=== PATIENT | male | born 1945 | race African-American/Black ===

== ENCOUNTER 2016-08-17 13:04 | Inpatient (IN) | payer OTHER ==
--- NOTE | 2016-08-17 17:32 | HP ---
Admission ROS [facility] Chief Complaint: i am here for rehab from alcohol Allergies/Adverse Reactions: Allergies Allergy/AdvReac Type Severity Reaction Status Date / Time No Known Allergies Allergy Verified 08/18/14 20:03 History of Present Illness: this 71 years old male with alcohol dependence for rehab,[place] htn gerd neuropathy hypercholesterolemia nicotine dependence longest period of sobriety 19 months Exam Limitations: No Limitations - Ebola screening Have you traveled outside of the country in the last 21 days: No (N) Have you had contact with anyone from an Ebola affected area: No Do you have a fever: No - Review of Systems Constitutional: No Symptoms Reported EENT: reports: No Symptoms Reported Respiratory: reports: No Symptoms reported Cardiac: reports: No Symptoms Reported GI: reports: No Symptoms Reported : reports: No Symptoms Reported Musculoskeletal: reports: No Symptoms Reported Integumentary: reports: No Symptoms Reported Neuro: reports: No Symptoms reported Endocrine: reports: No Symptoms Reported Hematology: reports: No Symptoms Reported Psychiatric: reports: No Sypmtoms Reported, Judgement Intact, Mood/Affect Appropiate, Orientated x3 Patient History - Patient Medical History Hx Anemia: No Hx Asthma: No Hx Chronic Obstructive Pulmonary Disease (COPD): No Hx Cancer: No Hx Cardiac Disorders: No Hx Congestive Heart Failure: No Hx Hypertension: Yes (on med) Hx Hypercholesterolemia: Yes (on med) Hx Pacemaker: No HX Cerebrovascular Accident: No Hx Seizures: No Hx Dementia: No Hx Diabetes: No Hx Gastrointestinal Disorders: Yes (ACID REFLUX) Hx Liver Disease: Yes (HEP C) Hx Genitourinary Disorders: No Hx Sexually Transmitted Disorders: No Hx Renal Disease (ESRD): No Hx Thyroid Disease: No Hx Human Immunodeficiency Virus (HIV): No Hx Hepatitis C: Yes (under the care of liver specialist) Hx Depression: No Hx Suicide Attempt: No Hx Bipolar Disorder: No Hx Schizophrenia: No Other Medical History: no suicida,mno homicidal - Patient Surgical History Past Surgical History: Yes Hx Neurologic Surgery: No Hx Cataract Extraction: No Hx Cardiac Surgery: No Hx Lung Surgery: No Hx Breast Surgery: No Hx Breast Biopsy: No Hx Abdominal Surgery: No Hx Appendectomy: No Hx Cholecystectomy: No Hx Genitourinary Surgery: No Hx Section: No Hx Orthopedic Surgery: Yes (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,3RD,4TH,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 History Hx Alcohol Use: Yes Hx Substance Use: No Substance Use Type: Alcohol Hx Substance Use Treatment: Yes ([place] today 08/17/16) - Substances Abused Alcohol Route: Oral Frequency: Daily Amount used: 3 to 4 pints of vodka Age of first use: 18 Date of Last Use: 08/11/16 Family Disease History - Family Disease History Family Disease History: Heart Disease: Father ( OF [place]), Sister ([place] X 1) Admission Physical Exam [facility] - Physical General Appearance: Yes: Within Normal Limits HEENTM: Yes: Within Normal Limits, Hearing grossly Normal, Normal ENT Inspection , Pharynx Normal Respiratory: Yes: Lungs Clear, Normal Breath Sounds, No Respiratory Distress Neck: Yes: Supple, Trachea in good position Breast: Yes: Within Normal Limits Cardiology: Yes: Within Normal Limits, Regular Rhythm, Regular Rate, S1, S2 Abdominal: Yes: Within Normal Limits, Normal Bowel Sounds, Non Tender, Flat, Soft Genitourinary: Yes: Within Normal Limits Back: Yes: Within Normal Limits Musculoskeletal: Yes: Within Normal Limits Extremities: Yes: Within Normal Limits 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, Fully Oriented, Alert, Motor Strength 5/5 Integumentary: Yes: Within Normal Limits Lymphatic: Yes: Within Normal Limits - Diagnostic (1) Alcohol dependence Current Visit: No Status: Active (2) Essential hypertension Current Visit: No Status: Active (3) Gastroesophageal reflux disease Current Visit: No Status: Active (4) Weight decreased Current Visit: No Status: Active (5) hypercholesterolemia Current Visit: No Status: Active (6) s/p surgery for fx left elbow Current Visit: No Status: Active (7) syncope alcohol related Current Visit: No Status: Active Cleared for Admission [facility] - Detox or Rehab Claeared for Rehab Admission: Yes [facility] Breath Alcohol Content Breath Alcohol Content: 0
[2016-08-17] MEDS ORDERED: LOPERAMIDE HCL 2 MG CAPSULE PO PRN (17:45)
[2016-08-17] MEDS ORDERED: IBUPROFEN 400 MG TABLET (FP) PO PRN (17:45)
[2016-08-17] MEDS ORDERED: guaiFENesin/D-METHORPHAN HB 10 ML UNIT-DOSE CUPS PO PRN (17:45)
[2016-08-17] MEDS ORDERED: P-EPHED 60MG/TRIPROLIDI 2.5MG TABLET PO PRN (17:45)
[2016-08-17] MEDS ORDERED: hydrOXYzine PAMOATE 25 MG CAPSULE (FP) PO PRN (17:45)
[2016-08-17] MEDS ORDERED: MAGNESIUM CITRATE 300 ML BOTTLE PO PRN (17:45)
[2016-08-17] MEDS ORDERED: ACETAMINOPHEN 325 MG TABLET (FP) PO PRN (17:45)
[2016-08-17] MEDS ORDERED: MENTHOL/PHENOL 1 EACH UD MM PRN (17:45)
[2016-08-17] MEDS ORDERED: MAG HYDROX/AL HYDROX/SIMETH 30 ML UNIT-DOSE CUP PO PRN (17:45)
[2016-08-17 19:15] VITALS: BMI 22.3
[2016-08-17] MEDS: ASPIRIN 81 MG CHEWABLE TABLETS PO SCH (21:48)
[2016-08-17] MEDS: THIAMINE HCL 100 MG TABLET (FP) PO SCH (21:48)
[2016-08-17] MEDS: ATORVASTATIN CA 20 MG TABLET (FP) PO SCH (21:48)
[2016-08-17] MEDS: GABAPENTIN 300 MG CAPSULE (FP) PO SCH (21:48)
[2016-08-17] MEDS: PANTOPRAZOLE 40 MG TABLET (FP) PO SCH (21:49)
[2016-08-17] MEDS: amLODIPine BESYLATE 5 MG TABLET (FP) PO SCH (23:23)
[2016-08-18 00:41] LABS: URINE APPEARANCE CLEAR; URINE BILIRUBIN NEGATIVE (NEGATIVE); URINE BLOOD NEGATIVE (NEGATIVE); URINE COLOR YELLOW; URINE GLUCOSE (UA) NEGATIVE (NEGATIVE); URINE KETONE NEGATIVE (NEGATIVE); URINE LEUK ESTERASE NEGATIVE (NEGATIVE); URINE NITRITE NEGATIVE (NEGATIVE); URINE PROTEIN NEGATIVE (NEGATIVE); URINE UROBILINOGEN NEGATIVE E.U./dl (0.2-1.0)
[2016-08-18] MEDS: GABAPENTIN 300 MG CAPSULE (FP) PO SCH ×3 (06:48→21:44)
--- NOTE | 2016-08-18 07:10 | HP ---
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 He denies that he was homeless at the time contrary to what was reported in Dr Feng who saw him during his July 2014 admission in rehab to this unit. Denies previous psychiatric admission, treatment with psychotropic medication or suicidal ideations/ attempt. Report feeling and sleeping well at present Physical/Sexual Abuse/Trauma History: Denies history of emotional, physical or sexual as well as DV relationship Additional Comment: Reports history of multiple arrests including at least 2 felony convictions. Denies being on parole/probation currently Vital Signs: Vital Signs - 24 hr 08/17/16 08/17/16 08/18/16 19:11 20:30 00:30 Temperature 95.3 F L Pulse Rate 87 83 Respiratory 18 18 18 Rate Blood Pressure 121/67 92/35 08/18/16 08/18/16 03:30 06:55 Temperature 97.4 F L Pulse Rate 70 Respiratory 18 18 Rate Blood Pressure 130/86 Allergies/Adverse Reactions: Allergies Allergy/AdvReac Type Severity Reaction Status Date / Time No Known Allergies Allergy Verified 08/17/16 17:45 Date of last physical exam: 08/17/16 Concur with the findings of this exam: Yes - Substance Abuse/Tx History Hx Alcohol Use: Yes Hx Substance Use: No Substance Use Type: Alcohol (Started drinking alcohol at age 18, consumes 3-4 pints daily. Last drink on 08/11/16) Hx Substance Use Treatment: Yes (multiple inpt detox/rehab including one of each @ [facility]) - Admission Criteria Previous failed treatment: No Poor recovery environment: Yes Comorbidities: Yes Lacks judgement: Yes Mental Status Exam - Mental Status Exam Alert and Oriented to: Time, Place, Person Cognitive Function: Fair Patient Appearance: Well Groomed Mood: Hopeful, Euthymic Patient Behavior: Cooperative Speech Pattern: Clear Voice Loudness: Normal Thought Process: Intact Hallucinations: Denies Suicidal Ideation: Denies Homicidal Ideation: Denies Insight/Judgement: Fair Sleep: Well Appetite: Good Muscle strength/Tone: Normal Gait/Station: Normal Psychiatric Findings - Problem List ([place] 1, 2,3) (1) Alcohol dependence Current Visit: No Status: Active (2) Nicotine dependence Current Visit: No Status: Acute (3) Essential hypertension Current Visit: No Status: Active (4) Gastroesophageal reflux disease Current Visit: No Status: Active (5) hypercholesterolemia Current Visit: No Status: Active (6) s/p surgery for fx left elbow Current Visit: No Status: Active - Initial Treatment Plan Initial Treatment Plan: Monitor progress
[2016-08-18 10:05] LABS: MCH 31.2 pg (25.7-33.7); MCHC 32.3 g/dl (32.0-35.9); MEAN CELL VOLUME 96.3 fl (80-96); MEAN PLT VOLUME 9.5 fl (7.5-11.1); PLATELET COUNT 192 K/MM3 (134-434); RDW 17.3 % (11.9-15.9); WHITE BLOOD COUNT 3.3 K/mm3 (4.0-10.0)
--- NOTE | 2016-08-18 10:18 | EKG ---
Test Reason : Blood Pressure : / mmHG Vent. Rate : 086 BPM Atrial Rate : 086 BPM P-R Int : 148 ms QRS Dur : 080 ms QT Int : 354 ms P-R-T Axes : 072 014 060 degrees QTc Int : 423 ms NORMAL SINUS RHYTHM SEPTAL INFARCT (CITED ON OR BEFORE 28-JUN-2012) ABNORMAL ECG WHEN COMPARED WITH ECG OF 28-JUN-2012 20:00, QUESTIONABLE CHANGE IN INITIAL FORCES OF SEPTAL LEADS Confirmed by CARLOS EDUARDO SAUNDERS MD ([id number]) on 08/18/2016 10:17:49 AM Referred By: Zaid Cotter Confirmed By:CARLOS EDAURDO SAUNDERS MD
[2016-08-18] MEDS: PANTOPRAZOLE 40 MG TABLET (FP) PO SCH (10:46)
[2016-08-18] MEDS: PRENATAL VITAMINS W/ FOLIC ACID TABLET (FP) PO SCH (10:46)
[2016-08-18] MEDS: amLODIPine BESYLATE 5 MG TABLET (FP) PO SCH (10:46)
[2016-08-18] MEDS: ASPIRIN 81 MG CHEWABLE TABLETS PO SCH (10:46)
[2016-08-18 12:03] LABS: ALK PHOS 86 U/L (45-117); ANION GAP 10 (8-16); BILIRUBIN,TOTAL 0.5 mg/dL (0.2-1.0); CALCIUM 9.1 mg/dL (8.5-10.1); CO2 28 mmol/L (21-32); CREATININE 0.9 mg/dL (0.7-1.3); GLUCOSE,RANDOM 89 mg/dL (74-106); SGOT/AST 33 U/L (15-37); SGPT/ALT 31 U/L (12-78); TOT PROT 8.1 g/dl (6.4-8.2)
[2016-08-18 12:09] LABS: HIV 1 & 2 AB NEGATIVE; HIV 1 AGp24 NEGATIVE
[2016-08-18] MEDS: THIAMINE HCL 100 MG TABLET (FP) PO SCH (21:44)
[2016-08-18] MEDS: ATORVASTATIN CA 20 MG TABLET (FP) PO SCH (21:44)
[2016-08-19] MEDS: MAGNESIUM HYDROX 2400MG/30ML ORAL SUSPENSION 30 ML CUP PO PRN ×2 (00:02→15:18)
[2016-08-19] MEDS: GABAPENTIN 300 MG CAPSULE (FP) PO SCH ×3 (06:18→21:21)
[2016-08-19] MEDS: PRENATAL VITAMINS W/ FOLIC ACID TABLET (FP) PO SCH (09:42)
[2016-08-19] MEDS: PANTOPRAZOLE 40 MG TABLET (FP) PO SCH (09:43)
[2016-08-19] MEDS: ASPIRIN 81 MG CHEWABLE TABLETS PO SCH (09:43)
[2016-08-19] MEDS: amLODIPine BESYLATE 5 MG TABLET (FP) PO SCH (09:43)
[2016-08-19] MEDS: ATORVASTATIN CA 20 MG TABLET (FP) PO SCH (21:21)
[2016-08-19] MEDS: THIAMINE HCL 100 MG TABLET (FP) PO SCH (21:21)
[2016-08-20] MEDS: diphenhydrAMINE HCL 50 MG CAPSULE PO PRN (00:47)
[2016-08-20] MEDS: GABAPENTIN 300 MG CAPSULE (FP) PO SCH ×3 (06:15→21:12)
[2016-08-20] MEDS: PRENATAL VITAMINS W/ FOLIC ACID TABLET (FP) PO SCH (09:30)
[2016-08-20] MEDS: ASPIRIN 81 MG CHEWABLE TABLETS PO SCH (09:30)
[2016-08-20] MEDS: PANTOPRAZOLE 40 MG TABLET (FP) PO SCH (09:30)
[2016-08-20] MEDS: amLODIPine BESYLATE 5 MG TABLET (FP) PO SCH (09:30)
[2016-08-20] MEDS: THIAMINE HCL 100 MG TABLET (FP) PO SCH (21:12)
[2016-08-20] MEDS: ATORVASTATIN CA 20 MG TABLET (FP) PO SCH (21:12)
[2016-08-21] MEDS: diphenhydrAMINE HCL 50 MG CAPSULE PO PRN (01:14)
[2016-08-21] MEDS: GABAPENTIN 300 MG CAPSULE (FP) PO SCH ×3 (06:17→22:11)
[2016-08-21] MEDS: PANTOPRAZOLE 40 MG TABLET (FP) PO SCH (09:50)
[2016-08-21] MEDS: amLODIPine BESYLATE 5 MG TABLET (FP) PO SCH (09:50)
[2016-08-21] MEDS: PRENATAL VITAMINS W/ FOLIC ACID TABLET (FP) PO SCH (09:50)
[2016-08-21] MEDS: ASPIRIN 81 MG CHEWABLE TABLETS PO SCH (09:50)
[2016-08-21] MEDS: THIAMINE HCL 100 MG TABLET (FP) PO SCH (22:11)
[2016-08-21] MEDS: ATORVASTATIN CA 20 MG TABLET (FP) PO SCH (22:11)
[2016-08-22] MEDS: GABAPENTIN 300 MG CAPSULE (FP) PO SCH ×3 (06:07→21:12)
[2016-08-22] MEDS ORDERED: PT OWN MED DRAWER 7, Y5N ONE (08:41)
[2016-08-22] MEDS: VITAMIN E 400 INTERNATIONAL-UNITS CAPSULE (FP) PO SCH (09:49)
[2016-08-22] MEDS: ASPIRIN 81 MG CHEWABLE TABLETS PO SCH (09:49)
[2016-08-22] MEDS: PANTOPRAZOLE 40 MG TABLET (FP) PO SCH (09:49)
[2016-08-22] MEDS: amLODIPine BESYLATE 5 MG TABLET (FP) PO SCH (09:49)
[2016-08-22] MEDS: PRENATAL VITAMINS W/ FOLIC ACID TABLET (FP) PO SCH (09:49)
[2016-08-22] MEDS: ATORVASTATIN CA 20 MG TABLET (FP) PO SCH (21:12)
[2016-08-22] MEDS: THIAMINE HCL 100 MG TABLET (FP) PO SCH (21:12)
[2016-08-23] MEDS: GABAPENTIN 300 MG CAPSULE (FP) PO SCH ×3 (05:55→22:08)
[2016-08-23] MEDS ORDERED: PT OWN MED DRAWER 7, Y5N ONE (09:10)
[2016-08-23] MEDS: PANTOPRAZOLE 40 MG TABLET (FP) PO SCH (09:47)
[2016-08-23] MEDS: amLODIPine BESYLATE 5 MG TABLET (FP) PO SCH (09:47)
[2016-08-23] MEDS: ASPIRIN 81 MG CHEWABLE TABLETS PO SCH (09:47)
[2016-08-23] MEDS: VITAMIN E 400 INTERNATIONAL-UNITS CAPSULE (FP) PO SCH (09:48)
[2016-08-23] MEDS: PRENATAL VITAMINS W/ FOLIC ACID TABLET (FP) PO SCH (09:50)
[2016-08-23] MEDS: THIAMINE HCL 100 MG TABLET (FP) PO SCH (22:08)
[2016-08-23] MEDS: ATORVASTATIN CA 20 MG TABLET (FP) PO SCH (22:09)
[2016-08-24] MEDS: diphenhydrAMINE HCL 50 MG CAPSULE PO PRN ×2 (01:14→21:46)
[2016-08-24] MEDS: GABAPENTIN 300 MG CAPSULE (FP) PO SCH ×3 (06:11→21:47)
[2016-08-24] MEDS: PANTOPRAZOLE 40 MG TABLET (FP) PO SCH (09:45)
[2016-08-24] MEDS: ASPIRIN 81 MG CHEWABLE TABLETS PO SCH (09:45)
[2016-08-24] MEDS: amLODIPine BESYLATE 5 MG TABLET (FP) PO SCH (09:45)
[2016-08-24] MEDS: PRENATAL VITAMINS W/ FOLIC ACID TABLET (FP) PO SCH (09:45)
[2016-08-24] MEDS: VITAMIN E 400 INTERNATIONAL-UNITS CAPSULE (FP) PO SCH (10:52)
[2016-08-24] MEDS ORDERED: IBUPROFEN 600 MG TABLET (FP) PO PRN (13:26)
[2016-08-24] MEDS: THIAMINE HCL 100 MG TABLET (FP) PO SCH (21:46)
[2016-08-24] MEDS: ATORVASTATIN CA 20 MG TABLET (FP) PO SCH (21:46)
[2016-08-25] MEDS: GABAPENTIN 300 MG CAPSULE (FP) PO SCH ×3 (06:03→21:03)
[2016-08-25] MEDS: PANTOPRAZOLE 40 MG TABLET (FP) PO SCH (09:54)
[2016-08-25] MEDS: PRENATAL VITAMINS W/ FOLIC ACID TABLET (FP) PO SCH (09:54)
[2016-08-25] MEDS: ASPIRIN 81 MG CHEWABLE TABLETS PO SCH (09:54)
[2016-08-25] MEDS: amLODIPine BESYLATE 5 MG TABLET (FP) PO SCH (09:54)
[2016-08-25] MEDS: VITAMIN E 400 INTERNATIONAL-UNITS CAPSULE (FP) PO SCH (09:56)
[2016-08-25] MEDS ORDERED: PT OWN MED DRAWER 7, Y5N ONE (09:57)
[2016-08-25] MEDS: THIAMINE HCL 100 MG TABLET (FP) PO SCH (21:02)
[2016-08-25] MEDS: ATORVASTATIN CA 20 MG TABLET (FP) PO SCH (21:02)
[2016-08-25] MEDS: diphenhydrAMINE HCL 50 MG CAPSULE PO PRN (21:03)
[2016-08-26] MEDS: GABAPENTIN 300 MG CAPSULE (FP) PO SCH ×3 (05:53→21:13)
[2016-08-26] MEDS: amLODIPine BESYLATE 5 MG TABLET (FP) PO SCH (09:43)
[2016-08-26] MEDS: PRENATAL VITAMINS W/ FOLIC ACID TABLET (FP) PO SCH (09:43)
[2016-08-26] MEDS: ASPIRIN 81 MG CHEWABLE TABLETS PO SCH (09:43)
[2016-08-26] MEDS: PANTOPRAZOLE 40 MG TABLET (FP) PO SCH (09:43)
[2016-08-26] MEDS ORDERED: PT OWN MED DRAWER 7, Y5N ONE (09:44)
[2016-08-26] MEDS: VITAMIN E 400 INTERNATIONAL-UNITS CAPSULE (FP) PO SCH (09:44)
[2016-08-26] MEDS: ATORVASTATIN CA 20 MG TABLET (FP) PO SCH (21:13)
[2016-08-26] MEDS: THIAMINE HCL 100 MG TABLET (FP) PO SCH (21:13)
[2016-08-26] MEDS: diphenhydrAMINE HCL 50 MG CAPSULE PO PRN (21:14)
[2016-08-27] MEDS: GABAPENTIN 300 MG CAPSULE (FP) PO SCH ×3 (05:55→21:12)
[2016-08-27] MEDS ORDERED: PT OWN MED DRAWER 7, Y5N ONE (08:24)
[2016-08-27] MEDS: PRENATAL VITAMINS W/ FOLIC ACID TABLET (FP) PO SCH (09:45)
[2016-08-27] MEDS: amLODIPine BESYLATE 5 MG TABLET (FP) PO SCH (09:46)
[2016-08-27] MEDS: ASPIRIN 81 MG CHEWABLE TABLETS PO SCH (09:46)
[2016-08-27] MEDS: PANTOPRAZOLE 40 MG TABLET (FP) PO SCH (09:46)
[2016-08-27] MEDS: VITAMIN E 400 INTERNATIONAL-UNITS CAPSULE (FP) PO SCH (09:55)
[2016-08-27] MEDS: ATORVASTATIN CA 20 MG TABLET (FP) PO SCH (21:11)
[2016-08-27] MEDS: THIAMINE HCL 100 MG TABLET (FP) PO SCH (21:11)
[2016-08-28] MEDS: GABAPENTIN 300 MG CAPSULE (FP) PO SCH ×3 (05:51→21:30)
[2016-08-28] MEDS: PANTOPRAZOLE 40 MG TABLET (FP) PO SCH (09:44)
[2016-08-28] MEDS: PRENATAL VITAMINS W/ FOLIC ACID TABLET (FP) PO SCH (09:44)
[2016-08-28] MEDS: ASPIRIN 81 MG CHEWABLE TABLETS PO SCH (09:44)
[2016-08-28] MEDS: amLODIPine BESYLATE 5 MG TABLET (FP) PO SCH (09:44)
[2016-08-28] MEDS: VITAMIN E 400 INTERNATIONAL-UNITS CAPSULE (FP) PO SCH (10:59)
[2016-08-28] MEDS: THIAMINE HCL 100 MG TABLET (FP) PO SCH (21:29)
[2016-08-28] MEDS: ATORVASTATIN CA 20 MG TABLET (FP) PO SCH (21:30)
[2016-08-28] MEDS: diphenhydrAMINE HCL 50 MG CAPSULE PO PRN (21:30)
[2016-08-29] MEDS: GABAPENTIN 300 MG CAPSULE (FP) PO SCH ×3 (05:53→21:20)
[2016-08-29] MEDS: amLODIPine BESYLATE 5 MG TABLET (FP) PO SCH (09:42)
[2016-08-29] MEDS: ASPIRIN 81 MG CHEWABLE TABLETS PO SCH (09:42)
[2016-08-29] MEDS: PRENATAL VITAMINS W/ FOLIC ACID TABLET (FP) PO SCH (09:42)
[2016-08-29] MEDS: PANTOPRAZOLE 40 MG TABLET (FP) PO SCH (09:42)
[2016-08-29] MEDS: VITAMIN E 400 INTERNATIONAL-UNITS CAPSULE (FP) PO SCH (09:42)
[2016-08-29] MEDS: ATORVASTATIN CA 20 MG TABLET (FP) PO SCH (21:19)
[2016-08-29] MEDS: THIAMINE HCL 100 MG TABLET (FP) PO SCH (21:19)
[2016-08-29] MEDS: diphenhydrAMINE HCL 50 MG CAPSULE PO PRN (21:20)
[2016-08-30] MEDS: GABAPENTIN 300 MG CAPSULE (FP) PO SCH ×3 (05:55→21:29)
[2016-08-30] MEDS ORDERED: PT OWN MED DRAWER 7, Y5N ONE (08:43)
[2016-08-30] MEDS: VITAMIN E 400 INTERNATIONAL-UNITS CAPSULE (FP) PO SCH (09:48)
[2016-08-30] MEDS: ASPIRIN 81 MG CHEWABLE TABLETS PO SCH (09:48)
[2016-08-30] MEDS: PRENATAL VITAMINS W/ FOLIC ACID TABLET (FP) PO SCH (09:48)
[2016-08-30] MEDS: amLODIPine BESYLATE 5 MG TABLET (FP) PO SCH (09:48)
[2016-08-30] MEDS: PANTOPRAZOLE 40 MG TABLET (FP) PO SCH (09:48)
[2016-08-30] MEDS: THIAMINE HCL 100 MG TABLET (FP) PO SCH (21:28)
[2016-08-30] MEDS: diphenhydrAMINE HCL 50 MG CAPSULE PO PRN (21:29)
[2016-08-30] MEDS: ATORVASTATIN CA 20 MG TABLET (FP) PO SCH (21:29)
[2016-08-31] MEDS: GABAPENTIN 300 MG CAPSULE (FP) PO SCH ×3 (05:52→21:57)
[2016-08-31] MEDS: PRENATAL VITAMINS W/ FOLIC ACID TABLET (FP) PO SCH (09:40)
[2016-08-31] MEDS: PANTOPRAZOLE 40 MG TABLET (FP) PO SCH (09:40)
[2016-08-31] MEDS: ASPIRIN 81 MG CHEWABLE TABLETS PO SCH (09:40)
[2016-08-31] MEDS: amLODIPine BESYLATE 5 MG TABLET (FP) PO SCH (09:40)
[2016-08-31] MEDS: VITAMIN E 400 INTERNATIONAL-UNITS CAPSULE (FP) PO SCH (09:42)
[2016-08-31] MEDS ORDERED: PT OWN MED DRAWER 7, Y5N ONE (09:43)
[2016-08-31] MEDS: ATORVASTATIN CA 20 MG TABLET (FP) PO SCH (21:57)
[2016-08-31] MEDS: diphenhydrAMINE HCL 50 MG CAPSULE PO PRN (21:57)
[2016-08-31] MEDS: THIAMINE HCL 100 MG TABLET (FP) PO SCH (21:57)
[2016-09-01] MEDS: GABAPENTIN 300 MG CAPSULE (FP) PO SCH ×3 (05:56→22:05)
[2016-09-01] MEDS ORDERED: PT OWN MED DRAWER 7, Y5N ONE (08:51)
[2016-09-01] MEDS: amLODIPine BESYLATE 5 MG TABLET (FP) PO SCH (09:44)
[2016-09-01] MEDS: ASPIRIN 81 MG CHEWABLE TABLETS PO SCH (09:45)
[2016-09-01] MEDS: PRENATAL VITAMINS W/ FOLIC ACID TABLET (FP) PO SCH (09:45)
[2016-09-01] MEDS: PANTOPRAZOLE 40 MG TABLET (FP) PO SCH (09:45)
[2016-09-01] MEDS: VITAMIN E 400 INTERNATIONAL-UNITS CAPSULE (FP) PO SCH (09:45)
[2016-09-01] MEDS: ATORVASTATIN CA 20 MG TABLET (FP) PO SCH (22:05)
[2016-09-01] MEDS: THIAMINE HCL 100 MG TABLET (FP) PO SCH (22:05)
[2016-09-01] MEDS: diphenhydrAMINE HCL 50 MG CAPSULE PO PRN (22:06)
[2016-09-02] MEDS: GABAPENTIN 300 MG CAPSULE (FP) PO SCH ×3 (06:24→21:05)
[2016-09-02] MEDS ORDERED: PT OWN MED DRAWER 7, Y5N ONE (08:46)
[2016-09-02] MEDS: amLODIPine BESYLATE 5 MG TABLET (FP) PO SCH (09:36)
[2016-09-02] MEDS: ASPIRIN 81 MG CHEWABLE TABLETS PO SCH (09:36)
[2016-09-02] MEDS: PANTOPRAZOLE 40 MG TABLET (FP) PO SCH (09:36)
[2016-09-02] MEDS: VITAMIN E 400 INTERNATIONAL-UNITS CAPSULE (FP) PO SCH (09:36)
[2016-09-02] MEDS: PRENATAL VITAMINS W/ FOLIC ACID TABLET (FP) PO SCH (09:36)
[2016-09-02] MEDS: diphenhydrAMINE HCL 50 MG CAPSULE PO PRN (21:04)
[2016-09-02] MEDS: THIAMINE HCL 100 MG TABLET (FP) PO SCH (21:04)
[2016-09-02] MEDS: ATORVASTATIN CA 20 MG TABLET (FP) PO SCH (21:04)
[2016-09-03] MEDS: GABAPENTIN 300 MG CAPSULE (FP) PO SCH ×3 (06:18→21:20)
[2016-09-03] MEDS ORDERED: PT OWN MED DRAWER 7, Y5N ONE (08:25)
[2016-09-03] MEDS: ASPIRIN 81 MG CHEWABLE TABLETS PO SCH (09:41)
[2016-09-03] MEDS: VITAMIN E 400 INTERNATIONAL-UNITS CAPSULE (FP) PO SCH (09:42)
[2016-09-03] MEDS: PANTOPRAZOLE 40 MG TABLET (FP) PO SCH (09:42)
[2016-09-03] MEDS: amLODIPine BESYLATE 5 MG TABLET (FP) PO SCH (09:42)
[2016-09-03] MEDS: PRENATAL VITAMINS W/ FOLIC ACID TABLET (FP) PO SCH (09:42)
[2016-09-03] MEDS: ATORVASTATIN CA 20 MG TABLET (FP) PO SCH (21:20)
[2016-09-03] MEDS: THIAMINE HCL 100 MG TABLET (FP) PO SCH (21:20)
[2016-09-03] MEDS: diphenhydrAMINE HCL 50 MG CAPSULE PO PRN (21:21)
[2016-09-04] MEDS: GABAPENTIN 300 MG CAPSULE (FP) PO SCH ×3 (06:32→22:13)
[2016-09-04] MEDS ORDERED: PT OWN MED DRAWER 7, Y5N ONE (08:33)
[2016-09-04] MEDS: VITAMIN E 400 INTERNATIONAL-UNITS CAPSULE (FP) PO SCH (09:50)
[2016-09-04] MEDS: amLODIPine BESYLATE 5 MG TABLET (FP) PO SCH (09:50)
[2016-09-04] MEDS: PRENATAL VITAMINS W/ FOLIC ACID TABLET (FP) PO SCH (09:50)
[2016-09-04] MEDS: PANTOPRAZOLE 40 MG TABLET (FP) PO SCH (09:50)
[2016-09-04] MEDS: ASPIRIN 81 MG CHEWABLE TABLETS PO SCH (09:50)
[2016-09-04] MEDS ORDERED: AMMONIUM LACTATE 12% LOTION 225 GM BOTTLE TP PRN (14:34)
[2016-09-04] MEDS: diphenhydrAMINE HCL 50 MG CAPSULE PO PRN (22:13)
[2016-09-04] MEDS: THIAMINE HCL 100 MG TABLET (FP) PO SCH (22:13)
[2016-09-04] MEDS: ATORVASTATIN CA 20 MG TABLET (FP) PO SCH (22:13)
[2016-09-05] MEDS: GABAPENTIN 300 MG CAPSULE (FP) PO SCH ×3 (05:56→21:02)
[2016-09-05] MEDS ORDERED: PT OWN MED DRAWER 7, Y5N ONE (08:46)
[2016-09-05] MEDS: amLODIPine BESYLATE 5 MG TABLET (FP) PO SCH (09:44)
[2016-09-05] MEDS: VITAMIN E 400 INTERNATIONAL-UNITS CAPSULE (FP) PO SCH (09:44)
[2016-09-05] MEDS: PANTOPRAZOLE 40 MG TABLET (FP) PO SCH (09:44)
[2016-09-05] MEDS: ASPIRIN 81 MG CHEWABLE TABLETS PO SCH (09:44)
[2016-09-05] MEDS: PRENATAL VITAMINS W/ FOLIC ACID TABLET (FP) PO SCH (09:44)
[2016-09-05 09:58] VITALS: PULSE 81
--- NOTE | 2016-09-05 14:33 | PN ---
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 Discharge Note HPI: Patient addressing Alcohol Dependence comorbid with Nicotine Dependence ROS: HTN, Hyperlipidemia, GERD were medically managed Current Medications: Active Medications Generic Name Dose Route Start Last Admin Trade Name Freq PRN Reason Stop Dose Admin Acetaminophen 650 mg 08/17/16 17:45 Tylenol - PO Q4H PRN PAIN Al Hydroxide/Mg Hydroxide 30 ml 08/17/16 17:45 Mylanta Oral Suspension - PO Q6H PRN DYSPEPSIA Amlodipine Besylate 5 mg 08/17/16 18:30 09/05/16 09:44 Norvasc - PO 5 mg DAILY URIAH Administration Aspirin 81 mg 08/17/16 19:15 09/05/16 09:44 Asa - PO 81 mg DAILY URIAH Administration Atorvastatin Calcium 20 mg 08/17/16 22:00 09/04/16 22:13 Lipitor - PO 20 mg HS URIAH Administration Diphenhydramine HCl 50 mg 08/17/16 17:45 09/04/16 22:13 Benadryl - PO 50 mg HSMR1 PRN Administration INSOMNIA Eucalyptus/Menthol/Phenol/Sorbitol 1 each 08/17/16 17:45 08/29/16 21:20 Cepastat Lozenge - MM 1 each Q4H PRN Administration SORE THROAT Gabapentin 600 mg 08/17/16 22:00 09/05/16 05:56 Neurontin - PO 600 mg TID URIAH Administration Guaifenesin 10 ml 08/17/16 17:45 Robitussin Dm - PO Q6H PRN COUGH Hydroxyzine Pamoate 25 mg 08/17/16 17:45 Vistaril - PO Q4H PRN AGITATION Ibuprofen 600 mg 08/24/16 13:26 Motrin - PO Q6H PRN SEVERE PAIN Lactic Acid 1 applic 09/04/16 14:34 Lac-Hydrin 12 TP BID PRN DRY SKIN Loperamide HCl 4 mg 08/17/16 17:45 Imodium - PO Q6H PRN DIARRHEA Magnesium Citrate 300 ml 08/17/16 17:45 Citroma - PO Q48H PRN CONSTIPATION Magnesium Hydroxide 30 ml 08/17/16 17:45 08/19/16 15:18 Milk Of Magnesia - PO 30 ml DAILY PRN Administration CONSTIPATION Pantoprazole Sodium 40 mg 08/17/16 18:30 09/05/16 09:44 Protonix - PO 40 mg DAILY URIAH Administration Multivit/Folic Acid/Iron 1 tab 08/18/16 10:00 09/05/16 09:44 Vitamins (Sjr) - PO 1 tab DAILY URIAH Administration Pseudoephedrine/Triprolidine 1 combo 08/17/16 17:45 Actifed - PO TID PRN NASAL CONGESTION Thiamine HCl 100 mg 08/17/16 22:00 09/04/16 22:13 Vitamin B1 - PO 100 mg HS URIAH Administration Vitamin E 400 unit 08/22/16 10:00 09/05/16 09:44 Vitamin E - PO 400 unit DAILY URIAH Administration Current Side Effect: No Lab tests ordered: Yes Lab tests reviewed: Yes Provider note:: Patient will complete this program on 09/06/16. He has met his treatment goals and will continue to address his issues in outpatient treatment at [facility]. 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 He is stable for discharge on 09/06/16 Total face to face time:: 35 Mental Status Exam - Mental Status Exam Alert and Oriented to: Time, Place, Person Cognitive Function: Fair Patient Appearance: Well Groomed Mood: Hopeful, Euthymic Affect: Appropriate Patient Behavior: Cooperative Speech Pattern: Clear Voice Loudness: Normal Thought Process: Intact Hallucinations: Denies Suicidal Ideation: Denies Homicidal Ideation: Denies Insight/Judgement: Fair Sleep: Fair Appetite: Good Muscle strength/Tone: Normal Gait/Station: Normal Psychiatric Treatment Plan - Problem List (1) Alcohol dependence Current Visit: No (2) Nicotine dependence Current Visit: No (3) Essential hypertension Current Visit: No (4) Gastroesophageal reflux disease Current Visit: No (5) hypercholesterolemia Current Visit: No (6) s/p surgery for fx left elbow Current Visit: No Initial treatment plan: Patient will be discharged tomorrow and referred to the [facility] for outpatient treatment
[2016-09-05] MEDS: diphenhydrAMINE HCL 50 MG CAPSULE PO PRN (21:02)
[2016-09-05] MEDS: ATORVASTATIN CA 20 MG TABLET (FP) PO SCH (21:02)
[2016-09-05] MEDS: THIAMINE HCL 100 MG TABLET (FP) PO SCH (21:02)
[2016-09-06] MEDS: GABAPENTIN 300 MG CAPSULE (FP) PO SCH (06:00)
[2016-09-06 06:38] VITALS: BP 136/78; TEMP 98.3
[2016-09-06] MEDS ORDERED: PT OWN MED DRAWER 7, Y5N ONE (08:38)
[2016-09-06] MEDS: amLODIPine BESYLATE 5 MG TABLET (FP) PO SCH (09:41)
[2016-09-06] MEDS: VITAMIN E 400 INTERNATIONAL-UNITS CAPSULE (FP) PO SCH (09:41)
[2016-09-06] MEDS: PRENATAL VITAMINS W/ FOLIC ACID TABLET (FP) PO SCH (09:41)
[2016-09-06] MEDS: PANTOPRAZOLE 40 MG TABLET (FP) PO SCH (09:41)
[2016-09-06] MEDS: ASPIRIN 81 MG CHEWABLE TABLETS PO SCH (09:41)
== END 2016-09-06 11:15 | disposition home or self-care (01) | DRG 895 ==
LOC: YASAS 13:04 → Y3W 18:16
PROVIDERS: ADMIT Psychiatry & Neurology Psychiatry; ATTEND Psychiatry & Neurology Psychiatry
PROC: HZ42ZZZ Group Counseling for Substance Abuse Treatment, Cognitive-Behavioral (ICD-10-PCS; principal; 2016-09-05)
DX: F11.20 Opioid dependence, uncomplicated (principal); F17.210 Nicotine dependence, cigarettes, uncomplicated; I10 Essential (primary) hypertension; K21.9 Gastro-esophageal reflux disease without esophagitis; B18.2 Chronic viral hepatitis C; Z87.81 Personal history of (healed) traumatic fracture; Z59.0 Homelessness
CPT/HCPCS: 36415; 80053; 81003; 85027; 86593; 87389; 93005; 93010

== ENCOUNTER 2016-11-15 12:28 | Inpatient (IN) | payer OTHER ==
[2016-11-15 14:04] VITALS: BMI 23.7
--- NOTE | 2016-11-15 15:39 | HP ---
CIWA Score - CIWA Score Nausea/Vomitin-Int. Nausea w/Dry Heave (DIARRHEA) Muscle Tremors: 4-Moderate,w/Arms Extend Anxiety: 4-Mod. Anxious/Guarded Agitation: 4-Moderately Restless Paroxysmal Sweats: 1-Minimal Palms Moist Orientation: 0-Oriented Tacttile Disturbances: 3-Moderate Itch/Numb/Burn Auditory Disturbances: 0-None Visual Disturbances: 0-None Headache: 1-Very Mild CIWA-Ar Total Score: 21 Admission ROS S - HPI Chief Complaint: DETOX TX FOR ALCOHOL DEPENDENCE Allergies/Adverse Reactions: Allergies Allergy/AdvReac Type Severity Reaction Status Date / Time No Known Allergies Allergy Verified 11/15/16 14:24 History of Present Illness: 71 Y/O AA/MALE WITH A HX OF ALCOHOL DEPENDENCE SEEKING DETOX TX. Exam Limitations: No Limitations - Ebola screening Have you traveled outside of the country in the last 21 days: No Have you had contact with anyone from an Ebola affected area: No Have you been sick,other than usual withdrawal symptoms: No Do you have a fever: No - Review of Systems Constitutional: Loss of Appetite, Night Sweats, Changes in sleep EENT: reports: Blurred Vision, Tearing, Nose Congestion, Dental Problems ( MISSING TEETH), Other (HEALING BRUISES ON FOREHEAD STATING HE WOKE UP IN [facility] [place], [facility] BY [facility] ONE WEEK AGO AND WAS TOLD HE HAD SUN STROKE. PT STATES [place] WAS DRINKING [place] Respiratory: reports: SOB with Exertion Cardiac: reports: Lightheadedness, Chest Tightness GI: reports: Diarrhea, Nausea, Poor Appetite, Vomiting, Indigestion, Abdominal cramping : reports: Frequency Musculoskeletal: reports: Back Pain, Joint Pain, Muscle Pain, Other (PARTIAL AMPUTATIONS OF 2ND,3RD,4TH, AND 5TH TOES.) Integumentary: reports: Bruising (ON FOREHEAD) Neuro: reports: Headache, Tremors, Unsteady Gait, Dizziness Endocrine: reports: No Symptoms Reported Hematology: reports: No Symptoms Reported Psychiatric: reports: Orientated x3, Anxious Other Systems: Reviewed and Negative Patient History - Patient Medical History Hx Anemia: No Hx Asthma: No Hx Chronic Obstructive Pulmonary Disease (COPD): No Hx Cancer: No Hx Cardiac Disorders: No Hx Congestive Heart Failure: No Hx Hypertension: Yes (ON MED) Hx Hypercholesterolemia: Yes (ON MED) Hx Pacemaker: No HX Cerebrovascular Accident: No Hx Seizures: No Hx Dementia: No Hx Diabetes: No Hx Gastrointestinal Disorders: No Hx Liver Disease: Yes (HEP C) Hx Genitourinary Disorders: No Hx Sexually Transmitted Disorders: No Hx Renal Disease (ESRD): No Hx Thyroid Disease: No Hx Human Immunodeficiency Virus (HIV): No (NEGATIVE HX) Hx Hepatitis C: Yes (under the care of liver specialist) Hx Depression: No (DENIES--"I DON'T NEED TO SEE NO PSYCH") Hx Suicide Attempt: No (DENIES) Hx Bipolar Disorder: No Hx Schizophrenia: No - Patient Surgical History Past Surgical History: Yes Hx Neurologic Surgery: No Hx Cataract Extraction: No Hx Cardiac Surgery: No Hx Lung Surgery: No Hx Breast Surgery: No Hx Breast Biopsy: No Hx Abdominal Surgery: No Hx Appendectomy: No Hx Cholecystectomy: No Hx Genitourinary Surgery: No Hx Orthopedic Surgery: Yes (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,3RD,4TH,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.) Other Surgical History: incision and drainage of abscess left hand,PINS AND PLATE LEFT ELBOW Anesthesia Reaction: No - PPD History Previous Implant?: Yes Documented Results: Negative w/proof Implanted On Prior [facility] Admission?: Yes Date: 07/27/14 PPD to be Administered?: Yes - Reproductive History Patient is a Female of Child Bearing Age (11 -55 yrs old): No (MALE) - Smoking Cessation Smoking history: Current every day smoker Have you smoked in the past 12 months: Yes Aproximately how many cigarettes per day: 6 Cigars Per Day: 10 Hx Chewing Tobacco Use: No Initiated information on smoking cessation: Yes 'Breaking Loose' booklet given: 11/15/16 - Substance & Tx. History Hx Alcohol Use: Yes (VODKA) Hx Substance Use: No (DENIES) Substance Use Type: Alcohol Hx Substance Use Treatment: Yes (LAST AT [facility] 07/2016) - Substances Abused Alcohol Route: Oral Frequency: Daily Amount used: vodka(3-4 pints) Age of first use: 17 Date of Last Use: 11/14/16 Family Disease History - Family Disease History Family Disease History: Heart Disease: Father ( OF [place]), Sister ([place] X 1) Admission Physical Exam [facility] - Vital Signs Vital Signs: Vital Signs - 24 hr 11/15/16 13:59 Temperature 98.1 F Pulse Rate 110 H Respiratory 18 Rate Blood Pressure 147/76 - Physical General Appearance: Yes: Moderate Distress, Irritable, Anxious HEENTM: Yes: EOMI, Normocephalic, FRANC[place], Pharynx Normal, Nasal Congestion, Rhinorrhea, Other (HEALING BRUISES ON FOREHEAD) Respiratory: Yes: Chest Non-Tender, Lungs Clear, Normal Breath Sounds, No Respiratory Distress Neck: Yes: Supple, Trachea in good position Breast: Yes: Breast Exam Deferred Cardiology: Yes: Regular Rhythm, S1, S2, Tachycardia Abdominal: Yes: Normal Bowel Sounds, Non Tender, Soft Genitourinary: Yes: Other (N/C) Back: Yes: Within Normal Limits Musculoskeletal: Yes: full range of Motion, Gait Steady Extremities: Yes: Normal Range of Motion, Non-Tender, Other (S/P PARTIAL AMPUTATED LEFT FOOT 2ND,3RD,4TH AND 5TH TOES DUE TO DENT BITE AND GANGRENE.) 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, Fully Oriented, Alert Integumentary: Yes: Dry, Warm Lymphatic: Yes: Within Normal Limits - Diagnostic (1) Essential hypertension Current Visit: Yes Status: Chronic (2) Gastroesophageal reflux disease Current Visit: Yes Status: Chronic (3) Weight decreased Current Visit: Yes Status: Chronic (4) hypercholesterolemia Current Visit: Yes Status: Chronic (5) Nicotine dependence Current Visit: Yes Status: Acute Qualifiers: Substance use status: in withdrawal (6) Alcohol dependence with uncomplicated withdrawal Current Visit: Yes Status: Acute (7) Amputation, traumatic, toes Current Visit: Yes Status: Resolved Qualifiers: Laterality: right Cleared for Admission [facility] - Detox or Rehab [facility] Level of Care: Medically Managed Detox Regimen/Protocol: Librium [facility] Breath Alcohol Content Breath Alcohol Content: 0 Urine Drug Screen - Results Drug Screen Negative: No Urine Drug Screen Results: BZO-Benzodiazepines
[2016-11-15] MEDS ORDERED: MAG HYDROX/AL HYDROX/SIMETH 30 ML UNIT-DOSE CUP PO PRN (15:43)
[2016-11-15] MEDS ORDERED: P-EPHED 60MG/TRIPROLIDI 2.5MG TABLET PO PRN (15:43)
[2016-11-15] MEDS ORDERED: MAGNESIUM HYDROX 2400MG/30ML ORAL SUSPENSION 30 ML CUP PO PRN (15:43)
[2016-11-15] MEDS ORDERED: LOPERAMIDE HCL 2 MG CAPSULE PO PRN (15:43)
[2016-11-15] MEDS ORDERED: ACETAMINOPHEN 325 MG TABLET (FP) PO PRN (15:43)
[2016-11-15] MEDS ORDERED: IBUPROFEN 400 MG TABLET (FP) PO PRN (15:43)
[2016-11-15] MEDS ORDERED: MENTHOL/PHENOL 1 EACH UD MM PRN (15:43)
[2016-11-15] MEDS ORDERED: MAGNESIUM CITRATE 300 ML BOTTLE PO PRN (15:43)
[2016-11-15] MEDS ORDERED: guaiFENesin/D-METHORPHAN HB 10 ML UNIT-DOSE CUPS PO PRN (15:43)
[2016-11-15] MEDS ORDERED: diphenhydrAMINE HCL 50 MG CAPSULE PO PRN (15:43)
[2016-11-15] MEDS ORDERED: chlordiazePOXIDE HCL 25 MG CAPSULE PO PRN (15:43)
[2016-11-15] MEDS ORDERED: NICOTINE POLACRILEX 2 MG GUM BC PRN (15:43)
[2016-11-15] MEDS: ASPIRIN 81 MG CHEWABLE TABLETS PO SCH (17:26)
[2016-11-15] MEDS: NICOTINE 14 MG/24 HOURS TOPICAL PATCH TD SCH (17:26)
[2016-11-15] MEDS: amLODIPine BESYLATE 5 MG TABLET (FP) PO SCH (17:26)
[2016-11-15] MEDS: PANTOPRAZOLE 40 MG TABLET (FP) PO SCH (17:26)
[2016-11-15] MEDS: chlordiazePOXIDE HCL 25 MG CAPSULE PO SCH ×2 (17:26→22:31)
[2016-11-15] MEDS: TOLNAFTATE 1% CREAM 15 GM TUBE TP SCH (22:27)
[2016-11-15] MEDS: ATORVASTATIN CA 20 MG TABLET (FP) PO SCH (22:28)
[2016-11-15] MEDS: GABAPENTIN 100 MG CAPSULE (FP) PO SCH (22:28)
[2016-11-15] MEDS: THIAMINE HCL 100 MG TABLET (FP) PO SCH (22:28)
[2016-11-15] MEDS: BACITRACIN 0.9 GM PACKET TP SCH (22:28)
[2016-11-16 02:24] LABS: URINE APPEARANCE CLEAR; URINE BILIRUBIN NEGATIVE (NEGATIVE); URINE BLOOD NEGATIVE (NEGATIVE); URINE COLOR YELLOW; URINE GLUCOSE (UA) NEGATIVE (NEGATIVE); URINE KETONE NEGATIVE (NEGATIVE); URINE LEUK ESTERASE NEGATIVE (NEGATIVE); URINE NITRITE NEGATIVE (NEGATIVE); URINE PROTEIN NEGATIVE (NEGATIVE); URINE UROBILINOGEN NEGATIVE E.U./dl (0.2-1.0)
[2016-11-16] MEDS: GABAPENTIN 100 MG CAPSULE (FP) PO SCH (05:36)
[2016-11-16] MEDS: chlordiazePOXIDE HCL 25 MG CAPSULE PO SCH (06:05)
[2016-11-16 09:07] LABS: HIV 1 & 2 AB NEGATIVE; HIV 1 AGp24 NEGATIVE
[2016-11-16] MEDS ORDERED: diazePAM 5 MG TABLET PO PRN (09:08)
[2016-11-16] MEDS: PRENATAL VITAMINS W/ FOLIC ACID TABLET (FP) PO SCH (10:17)
[2016-11-16] MEDS: BACITRACIN 0.9 GM PACKET TP SCH ×2 (10:17→22:18)
[2016-11-16] MEDS: ASPIRIN 81 MG CHEWABLE TABLETS PO SCH (10:17)
[2016-11-16] MEDS: TOLNAFTATE 1% CREAM 15 GM TUBE TP SCH ×2 (10:17→22:17)
[2016-11-16] MEDS: PANTOPRAZOLE 40 MG TABLET (FP) PO SCH (10:17)
[2016-11-16] MEDS: amLODIPine BESYLATE 5 MG TABLET (FP) PO SCH (10:17)
[2016-11-16] MEDS: NICOTINE 14 MG/24 HOURS TOPICAL PATCH TD SCH (10:18)
[2016-11-16 10:25] LABS: MCH 32.1 pg (25.7-33.7); MCHC 33.4 g/dl (32.0-35.9); MEAN PLT VOLUME 9.4 fl (7.5-11.1); PLATELET COUNT 146 K/MM3 (134-434); RDW 16.3 % (11.9-15.9); WHITE BLOOD COUNT 3.2 K/mm3 (4.0-10.0)
[2016-11-16 11:03] LABS: ALBUMIN 3.9 g/dl (3.4-5.0); ALK PHOS 75 U/L (45-117); ANION GAP 9 (8-16); BILIRUBIN,TOTAL 0.8 mg/dL (0.2-1.0); CALCIUM 9.3 mg/dL (8.5-10.1); CO2 28 mmol/L (21-32); CREATININE 0.8 mg/dL (0.7-1.3); GLUCOSE,RANDOM 104 mg/dL (74-106); SGOT/AST 108 U/L (15-37); SGPT/ALT 158 U/L (12-78); TOT PROT 7.5 g/dl (6.4-8.2)
[2016-11-16] MEDS: diazePAM 5 MG TABLET PO SCH ×2 (13:01→22:18)
[2016-11-16] MEDS: GABAPENTIN 300 MG CAPSULE (FP) PO SCH ×2 (13:02→22:18)
--- NOTE | 2016-11-16 13:39 | PN ---
[facility] CIWA - CIWA Score Nausea/Vomitin-No Nausea/No Vomiting Muscle Tremors: 4-Moderate,w/Arms Extend Anxiety: 2 Agitation: 1-Slight > Activity Paroxysmal Sweats: 3 Orientation: 0-Oriented Tacttile Disturbances: 1-Very Mild Itch/Numbness Auditory Disturbances: 1-Very Mild Visual Disturbances: 2-Mild Sensitivity Headache: 3-Moderate CIWA-Ar Total Score: 17 [facility] Progress Note (SOAP) Subjective: Tremors, Diarrhea, H/A, Sweating. Objective: PT. A & O X 3. NO ACUTE DISTRESS. PT. DENIES CHEST PAIN. 11/16/16 13:37 Vital Signs Temperature 97.0 F L 11/16/16 13:34 Pulse Rate 90 11/16/16 13:34 Respiratory Rate 20 11/16/16 13:34 Blood Pressure 150/87 11/16/16 13:34 O2 Sat by Pulse Oximetry (%) Laboratory Tests 11/15/16 11/16/16 11/16/16 15:00 00:03 06:00 WBC 3.2 L RBC 4.15 Hgb 13.3 D Hct 39.8 MCV 96.0 MCHC 33.4 RDW 16.3 H Plt Count 146 D MPV 9.4 Sodium Potassium Chloride Carbon Dioxide Anion Gap BUN Creatinine Creat Clearance w eGFR Random Glucose Calcium Total Bilirubin AST ALT Alkaline Phosphatase Total Protein Albumin Urine Color Yellow Urine Appearance Clear Urine pH 7.0 D Ur Specific Jud 1.015 Urine Protein Negative Urine Glucose (UA) Negative Urine Ketones Negative Urine Blood Negative Urine Nitrite Negative Urine Bilirubin Negative Urine Urobilinogen Negative Ur Leukocyte Esterase Negative RPR Titer HIV 1&2 Antibody Screen Negative HIV P24 Antigen Negative 11/16/16 11/16/16 06:00 06:00 WBC RBC Hgb Hct MCV MCHC RDW Plt Count MPV Sodium 137 Potassium 3.6 Chloride 100 Carbon Dioxide 28 Anion Gap 9 BUN 19 H Creatinine 0.8 Creat Clearance w eGFR > 60 Random Glucose 104 Calcium 9.3 Total Bilirubin 0.8 D AST 108 H D ALT 158 H D Alkaline Phosphatase 75 Total Protein 7.5 Albumin 3.9 Urine Color Urine Appearance Urine pH Ur Specific Jud Urine Protein Urine Glucose (UA) Urine Ketones Urine Blood Urine Nitrite Urine Bilirubin Urine Urobilinogen Ur Leukocyte Esterase RPR Titer Nonreactive HIV 1&2 Antibody Screen HIV P24 Antigen LABS NOTED. Assessment: 11/16/16 13:37 WITHDRAWAL SYMPTOMS. Plan: CONTINUE DETOX. REPEAT AST AND ALT ON 11/18/2016 FOR ELEVATED ADMISSION LEVELS.
--- NOTE | 2016-11-16 15:53 | EKG ---
Test Reason : Blood Pressure : / mmHG Vent. Rate : 077 BPM Atrial Rate : 077 BPM P-R Int : 146 ms QRS Dur : 082 ms QT Int : 368 ms P-R-T Axes : 071 022 040 degrees QTc Int : 416 ms NORMAL SINUS RHYTHM WITH SINUS ARRHYTHMIA NORMAL ECG WHEN COMPARED WITH ECG OF 17-AUG-2016 21:55, CRITERIA FOR SEPTAL INFARCT ARE NO LONGER PRESENT Confirmed by CHIP OTERO MD ([id number]) on 11/16/2016 3:52:48 PM Referred By: Confirmed By:CHIP OTERO MD
[2016-11-16] MEDS ORDERED: chlordiazePOXIDE HCL 25 MG CAPSULE PO SCH (17:00)
[2016-11-16] MEDS: THIAMINE HCL 100 MG TABLET (FP) PO SCH (22:18)
[2016-11-16] MEDS: ATORVASTATIN CA 20 MG TABLET (FP) PO SCH (22:18)
[2016-11-17] MEDS: GABAPENTIN 300 MG CAPSULE (FP) PO SCH ×3 (05:32→22:20)
[2016-11-17] MEDS: diazePAM 5 MG TABLET PO SCH ×2 (10:19→22:20)
[2016-11-17] MEDS: PRENATAL VITAMINS W/ FOLIC ACID TABLET (FP) PO SCH (10:19)
[2016-11-17] MEDS: ASPIRIN 81 MG CHEWABLE TABLETS PO SCH (10:19)
[2016-11-17] MEDS: PANTOPRAZOLE 40 MG TABLET (FP) PO SCH (10:19)
[2016-11-17] MEDS: BACITRACIN 0.9 GM PACKET TP SCH ×2 (10:19→22:20)
[2016-11-17] MEDS: TOLNAFTATE 1% CREAM 15 GM TUBE TP SCH ×2 (10:19→22:24)
[2016-11-17] MEDS: amLODIPine BESYLATE 5 MG TABLET (FP) PO SCH (10:20)
[2016-11-17] MEDS: NICOTINE 14 MG/24 HOURS TOPICAL PATCH TD SCH (10:20)
--- NOTE | 2016-11-17 12:31 | PN ---
S CIWA - CIWA Score Nausea/Vomitin Muscle Tremors: 4-Moderate,w/Arms Extend Anxiety: 2 Agitation: 2 Paroxysmal Sweats: 2 Orientation: 0-Oriented Tacttile Disturbances: 2-Mild Itch/Numbness/Burn Auditory Disturbances: 2-Mild Harshness/Frighten Visual Disturbances: 0-None Headache: 0-None Present CIWA-Ar Total Score: 16 BHS Progress Note (SOAP) Subjective: Tremors, Lower Back Ache, Stomach Cramping, Body Aches. Pt. reports that he is tolerating Valium Detox regimen well. Objective: PT. A & O X 3, OBSERVED AMBULATING ON UNIT. NO ACUTE DISTRESS. 11/17/16 12:26 Vital Signs Temperature 95.5 F L 11/17/16 09:48 Pulse Rate 94 H 11/17/16 09:48 Respiratory Rate 18 11/17/16 09:48 Blood Pressure 131/79 11/17/16 09:48 O2 Sat by Pulse Oximetry (%) Laboratory Tests 11/15/16 11/16/16 11/16/16 15:00 00:03 06:00 WBC 3.2 L RBC 4.15 Hgb 13.3 D Hct 39.8 MCV 96.0 MCHC 33.4 RDW 16.3 H Plt Count 146 D MPV 9.4 Sodium Potassium Chloride Carbon Dioxide Anion Gap BUN Creatinine Creat Clearance w eGFR Random Glucose Calcium Total Bilirubin AST ALT Alkaline Phosphatase Total Protein Albumin Urine Color Yellow Urine Appearance Clear Urine pH 7.0 D Ur Specific [place] 1.015 Urine Protein Negative Urine Glucose (UA) Negative Urine Ketones Negative Urine Blood Negative Urine Nitrite Negative Urine Bilirubin Negative Urine Urobilinogen Negative Ur Leukocyte Esterase Negative RPR Titer HIV 1&2 Antibody Screen Negative HIV P24 Antigen Negative 11/16/16 11/16/16 06:00 06:00 WBC RBC Hgb Hct MCV MCHC RDW Plt Count MPV Sodium 137 Potassium 3.6 Chloride 100 Carbon Dioxide 28 Anion Gap 9 BUN 19 H Creatinine 0.8 Creat Clearance w eGFR > 60 Random Glucose 104 Calcium 9.3 Total Bilirubin 0.8 D AST 108 H D ALT 158 H D Alkaline Phosphatase 75 Total Protein 7.5 Albumin 3.9 Urine Color Urine Appearance Urine pH Ur Specific [place] Urine Protein Urine Glucose (UA) Urine Ketones Urine Blood Urine Nitrite Urine Bilirubin Urine Urobilinogen Ur Leukocyte Esterase RPR Titer Nonreactive HIV 1&2 Antibody Screen HIV P24 Antigen LABS NOTED. Assessment: 11/17/16 12:29 WITHDRAWAL SYMPTOMS. Plan: CONTINUE DETOX.
[2016-11-17] MEDS ORDERED: chlordiazePOXIDE 5 MG CAPSULE PO SCH (17:00)
[2016-11-17] MEDS: ATORVASTATIN CA 20 MG TABLET (FP) PO SCH (22:21)
[2016-11-17] MEDS: THIAMINE HCL 100 MG TABLET (FP) PO SCH (22:30)
[2016-11-18] MEDS: GABAPENTIN 300 MG CAPSULE (FP) PO SCH ×3 (05:19→22:12)
[2016-11-18] MEDS: TOLNAFTATE 1% CREAM 15 GM TUBE TP SCH ×2 (10:18→22:57)
[2016-11-18] MEDS: NICOTINE 14 MG/24 HOURS TOPICAL PATCH TD SCH (10:18)
[2016-11-18] MEDS: ASPIRIN 81 MG CHEWABLE TABLETS PO SCH (10:18)
[2016-11-18] MEDS: PANTOPRAZOLE 40 MG TABLET (FP) PO SCH (10:18)
[2016-11-18] MEDS: BACITRACIN 0.9 GM PACKET TP SCH ×2 (10:18→22:11)
[2016-11-18] MEDS: amLODIPine BESYLATE 5 MG TABLET (FP) PO SCH (10:18)
[2016-11-18] MEDS: PRENATAL VITAMINS W/ FOLIC ACID TABLET (FP) PO SCH (10:18)
[2016-11-18] MEDS: diazePAM 5 MG TABLET PO SCH ×2 (10:19→22:12)
--- NOTE | 2016-11-18 14:00 | PN ---
[facility] Progress Note (SOAP) Subjective: Tremors, H/A, Body Aches. Objective: PT. A & O X 3, OBSERVED AMBULATING ON UNIT. NO ACUTE DISTRESS. PATIENT DENIES CHEST PAIN. 11/18/16 13:57 Vital Signs Temperature 97.4 F L 11/18/16 13:47 Pulse Rate 81 11/18/16 13:47 Respiratory Rate 18 11/18/16 13:47 Blood Pressure 123/77 11/18/16 13:47 O2 Sat by Pulse Oximetry (%) Laboratory Tests 11/15/16 11/16/16 11/16/16 15:00 00:03 06:00 WBC 3.2 L RBC 4.15 Hgb 13.3 D Hct 39.8 MCV 96.0 MCHC 33.4 RDW 16.3 H Plt Count 146 D MPV 9.4 Sodium Potassium Chloride Carbon Dioxide Anion Gap BUN Creatinine Creat Clearance w eGFR Random Glucose Calcium Total Bilirubin AST ALT Alkaline Phosphatase Total Protein Albumin Urine Color Yellow Urine Appearance Clear Urine pH 7.0 D Ur Specific [place] 1.015 Urine Protein Negative Urine Glucose (UA) Negative Urine Ketones Negative Urine Blood Negative Urine Nitrite Negative Urine Bilirubin Negative Urine Urobilinogen Negative Ur Leukocyte Esterase Negative RPR Titer HIV 1&2 Antibody Screen Negative HIV P24 Antigen Negative 11/16/16 11/16/16 11/18/16 06:00 06:00 08:00 WBC RBC Hgb Hct MCV MCHC RDW Plt Count MPV Sodium 137 Potassium 3.6 Chloride 100 Carbon Dioxide 28 Anion Gap 9 BUN 19 H Creatinine 0.8 Creat Clearance w eGFR > 60 Random Glucose 104 Calcium 9.3 Total Bilirubin 0.8 D AST 108 H D 49 H D ALT 158 H D Alkaline Phosphatase 75 Total Protein 7.5 Albumin 3.9 Urine Color Urine Appearance Urine pH Ur Specific [place] Urine Protein Urine Glucose (UA) Urine Ketones Urine Blood Urine Nitrite Urine Bilirubin Urine Urobilinogen Ur Leukocyte Esterase RPR Titer Nonreactive HIV 1&2 Antibody Screen HIV P24 Antigen 11/18/16 08:00 WBC RBC Hgb Hct MCV MCHC RDW Plt Count MPV Sodium Potassium Chloride Carbon Dioxide Anion Gap BUN Creatinine Creat Clearance w eGFR Random Glucose Calcium Total Bilirubin AST ALT 89 H D Alkaline Phosphatase Total Protein Albumin Urine Color Urine Appearance Urine pH Ur Specific [place] Urine Protein Urine Glucose (UA) Urine Ketones Urine Blood Urine Nitrite Urine Bilirubin Urine Urobilinogen Ur Leukocyte Esterase RPR Titer HIV 1&2 Antibody Screen HIV P24 Antigen LABS NOTED. RESULTS OF REPEAT AST AND ALT FROM 11/18/2016 NOTED. 11/18/16 13:59 Assessment: 11/18/16 13:58 WITHDRAWAL SYMPTOMS. Plan: CONTINUE DETOX. ADVISED PATIENT TO FOLLOW-UP WITH CAR REPAIRER HELPER AFTER DISCHARGE FROM DETOX FOR GENERAL MEDICAL ASSESSMENT AND FOR ELEVATED ADMISSION AST AND ALT LEVELS. COPY OF ADMISSION LAB VALUES GIVEN TO PATIENT.
[2016-11-18] MEDS ORDERED: chlordiazePOXIDE HCL 10 MG CAPSULE PO SCH (17:00)
[2016-11-18] MEDS: THIAMINE HCL 100 MG TABLET (FP) PO SCH (22:12)
[2016-11-18] MEDS: ATORVASTATIN CA 20 MG TABLET (FP) PO SCH (22:12)
[2016-11-19] MEDS: GABAPENTIN 300 MG CAPSULE (FP) PO SCH ×3 (05:52→22:14)
[2016-11-19] MEDS ORDERED: diazePAM 5 MG TABLET PO SCH (10:00)
[2016-11-19] MEDS: NICOTINE 14 MG/24 HOURS TOPICAL PATCH TD SCH ×2 (10:30→11:04)
[2016-11-19] MEDS: ASPIRIN 81 MG CHEWABLE TABLETS PO SCH (10:31)
[2016-11-19] MEDS: amLODIPine BESYLATE 5 MG TABLET (FP) PO SCH (10:31)
[2016-11-19] MEDS: PRENATAL VITAMINS W/ FOLIC ACID TABLET (FP) PO SCH (10:31)
[2016-11-19] MEDS: BACITRACIN 0.9 GM PACKET TP SCH ×2 (10:31→22:14)
[2016-11-19] MEDS: PANTOPRAZOLE 40 MG TABLET (FP) PO SCH (10:31)
[2016-11-19] MEDS: TOLNAFTATE 1% CREAM 15 GM TUBE TP SCH ×2 (10:33→22:15)
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
[2016-11-19] MEDS: ATORVASTATIN CA 20 MG TABLET (FP) PO SCH (22:14)
[2016-11-19] MEDS: THIAMINE HCL 100 MG TABLET (FP) PO SCH (22:14)
[2016-11-20] MEDS: GABAPENTIN 300 MG CAPSULE (FP) PO SCH (05:33)
[2016-11-20 08:50] VITALS: BP 126/87; PULSE 90; TEMP 96
[2016-11-20] MEDS: PRENATAL VITAMINS W/ FOLIC ACID TABLET (FP) PO SCH (10:09)
[2016-11-20] MEDS: PANTOPRAZOLE 40 MG TABLET (FP) PO SCH (10:09)
[2016-11-20] MEDS: BACITRACIN 0.9 GM PACKET TP SCH (10:09)
[2016-11-20] MEDS: ASPIRIN 81 MG CHEWABLE TABLETS PO SCH (10:09)
[2016-11-20] MEDS: amLODIPine BESYLATE 5 MG TABLET (FP) PO SCH (10:09)
[2016-11-20] MEDS: TOLNAFTATE 1% CREAM 15 GM TUBE TP SCH (10:10)
[2016-11-20] MEDS: NICOTINE 14 MG/24 HOURS TOPICAL PATCH TD SCH (10:10)
--- NOTE | 2016-11-20 12:49 | DS ---
[facility] Detox Discharge Summary Admission Date: 11/15/16 Discharge Date: 11/20/16 - History Present History: Alcohol Dependence Additional Comments: ADVISED PATIENT TO FOLLOW-UP WITH METALLURGICAL ANALYST / MEDICAL PROVIDER AT [facility] PER ARRANGEMENT. Pertinent Past History: Hypercholesterolemia, HTN, GERD, History of Amputation of toes on Right foot. - Physical Exam Results Vital Signs: Vital Signs Temperature 96.0 F L 11/20/16 08:49 Pulse Rate 90 11/20/16 08:49 Respiratory Rate 16 11/20/16 08:49 Blood Pressure 126/87 11/20/16 08:49 O2 Sat by Pulse Oximetry (%) Pertinent Admission Physical Exam Findings: WITHDRAWAL SYMPTOMS. Laboratory Tests 11/15/16 11/16/16 11/16/16 15:00 00:03 06:00 WBC 3.2 L RBC 4.15 Hgb 13.3 D Hct 39.8 MCV 96.0 MCHC 33.4 RDW 16.3 H Plt Count 146 D MPV 9.4 Sodium Potassium Chloride Carbon Dioxide Anion Gap BUN Creatinine Creat Clearance w eGFR Random Glucose Calcium Total Bilirubin AST ALT Alkaline Phosphatase Total Protein Albumin Urine Color Yellow Urine Appearance Clear Urine pH 7.0 D Ur Specific [place] 1.015 Urine Protein Negative Urine Glucose (UA) Negative Urine Ketones Negative Urine Blood Negative Urine Nitrite Negative Urine Bilirubin Negative Urine Urobilinogen Negative Ur Leukocyte Esterase Negative RPR Titer HIV 1&2 Antibody Screen Negative HIV P24 Antigen Negative 11/16/16 11/16/16 11/18/16 06:00 06:00 08:00 WBC RBC Hgb Hct MCV MCHC RDW Plt Count MPV Sodium 137 Potassium 3.6 Chloride 100 Carbon Dioxide 28 Anion Gap 9 BUN 19 H Creatinine 0.8 Creat Clearance w eGFR > 60 Random Glucose 104 Calcium 9.3 Total Bilirubin 0.8 D AST 108 H D 49 H D ALT 158 H D Alkaline Phosphatase 75 Total Protein 7.5 Albumin 3.9 Urine Color Urine Appearance Urine pH Ur Specific [place] Urine Protein Urine Glucose (UA) Urine Ketones Urine Blood Urine Nitrite Urine Bilirubin Urine Urobilinogen Ur Leukocyte Esterase RPR Titer Nonreactive HIV 1&2 Antibody Screen HIV P24 Antigen 11/18/16 08:00 WBC RBC Hgb Hct MCV MCHC RDW Plt Count MPV Sodium Potassium Chloride Carbon Dioxide Anion Gap BUN Creatinine Creat Clearance w eGFR Random Glucose Calcium Total Bilirubin AST ALT 89 H D Alkaline Phosphatase Total Protein Albumin Urine Color Urine Appearance Urine pH Ur Specific [place] Urine Protein Urine Glucose (UA) Urine Ketones Urine Blood Urine Nitrite Urine Bilirubin Urine Urobilinogen Ur Leukocyte Esterase RPR Titer HIV 1&2 Antibody Screen HIV P24 Antigen LABS NOTED. - Treatment Hospital Course: Detox Protocol Followed, Detoxed Safely, Responded well, Discharged Condition Good, Rehab Referral Accepted Patient has Accepted a Rehab Referral to: [facility]. - Medication Discharge Medications: Ambulatory Orders Gabapentin [Neurontin -] 600 mg PO TID 08/17/16 Amlodipine Besylate [Norvasc -] 5 mg PO DAILY #30 tablet 09/06/16 Aspirin [ASA -] 81 mg PO DAILY #30 tab 09/06/16 Pantoprazole Sodium [Protonix -] 40 mg PO DAILY #30 tab 09/06/16 Simvastatin [Zocor -] 40 mg PO HS #30 tablet 09/06/16 - Diagnosis (1) Alcohol dependence with uncomplicated withdrawal Status: Acute (2) Nicotine dependence Status: Chronic Qualifiers: Nicotine product type: cigarettes Substance use status: in withdrawal Qualified Code(s): F17.213 - Nicotine dependence, cigarettes, with withdrawal (3) Essential hypertension Status: Chronic (4) Gastroesophageal reflux disease Status: Chronic (5) hypercholesterolemia Status: Chronic (6) Weight decreased Status: Chronic (7) Amputation, traumatic, toes Status: Resolved Qualifiers: Encounter type: sequela Laterality: right Qualified Code(s): S98.131S - Complete traumatic amputation of one right lesser toe, sequela - AMA Did Patient Leave Against Medical Advice: No
--- NOTE | 2016-11-20 16:18 | PN ---
[facility] Progress Note Note: After discharge from Detox but prior to being taken to [facility], patient reports that he was informed by [facility] Line Erector, via telephone, that he needed to bring prescription medications (that he was currently taking on a daily basis prior to admission for Detox) with him for the admission there at the [facility]. Prescriptions for 30-Day Supply of Amlodipine Besylate (5 mg PO Daily), Lipitor (20 mg PO HS), ASA (81 mg PO Daily), and Protonix (40 mg PO Daily) sent to [facility] to be filled. Patient escorted to [facility] to product picker prescriptions. Patient advised to follow-up with Primary Care Medical Provider for General Medical Assessment as soon as possible. Patient verbalized understanding of recommendation and notes that he does not currently have a Primary Care medical Provider, but will contact his Health Insurance Plan to find one to go to for follow-up. After filling prescriptions, patient contacted [facility] transportation service to pick him up to be taken to [facility]. Iris Pringle NP
== END 2016-11-20 10:20 | disposition home or self-care (01) | DRG 897 ==
LOC: YASAS 12:28 → Y3N 15:03
PROVIDERS: ADMIT Internal Medicine; ATTEND Internal Medicine
PROC: HZ2ZZZZ Detoxification Services for Substance Abuse Treatment (ICD-10-PCS; principal; 2016-11-15)
DX: F10.230 Alcohol dependence with withdrawal, uncomplicated (principal); F17.213 Nicotine dependence, cigarettes, with withdrawal; I10 Essential (primary) hypertension; K21.9 Gastro-esophageal reflux disease without esophagitis; E78.00 Pure hypercholesterolemia, unspecified; B18.2 Chronic viral hepatitis C; R00.0 Tachycardia, unspecified; Z89.422 Acquired absence of other left toe(s); Z87.898 Personal history of other specified conditions; Z59.0 Homelessness
CPT/HCPCS: 36415; 80053; 81003; 84450; 84460; 85027; 86593; 87389; 93005; 93010

== ENCOUNTER 2017-02-01 15:13 | Inpatient (IN) | payer OTHER ==
[2017-02-01 18:03] VITALS: BMI 23.3
--- NOTE | 2017-02-01 19:20 | HP ---
Admission ROS [facility] - [facility] Chief Complaint: I WANT TO GO TO REHAB Allergies/Adverse Reactions: Allergies Allergy/AdvReac Type Severity Reaction Status Date / Time No Known Allergies Allergy Verified 02/01/17 18:22 History of Present Illness: 71 YEARS OLD MALE WITH LONG HISTORY OF ALCOHOL NICOTINE DEPENDENCE HAS HYPERTENSION GERD HYPERLIPIDEMEA AND MARYBETH LOSS IS ADMITTED TO REHAB Exam Limitations: No Limitations - Ebola screening Have you traveled outside of the country in the last 21 days: No Have you had contact with anyone from an Ebola affected area: No Have you been sick,other than usual withdrawal symptoms: No Do you have a fever: No - Review of Systems Constitutional: Loss of Appetite, Unintentional Wgt. Loss, Unexplained wgt Loss EENT: reports: Dental Problems (TEETH MISSING) Respiratory: reports: No Symptoms reported Cardiac: reports: No Symptoms Reported GI: reports: Indigestion : reports: No Symptoms Reported Musculoskeletal: reports: Joint Pain (LEFT FOOT) Integumentary: reports: No Symptoms Reported Neuro: reports: No Symptoms reported Endocrine: reports: No Symptoms Reported Hematology: reports: No Symptoms Reported Psychiatric: reports: No Sypmtoms Reported, Judgement Intact, Mood/Affect Appropiate, Orientated x3 Other Systems: Reviewed and Negative Patient History - Patient Medical History Hx Anemia: No Hx Asthma: No Hx Chronic Obstructive Pulmonary Disease (COPD): No Hx Cancer: No Hx Cardiac Disorders: No Hx Congestive Heart Failure: No Hx Hypertension: Yes (ON MED) Hx Hypercholesterolemia: Yes (ON MED) Hx Pacemaker: No HX Cerebrovascular Accident: No Hx Seizures: No Hx Dementia: No Hx Diabetes: No Hx Gastrointestinal Disorders: No Hx Liver Disease: Yes (HEP C) Hx Genitourinary Disorders: No Hx Sexually Transmitted Disorders: No Hx Renal Disease (ESRD): No Hx Thyroid Disease: No Hx Human Immunodeficiency Virus (HIV): No (NEGATIVE HX) Hx Hepatitis C: Yes (under the care of liver specialist) Hx Depression: No (DENIES--"I DON'T NEED TO SEE NO PSYCH") Hx Suicide Attempt: No (DENIES) Hx Bipolar Disorder: No Hx Schizophrenia: No - Patient Surgical History Past Surgical History: Yes Hx Neurologic Surgery: No Hx Cataract Extraction: No Hx Cardiac Surgery: No Hx Lung Surgery: No Hx Breast Surgery: No Hx Breast Biopsy: No Hx Abdominal Surgery: No Hx Appendectomy: No Hx Cholecystectomy: No Hx Genitourinary Surgery: No Hx Orthopedic Surgery: Yes (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,3RD,4TH,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.) Hx Hysterectomy: Yes (fx left elbow in 1975) Other Surgical History: incision and drainage of abscess left hand,PINS AND PLATE LEFT ELBOW Anesthesia Reaction: No - PPD History Previous Implant?: Yes Documented Results: Negative w/o proof Implanted On Prior [facility] Admission?: Yes Date: 07/27/14 PPD to be Administered?: Yes - Smoking Cessation Smoking history: Current every day smoker Have you smoked in the past 12 months: Yes Aproximately how many cigarettes per day: 6 Cigars Per Day: 0 Hx Chewing Tobacco Use: No Initiated information on smoking cessation: Yes 'Breaking Loose' booklet given: 02/01/17 - Substance & Tx. History Hx Alcohol Use: Yes Hx Substance Use: No Substance Use Type: Alcohol Hx Substance Use Treatment: Yes (11/15-11/20/16 [facility] - Substances Abused Alcohol Route: Oral Frequency: 3-6 times per week Amount used: QUART VOLKA Age of first use: 17 Date of Last Use: 01/21/17 Family Disease History - Family Disease History Family Disease History: Heart Disease: Father ( OF [place]), Sister ([place] X 1), Other: Mother () Admission Physical Exam S - Vital Signs Vital Signs: Vital Signs - 24 hr 02/01/17 17:59 Temperature 98.5 F Pulse Rate 83 Respiratory 20 Rate Blood Pressure 140/80 - Physical General Appearance: Yes: No Apparent Distress, Appropriately Dressed, Thin HEENTM: Yes: Hearing grossly Normal, Normal ENT Inspection, Normocephalic, Normal Voice Respiratory: Yes: Chest Non-Tender, Lungs Clear, Normal Breath Sounds, No Respiratory Distress, No Accessory Muscle Use Neck: Yes: Supple, Trachea in good position Breast: Yes: Breasts Symetrical Cardiology: Yes: Regular Rhythm, Regular Rate, S1, S2 Abdominal: Yes: Normal Bowel Sounds, Non Tender, Soft Genitourinary: Yes: Within Normal Limits Back: Yes: Normal Inspection Musculoskeletal: Yes: full range of Motion, Gait Steady, Muscle Pain (LEFT FOOT) Extremities: Yes: Non-Tender, Amputation (LEFT 4 TOES) Neurological: Yes: Fully Oriented, Alert, Normal Mood/Affect, Normal Response Integumentary: Yes: Warm Lymphatic: Yes: Within Normal Limits - Diagnostic (1) Alcohol dependence with uncomplicated withdrawal Current Visit: Yes Status: Acute (2) Essential hypertension Current Visit: Yes Status: Chronic (3) Gastroesophageal reflux disease Current Visit: Yes Status: Chronic (4) Nicotine dependence Current Visit: Yes Status: Acute Qualifiers: Nicotine product type: cigarettes Substance use status: in withdrawal Qualified Code(s): F17.213 - Nicotine dependence, cigarettes, with withdrawal (5) Weight decreased Current Visit: Yes Status: Acute (6) hypercholesterolemia Current Visit: Yes Status: Chronic (7) Constipation Current Visit: Yes Status: Chronic Qualifiers: Constipation type: slow transit constipation Qualified Code(s): K59.01 - Slow transit constipation Cleared for Admission [facility] - Detox or Rehab [facility] Level of Care: Observation Bed Detox Regimen/Protocol: Not Applicable Claeared for Rehab Admission: Yes [facility] Breath Alcohol Content Breath Alcohol Content: 0 Urine Drug Screen - Results Drug Screen Negative: No Urine Drug Screen Results: BZO-Benzodiazepines
[2017-02-01] MEDS ORDERED: MAGNESIUM CITRATE 300 ML BOTTLE PO PRN (19:37)
[2017-02-01] MEDS ORDERED: MENTHOL/PHENOL 1 EACH UD MM PRN (19:37)
[2017-02-01] MEDS ORDERED: guaiFENesin/D-METHORPHAN HB 10 ML UNIT-DOSE CUPS PO PRN (19:37)
[2017-02-01] MEDS ORDERED: LOPERAMIDE HCL 2 MG CAPSULE PO PRN (19:37)
[2017-02-01] MEDS ORDERED: NICOTINE POLACRILEX 2 MG GUM BUC PRN (19:37)
[2017-02-01] MEDS ORDERED: P-EPHED 60MG/TRIPROLIDI 2.5MG TABLET PO PRN (19:37)
[2017-02-01] MEDS ORDERED: hydrOXYzine PAMOATE 50 MG CAPSULE (FP) PO PRN (19:37)
[2017-02-01] MEDS ORDERED: MAGNESIUM HYDROX 2400MG/30ML ORAL SUSPENSION 30 ML CUP PO PRN (19:37)
[2017-02-01] MEDS ORDERED: ACETAMINOPHEN 325 MG TABLET (FP) PO PRN (19:37)
[2017-02-01] MEDS ORDERED: MAG HYDROX/AL HYDROX/SIMETH 30 ML UNIT-DOSE CUP PO PRN (19:37)
[2017-02-01] MEDS ORDERED: DOCUSATE SODIUM 100 MG CAPSULE (FP) PO PRN (19:42)
[2017-02-01] MEDS ORDERED: SENNOSIDES 8.6MG TABLET (FP) PO PRN (19:42)
[2017-02-01] MEDS: ATORVASTATIN CA 20 MG TABLET (FP) PO SCH (22:18)
[2017-02-01] MEDS: THIAMINE HCL 100 MG TABLET (FP) PO SCH (22:18)
[2017-02-01] MEDS: GABAPENTIN 300 MG CAPSULE (FP) PO SCH (22:18)
[2017-02-01] MEDS: RANITIDINE HCL 150 MG TABLET (FP) PO SCH (22:18)
--- NOTE | 2017-02-02 06:50 | HP ---
Psychiatrist Admission - Data Date of interview: 02/02/17 Admission source: 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 Denies being on parole/probation currently Vital Signs: Vital Signs - 24 hr 02/01/17 02/01/17 02/02/17 17:59 21:19 00:42 Temperature 98.5 F 98.4 F Pulse Rate 83 89 Respiratory 20 18 18 Rate Blood Pressure 140/80 141/96 02/02/17 02/02/17 03:30 06:40 Temperature 97.0 F L Pulse Rate 77 Respiratory 18 18 Rate Blood Pressure 128/90 Allergies/Adverse Reactions: Allergies Allergy/AdvReac Type Severity Reaction Status Date / Time No Known Allergies Allergy Verified 02/01/17 18:22 Date of last physical exam: 02/01/17 Concur with the findings of this exam: Yes - Substance Abuse/Tx History Hx Alcohol Use: Yes Hx Substance Use: No Substance Use Type: Alcohol (Started drinking alcohol at age 17, consumes a quart of vodka 3-6 times weekly. Last drink on 01/21/17) Hx Substance Use Treatment: Yes (3 previous inpt detox & 2 inpt rehab @ [facility]) - Admission Criteria Previous failed treatment: No Poor recovery environment: Yes Comorbidities: Yes Lacks judgement: Yes Mental Status Exam - Mental Status Exam Alert and Oriented to: Time, Place, Person Cognitive Function: Fair Patient Appearance: Well Groomed Mood: Hopeful, Euthymic Affect: Appropriate Patient Behavior: Cooperative Speech Pattern: Clear Voice Loudness: Normal Thought Process: Intact Thought Disorder: Not Present Hallucinations: Denies Suicidal Ideation: Denies Homicidal Ideation: Denies Insight/Judgement: Fair Sleep: Well Appetite: Good Muscle strength/Tone: Normal Gait/Station: Normal Psychiatric Findings - Problem List ([place] 1, 2,3) (1) Alcohol dependence Current Visit: Yes Status: Acute (2) Nicotine dependence Current Visit: Yes Status: Acute Qualifiers: Nicotine product type: cigarettes Substance use status: in withdrawal Qualified Code(s): F17.213 - Nicotine dependence, cigarettes, with withdrawal (3) Essential hypertension Current Visit: Yes Status: Chronic (4) hypercholesterolemia Current Visit: Yes Status: Chronic (5) Gastroesophageal reflux disease Current Visit: Yes Status: Chronic (6) s/p surgery for fx left elbow Current Visit: No Status: Active (7) Hepatitis C Current Visit: Yes Status: Acute - Initial Treatment Plan Initial Treatment Plan: Monitor progress
[2017-02-02] MEDS: GABAPENTIN 300 MG CAPSULE (FP) PO SCH ×3 (06:52→21:07)
[2017-02-02] MEDS: ASPIRIN 81 MG CHEWABLE TABLETS PO SCH (09:46)
[2017-02-02] MEDS: PRENATAL VITAMINS W/ FOLIC ACID TABLET (FP) PO SCH (09:46)
[2017-02-02] MEDS: amLODIPine BESYLATE 5 MG TABLET (FP) PO SCH (09:46)
[2017-02-02] MEDS: RANITIDINE HCL 150 MG TABLET (FP) PO SCH ×2 (09:46→21:07)
[2017-02-02] MEDS: NICOTINE 14 MG/24 HOURS TOPICAL PATCH TD SCH (09:47)
[2017-02-02 09:51] LABS: MCH 31.7 pg (25.7-33.7); MCHC 32.7 g/dl (32.0-35.9); MEAN PLT VOLUME 9.1 fl (7.5-11.1); PLATELET COUNT 223 K/MM3 (134-434); RDW 16.5 % (11.9-15.9); WHITE BLOOD COUNT 3.4 K/mm3 (4.0-10.0)
[2017-02-02 11:01] LABS: ALBUMIN 3.6 g/dl (3.4-5.0); ALK PHOS 67 U/L (45-117); ANION GAP 9 (8-16); BILIRUBIN,TOTAL 0.3 mg/dL (0.2-1.0); CALCIUM 9.2 mg/dL (8.5-10.1); CO2 28 mmol/L (21-32); CREATININE 0.9 mg/dL (0.7-1.3); GLUCOSE,RANDOM 82 mg/dL (74-106); SGOT/AST 39 U/L (15-37); SGPT/ALT 54 U/L (12-78); TOT PROT 7.5 g/dl (6.4-8.2)
[2017-02-02 17:43] LABS: URINE APPEARANCE CLEAR; URINE BILIRUBIN NEGATIVE (NEGATIVE); URINE BLOOD NEGATIVE (NEGATIVE); URINE COLOR YELLOW; URINE GLUCOSE (UA) NEGATIVE (NEGATIVE); URINE KETONE NEGATIVE (NEGATIVE); URINE LEUK ESTERASE NEGATIVE (NEGATIVE); URINE NITRITE NEGATIVE (NEGATIVE); URINE PROTEIN NEGATIVE (NEGATIVE); URINE UROBILINOGEN NEGATIVE mg/dL (0.2-1.0)
[2017-02-02] MEDS: ATORVASTATIN CA 20 MG TABLET (FP) PO SCH (21:07)
[2017-02-02] MEDS: THIAMINE HCL 100 MG TABLET (FP) PO SCH (21:07)
[2017-02-02] MEDS: diphenhydrAMINE HCL 50 MG CAPSULE PO PRN (21:08)
[2017-02-03] MEDS: GABAPENTIN 300 MG CAPSULE (FP) PO SCH ×3 (05:50→21:12)
[2017-02-03] MEDS: RANITIDINE HCL 150 MG TABLET (FP) PO SCH ×2 (10:13→21:12)
[2017-02-03] MEDS: ASPIRIN 81 MG CHEWABLE TABLETS PO SCH (10:13)
[2017-02-03] MEDS: NICOTINE 14 MG/24 HOURS TOPICAL PATCH TD SCH (10:13)
[2017-02-03] MEDS: PRENATAL VITAMINS W/ FOLIC ACID TABLET (FP) PO SCH (10:13)
[2017-02-03] MEDS: amLODIPine BESYLATE 5 MG TABLET (FP) PO SCH (10:13)
[2017-02-03] MEDS: ATORVASTATIN CA 20 MG TABLET (FP) PO SCH (21:12)
[2017-02-03] MEDS: THIAMINE HCL 100 MG TABLET (FP) PO SCH (21:12)
[2017-02-03] MEDS: diphenhydrAMINE HCL 50 MG CAPSULE PO PRN (21:15)
[2017-02-04] MEDS: GABAPENTIN 300 MG CAPSULE (FP) PO SCH ×3 (05:56→21:13)
[2017-02-04] MEDS: amLODIPine BESYLATE 5 MG TABLET (FP) PO SCH (09:42)
[2017-02-04] MEDS: RANITIDINE HCL 150 MG TABLET (FP) PO SCH ×2 (09:42→21:14)
[2017-02-04] MEDS: ASPIRIN 81 MG CHEWABLE TABLETS PO SCH (09:42)
[2017-02-04] MEDS: PRENATAL VITAMINS W/ FOLIC ACID TABLET (FP) PO SCH (09:42)
[2017-02-04] MEDS: NICOTINE 14 MG/24 HOURS TOPICAL PATCH TD SCH (09:42)
--- NOTE | 2017-02-04 09:56 | EKG ---
Test Reason : Blood Pressure : / mmHG Vent. Rate : 095 BPM Atrial Rate : 095 BPM P-R Int : 148 ms QRS Dur : 068 ms QT Int : 344 ms P-R-T Axes : 072 -05 033 degrees QTc Int : 432 ms NORMAL SINUS RHYTHM NONSPECIFIC ST ABNORMALITY ABNORMAL ECG Confirmed by MD TONY, DANA (2012) on 02/04/2017 9:56:12 AM Referred By: Candy Serrano Confirmed By:DANA JIMENEZ MD
[2017-02-04] MEDS: THIAMINE HCL 100 MG TABLET (FP) PO SCH (21:13)
[2017-02-04] MEDS: ATORVASTATIN CA 20 MG TABLET (FP) PO SCH (21:14)
[2017-02-04] MEDS: diphenhydrAMINE HCL 50 MG CAPSULE PO PRN (21:14)
[2017-02-05] MEDS: GABAPENTIN 300 MG CAPSULE (FP) PO SCH ×3 (06:09→21:14)
[2017-02-05] MEDS: ASPIRIN 81 MG CHEWABLE TABLETS PO SCH (10:08)
[2017-02-05] MEDS: PRENATAL VITAMINS W/ FOLIC ACID TABLET (FP) PO SCH (10:08)
[2017-02-05] MEDS: amLODIPine BESYLATE 5 MG TABLET (FP) PO SCH (10:08)
[2017-02-05] MEDS: NICOTINE 14 MG/24 HOURS TOPICAL PATCH TD SCH (10:08)
[2017-02-05] MEDS: RANITIDINE HCL 150 MG TABLET (FP) PO SCH ×2 (10:08→21:14)
[2017-02-05] MEDS: ATORVASTATIN CA 20 MG TABLET (FP) PO SCH (21:14)
[2017-02-05] MEDS: THIAMINE HCL 100 MG TABLET (FP) PO SCH (21:15)
[2017-02-05] MEDS: diphenhydrAMINE HCL 50 MG CAPSULE PO PRN (21:15)
[2017-02-06] MEDS: GABAPENTIN 300 MG CAPSULE (FP) PO SCH ×2 (06:12→14:33)
[2017-02-06] MEDS: PRENATAL VITAMINS W/ FOLIC ACID TABLET (FP) PO SCH (09:52)
[2017-02-06] MEDS: RANITIDINE HCL 150 MG TABLET (FP) PO SCH (09:52)
[2017-02-06] MEDS: ASPIRIN 81 MG CHEWABLE TABLETS PO SCH (09:52)
[2017-02-06] MEDS: NICOTINE 14 MG/24 HOURS TOPICAL PATCH TD SCH (09:52)
[2017-02-06] MEDS: amLODIPine BESYLATE 5 MG TABLET (FP) PO SCH (09:52)
[2017-02-06] MEDS: PANTOPRAZOLE 40 MG TABLET (FP) PO SCH (15:59)
[2017-02-06] MEDS: ATORVASTATIN CA 20 MG TABLET (FP) PO SCH (21:12)
[2017-02-06] MEDS: NAPROXEN 500 MG TABLET (FP) PO SCH (21:13)
[2017-02-06] MEDS: THIAMINE HCL 100 MG TABLET (FP) PO SCH (21:13)
[2017-02-06] MEDS: GABAPENTIN 400 MG CAPSULE (FP) PO SCH (21:13)
[2017-02-07] MEDS: GABAPENTIN 400 MG CAPSULE (FP) PO SCH ×3 (06:27→21:11)
[2017-02-07] MEDS: PRENATAL VITAMINS W/ FOLIC ACID TABLET (FP) PO SCH (09:54)
[2017-02-07] MEDS: PANTOPRAZOLE 40 MG TABLET (FP) PO SCH (09:54)
[2017-02-07] MEDS: ASPIRIN 81 MG CHEWABLE TABLETS PO SCH (09:54)
[2017-02-07] MEDS: amLODIPine BESYLATE 5 MG TABLET (FP) PO SCH (09:54)
[2017-02-07] MEDS: NAPROXEN 500 MG TABLET (FP) PO SCH ×2 (09:54→21:12)
[2017-02-07] MEDS: NICOTINE 14 MG/24 HOURS TOPICAL PATCH TD SCH (09:54)
[2017-02-07] MEDS: THIAMINE HCL 100 MG TABLET (FP) PO SCH (21:11)
[2017-02-07] MEDS: ATORVASTATIN CA 20 MG TABLET (FP) PO SCH (21:11)
[2017-02-08] MEDS: diphenhydrAMINE HCL 50 MG CAPSULE PO PRN (00:15)
[2017-02-08] MEDS: GABAPENTIN 400 MG CAPSULE (FP) PO SCH (06:23)
[2017-02-08 06:54] VITALS: BP 129/84; PULSE 88; TEMP 98
[2017-02-08] MEDS: ASPIRIN 81 MG CHEWABLE TABLETS PO SCH (10:15)
[2017-02-08] MEDS: PANTOPRAZOLE 40 MG TABLET (FP) PO SCH (10:15)
[2017-02-08] MEDS: amLODIPine BESYLATE 5 MG TABLET (FP) PO SCH (10:15)
[2017-02-08] MEDS: PRENATAL VITAMINS W/ FOLIC ACID TABLET (FP) PO SCH (10:15)
[2017-02-08] MEDS: NICOTINE 14 MG/24 HOURS TOPICAL PATCH TD SCH (10:16)
[2017-02-08] MEDS: NAPROXEN 500 MG TABLET (FP) PO SCH (10:17)
--- NOTE | 2017-02-08 10:35 | PN ---
Psychiatric Progress Note Vital Signs: Vital Signs Period Temp Pulse Resp BP Sys/[place]cal[place] Pulse Ox Last 24 Hr 98.0 F 88 18-18 129/84 Date of Session: 02/08/17 Chief Complaint:: discharge visit HPI: Patient has addressed alcohol, nicotine dependence. 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 Current Medications: Active Medications Generic Name Dose Route Start Last Admin Trade Name Freq PRN Reason Stop Dose Admin Acetaminophen 650 mg 02/01/17 19:37 Tylenol - PO Q4H PRN PAIN Al Hydroxide/Mg Hydroxide 30 ml 02/01/17 19:37 Mylanta Oral Suspension - PO Q6H PRN DYSPEPSIA Amlodipine Besylate 5 mg 02/02/17 10:00 02/08/17 10:15 Norvasc - PO 5 mg DAILY URIAH Administration Aspirin 81 mg 02/02/17 10:00 02/08/17 10:15 Asa - PO 81 mg DAILY URIAH Administration Atorvastatin Calcium 20 mg 02/01/17 22:00 02/07/17 21:11 Lipitor - PO 20 mg HS URIAH Administration Diphenhydramine HCl 50 mg 02/01/17 19:37 02/08/17 00:15 Benadryl - PO 50 mg HSMR1 PRN Administration INSOMNIA Docusate Sodium 100 mg 02/01/17 19:42 Colace - PO TID PRN CONSTIPATION Eucalyptus/Menthol/Phenol/Sorbitol 1 each 02/01/17 19:37 Cepastat Lozenge - MM Q4H PRN SORE THROAT Gabapentin 800 mg 02/06/17 22:00 02/08/17 06:23 Neurontin - PO 800 mg TID URIAH Administration Guaifenesin 10 ml 02/01/17 19:37 Robitussin Dm - PO Q6H PRN COUGH Hydroxyzine Pamoate 50 mg 02/01/17 19:37 Vistaril - PO Q4H PRN AGITATION Loperamide HCl 4 mg 02/01/17 19:37 Imodium - PO Q6H PRN DIARRHEA Magnesium Citrate 300 ml 02/01/17 19:37 Citroma - PO Q48H PRN CONSTIPATION Magnesium Hydroxide 30 ml 02/01/17 19:37 Milk Of Magnesia - PO DAILY PRN CONSTIPATION Naproxen 500 mg 02/06/17 22:00 02/08/17 10:17 Naprosyn - PO 500 mg BID URIAH Administration Nicotine 14 mg 02/02/17 10:00 02/08/17 10:16 Nicoderm Patch - TD Not Given DAILY URIAH Nicotine Polacrilex 2 mg 02/01/17 19:37 Nicorette Gum - BUC Q2H PRN NICOTINE REPLACEMENT RX Pantoprazole Sodium 40 mg 02/06/17 15:15 02/08/17 10:15 Protonix - PO 40 mg DAILY URIAH Administration Multivit/Folic Acid/Iron 1 tab 02/02/17 10:00 02/08/17 10:15 Vitamins (Sjr) - PO 1 tab DAILY URIAH Administration Pseudoephedrine/Triprolidine 1 combo 02/01/17 19:37 Actifed - PO TID PRN NASAL CONGESTION Senna 2 tab 02/01/17 19:42 02/02/17 21:07 Senna - PO 2 tab HS PRN Administration CONSTIPATION Thiamine HCl 100 mg 02/01/17 22:00 02/07/17 21:11 Vitamin B1 - PO 100 mg HS URIAH Administration Current Side Effect: No Lab tests ordered: No Lab tests reviewed: Yes Provider note:: Patient requested to be discharged earlier, he has completed 7 days treatment and met short term goals, he rejected the referrals recommended by his primary counselor. He reports will continue maintain abstinence on his own. Patient was encouraged to utilize all supports available to prevent relapses. He is stable for discharge today. Total face to face time:: 15 Mental Status Exam - Mental Status Exam Alert and Oriented to: Time, Place, Person Cognitive Function: Good Patient Appearance: Well Groomed Mood: Hopeful Affect: Appropriate, Mood Congruent Patient Behavior: Appropriate, Cooperative Speech Pattern: Clear, Appropriate Voice Loudness: Normal Thought Process: Goal Oriented Thought Disorder: Not Present Hallucinations: Denies Suicidal Ideation: Denies Homicidal Ideation: Denies Insight/Judgement: Fair Sleep: Fair Appetite: Fair Muscle strength/Tone: Normal Gait/Station: Normal Psychiatric Treatment Plan - Problem List (1) Alcohol dependence Current Visit: Yes (2) Hepatitis C Current Visit: Yes (3) Nicotine dependence Current Visit: Yes Qualifiers: Nicotine product type: cigarettes Substance use status: in withdrawal Qualified Code(s): F17.213 - Nicotine dependence, cigarettes, with withdrawal (4) Essential hypertension Current Visit: Yes (5) Gastroesophageal reflux disease Current Visit: Yes
== END 2017-02-08 12:40 | disposition home or self-care (01) | DRG 895 ==
LOC: YASAS 15:13 → Y5N 18:24
PROVIDERS: ADMIT Psychiatry & Neurology Psychiatry; ATTEND Psychiatry & Neurology Psychiatry
PROC: HZ42ZZZ Group Counseling for Substance Abuse Treatment, Cognitive-Behavioral (ICD-10-PCS; principal; 2017-02-01)
DX: F10.20 Alcohol dependence, uncomplicated (principal); F17.213 Nicotine dependence, cigarettes, with withdrawal; I10 Essential (primary) hypertension; B18.2 Chronic viral hepatitis C; K21.9 Gastro-esophageal reflux disease without esophagitis; E78.00 Pure hypercholesterolemia, unspecified; K59.01 Slow transit constipation; Z59.0 Homelessness
CPT/HCPCS: 36415; 80053; 81003; 85027; 86593; 93005; 93010

== ENCOUNTER 2017-04-26 03:06 | Emergency (ER) | payer OTHER ==
--- NOTE | 2017-04-26 03:15 | PDOC ---
History of Present Illness - General Chief Complaint: Alcohol intoxication Stated Complaint: INTOX,FALL,BACK PAIN Time Seen by Provider: 04/26/17 03:10 History Source: Patient Exam Limitations: Intoxication - History of Present Illness Initial Comments: 04/26/17 04:45 72m with history of alcoholism presents to the ED after last few days of multiple falls on bacl, knees and head, and binge-drinking sessions, the last of which consisting of 3 bottles of "Parmesan Afua" States that he wish to reintegrate rehab at [facility]. Last rehabilitation esd 2 months ago per patient 04/26/17 06:33 Past History - Past Medical History Allergies/Adverse Reactions: Allergies Allergy/AdvReac Type Severity Reaction Status Date / Time No Known Allergies Allergy Verified 04/26/17 03:15 Home Medications: Ambulatory Orders Gabapentin [Neurontin -] 600 mg PO TID 08/17/16 Atorvastatin Ca [Lipitor] 20 mg PO HS #30 tablet 11/20/16 Amlodipine Besylate [Norvasc -] 5 mg PO DAILY #30 tablet 02/08/17 Aspirin [ASA -] 81 mg PO DAILY #30 tab 02/08/17 Gabapentin [Neurontin -] 800 mg PO TID #90 cap 02/08/17 Pantoprazole Sodium [Protonix -] 40 mg PO DAILY #30 tab 02/08/17 Simvastatin [Zocor -] 40 mg PO HS #30 tablet 02/08/17 Anemia: No Asthma: No Cancer: No Cardiac Disorders: Yes CVA: No COPD: No CHF: No Dementia: No Diabetes: No GI Disorders: Yes Disorders: No HTN: Yes Hypercholesterolemia: Yes (ON MED) Kidney Stones: No Liver Disease: Yes (HEP C) Seizures: No Thyroid Disease: No - Surgical History Abdominal Surgery: No Appendectomy: No Cardiac Surgery: No Cholecystectomy: No Lung Surgery: No Neurologic Surgery: No Orthopedic Surgery: Yes (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 Last drink on 01/21/17) Hx Substance Use Treatment: Yes (3 previous inpt detox & 2 inpt rehab @ [facility]) Review of Systems - Review of Systems Able to Perform ROS?: No (intoxication) *Physical Exam - Physical Exam General Appearance: Yes: Appropriately Dressed, Alcohol on Breath, Intoxicated. No: Apparent Distress HEENT: positive: EOMI, Normal ENT Inspection. negative: Normal Voice (slurred) Neck: negative: Tender Respiratory/Chest: negative: Chest Tender Cardiovascular: positive: Regular Rhythm, Regular Rate, S1, S2 Vascular Pulses: Dorsalis-Pedis (R): 2+, Doralis-Pedis (L): 2+ Gastrointestinal/Abdominal: positive: Normal Bowel Sounds. negative: Tender Musculoskeletal: positive: Normal Inspection. negative: CVA Tenderness Extremity: positive: Normal Capillary Refill, Normal Inspection. negative: Pedal Edema Integumentary: positive: Normal Color, Dry, Warm (hot). negative: Erythema, Jaundice, Mottled, Pale, Clammy, Diaphoresis, Petechiae, Rash, Swelling, Ecchymosis, Bruising, Other Neurologic: positive: Confused, Disoriented. negative: Finger to Nose ED Treatment Course - LABORATORY CBC & Chemistry Diagram: 04/26/17 04:20 04/26/17 04:20 Medical Decision Making - Medical Decision Making 04/26/17 04:49 I will assess level of intoxication with alcohol level, anemia on cbc, cmp, cxr to r/o aspiration, will assess head trauma with ct head Etoh level 271 banana bag for fluids being prepared by pharmacy 04/26/17 04:50 04/26/17 07:[address] negative for acute pathology CXR negative Repeat alcohol level. 04/26/17 07:31 Patient asleep very difficult to arouse. Will watch for signs of withdrawal. Stated he wished to go back to rehab at [facility] upon discharge. Patient signed out to Dr. Shu Ellison 04/26/17 07:33 *DC/Admit/Observation/Transfer Diagnosis at time of Disposition: Alcohol intoxication - Referrals - Patient Instructions - Post Discharge Activity
--- NOTE | 2017-04-26 03:47 | PDOC ---
Attending Attestation - HPI HPI: 04/26/17 04:04 Patient is a 72 year old male, from [facility], with a significant past medical history of Long history of alcohol dependence, nicotine dependence, HTN, Gerd,Hyperlipidemia, who was brought by EMS to the ED s/p Alcohol Intoxication. As per EMS patient ingested 3 full bottles of Afua alcohol. EMS reports patient fell onto knees and back , but states it is unknown if patient hit his head or lost consciousness after initial fall. Patient currently does not have any other complaints. Denies chest pain, SOB. Denies fever, chills. Denies nausea, vomiting. Denies any other symptoms. Allergies: None Social history: Former smoker. Former drinker. No illicit drugs. Surgical history: None PMD: None - Medical Decision Making 04/26/17 04:04 Documentation prepared by Placido Madrid, acting as medical director for Liam Lew MD/DO. <Placido Madrid - Last Filed: 04/26/17 04:32> - Resident Resident Name: Jimbo Madden - ED Attending Attestation I have performed the following: I have examined & evaluated the patient, The case was reviewed & discussed with the resident, I agree w/resident's findings & plan, Exceptions are as noted - Physicial Exam PE: 04/26/17 19:52 *Physical Exam General Appearance: Yes: Appropriately Dressed. intoxicated. No: Apparent Distress, HEENT: positive: EOMI, FRANCISCO, Normal ENT Inspection, Normal Voice, TMs Normal, Pharynx Normal. negative: Pale Conjunctivae, Photophobia, Scleral Icterus (R), Scleral Icterus (L) Neck: positive: Trachea midline, Normal Thyroid, Supple. negative: Tender, Rigid, Carotid bruit, Stridor, Lymphadenopathy (R), Lymphadenopathy (L), Thyromegaly Respiratory/Chest: positive: Lungs Clear, Normal Breath Sounds. negative: Chest Tender, Respiratory Distress, Accessory Muscle Use, Labored Respiration, RES, Crackles, Rales, Rhonchi, Stridor, Wheezing, Dullness Cardiovascular: positive: Regular Rhythm, Regular Rate, S1, S2. negative: Edema , JVD, Murmur, Bradycardia, Tachycardia Vascular Pulses: Dorsalis-Pedis (R): 2+, Doralis-Pedis (L): 2+ Gastrointestinal/Abdominal: positive: Normal Bowel Sounds, Flat, Soft. negative : Tender, Organomegaly, Pulsatile Mass, Increased Bowel Sounds, Decreased BS, Distended, Guarding, Rebound, Hernia, Hepatomegaly, Spleenomegaly Lymphatic: negative: Adenopathy, Tenderness Musculoskeletal: positive: Normal Inspection. negative: CVA Tenderness, Decreased Range of Motion Extremity: positive: Normal Capillary Refill, Normal Inspection, Normal Range of Motion, Pelvis Stable. negative: Tender, Pedal Edema, Swelling, Erythema Integumentary: positive: Normal Color, Dry, Warm. negative: Cyanotic, Erythema , Jaundice, Rash Neurologic: positive: topographical surveyor II-XII NML intact, Fully Oriented, Alert, Normal Mood/ Affect, Motor Strength 5/5. negative: EOM Palsy, Facial Droop, Sensory Deficit - Medical Decision Making 04/26/17 19:54 Pt was treated and released to [facility] <Liam Lew - Last Filed: 04/26/17 19:55>
[2017-04-26 03:54] VITALS: BMI 23.3
[2017-04-26 04:32] LABS: BASOPHIL 1.5 % (0-2.0); EOSINOPHIL 4.9 % (0-4.5); MCH 32.7 pg (25.7-33.7); MCHC 33.1 g/dl (32.0-35.9); MEAN CELL VOLUME 98.9 fl (80-96); MEAN PLT VOLUME 8.5 fl (7.5-11.1); NEUTROPHILS 35.5 % (42.8-82.8); PLATELET COUNT 187 K/MM3 (134-434); RDW 16.7 % (11.9-15.9); WHITE BLOOD COUNT 3.8 K/mm3 (4.0-10.0)
[2017-04-26 04:33] LABS: URINE APPEARANCE CLEAR; URINE BILIRUBIN NEGATIVE (NEGATIVE); URINE BLOOD 1+ (NEGATIVE); URINE COLOR YELLOW; URINE GLUCOSE (UA) NEGATIVE (NEGATIVE); URINE KETONE NEGATIVE (NEGATIVE); URINE NITRITE NEGATIVE (NEGATIVE); URINE PROTEIN NEGATIVE (NEGATIVE)
[2017-04-26 04:42] LABS: URINE HYALINE CAST 4 /lpf; URINE MUCUS MODERATE; URINE RBC 4 /hpf (0-3); URINE WBC 2 /hpf (3-5)
[2017-04-26] MEDS ORDERED: FOLIC ACID INJECTION - 1 MG, THIAMINE HCL 100 MG, MULTIVIT INJECTION ADULT 10 ML in SOD... IVPB ONE (04:49)
[2017-04-26 04:54] LABS: ALBUMIN 3.7 g/dl (3.4-5.0); ALK PHOS 75 U/L (45-117); ANION GAP 9 (8-16); BILIRUBIN,TOTAL 0.2 mg/dL (0.2-1.0); CALCIUM 8.5 mg/dL (8.5-10.1); CO2 27 mmol/L (21-32); CREATININE 0.9 mg/dL (0.7-1.3); GLUCOSE,RANDOM 91 mg/dL (74-106); SGOT/AST 39 U/L (15-37); SGPT/ALT 36 U/L (12-78); TOT PROT 7.3 g/dl (6.4-8.2)
--- NOTE | 2017-04-26 07:49 | PDOC ---
*Physical Exam - Vital Signs Patient's care signed out to me by Dr. Madden at the beginning of my shift. Patient with chronic issues with EtOH misuse (dc from rehab two months ago) who p/w intoxication and GLF onto head, back, and knees. Head CT and CXR negative. C /o knee pain. Awaiting banana bag and sober then plan is to dispo to [facility]. Last Vital Signs Temp Pulse Resp BP Pulse Ox 72 14 105/89 98 04/26/17 03:15 04/26/17 03:15 04/26/17 03:15 04/26/17 03:15 - Physical Exam General Appearance: Yes: Disheveled (smells a bit of urine). No: Apparent Distress HEENT: positive: EOMI, FRANCISCO, Normal Voice, Hearing Grossly Normal. negative: Scleral Icterus (R), Scleral Icterus (L), Nasal Congestion Neck: positive: Trachea midline, Supple. negative: Tender, Rigid Respiratory/Chest: positive: Lungs Clear, Normal Breath Sounds. negative: Respiratory Distress, Crackles, Rhonchi, Stridor, Wheezing Cardiovascular: positive: Regular Rhythm, Regular Rate. negative: Murmur Gastrointestinal/Abdominal: positive: Normal Bowel Sounds, Flat, Soft. negative : Tender, Organomegaly, Pulsatile Mass, Guarding Musculoskeletal: positive: Normal Inspection. negative: Decreased Range of Motion, Vertebral Tenderness Extremity: positive: Normal Capillary Refill, Normal Inspection, Normal Range of Motion. negative: Tender, Cyanosis Integumentary: positive: Normal Color, Dry, Warm. negative: Erythema, Rash, Bruising Neurologic: positive: supervisor drying and winding II-XII NML intact (grossly), Fully Oriented, Alert, Normal Mood/Affect, Normal Response, Motor Strength 5/5, Other (gait is shuffling but no difficulty balancing or walking). negative: Confused ED Treatment Course - LABORATORY CBC & Chemistry Diagram: 04/26/17 04:20 04/26/17 04:20 - ADDITIONAL ORDERS Additional order review: Laboratory Results 04/26/17 04/26/17 04/26/17 04:20 04:20 04:20 Sodium 142 Potassium 3.7 Chloride 106 Carbon Dioxide 27 Anion Gap 9 BUN 12 D Creatinine 0.9 Creat Clearance w eGFR > 60 Random Glucose 91 Calcium 8.5 Total Bilirubin 0.2 D AST 39 H ALT 36 D Alkaline Phosphatase 75 Total Protein 7.3 Albumin 3.7 Urine Color Yellow Urine Appearance Clear Urine pH 5.0 D Ur Specific [place] 1.014 Urine Protein Negative Urine Glucose (UA) Negative Urine Ketones Negative Urine Blood 1+ H Urine Nitrite Negative Urine Bilirubin Negative Urine Urobilinogen 2.0 Urine WBC (Auto) 2 Urine RBC (Auto) 4 Hyaline Casts 4 Urine Mucus Moderate Alcohol, Quantitative 271.6 H* 04/26/17 04:20 RBC 4.31 MCV 98.9 H MCHC 33.1 RDW 16.7 H MPV 8.5 Neutrophils % 35.5 L Lymphocytes % 39.5 D Monocytes % 18.6 H Eosinophils % 4.9 H Basophils % 1.5 Medical Decision Making - Medical Decision Making 04/26/17 11:15 Patient encountered standing unassisted near hospital bed in holding, not leaning on anything, fairly steady. 04/26/17 13:36 Spoke with [facility] Dr. Gilmore and let her know about the patient and the fact that he is medically cleared. She will have the patient evaluated for intake. The patient will be discharged, go to the lobby, talk to security, and get a ride to [facility]. *DC/Admit/Observation/Transfer Diagnosis at time of Disposition: Alcohol intoxication Qualifiers: Complication of substance-induced condition: uncomplicated Qualified Code(s): F10.920 - Alcohol use, unspecified with intoxication, uncomplicated - Discharge Dispostion Disposition: HOME Condition at time of disposition: Stable Admit: No - Referrals - Patient Instructions Printed Discharge Instructions: DI for Alcohol Abuse Additional Instructions: Please go to the lobby of [facility], talk to security, and they will drive you to [facility] for evaluation for detox admission. Return to the ER for any new or worsening symptoms like seizures, hallucinations, shaking that you cannot control, passing out, or other symptoms. - Post Discharge Activity
[2017-04-26 10:55] LABS: URINE LEUK ESTERASE Negative (NEGATIVE)
--- NOTE | 2017-04-26 12:53 | EKG ---
Test Reason : Blood Pressure : / mmHG Vent. Rate : 075 BPM Atrial Rate : 075 BPM P-R Int : 154 ms QRS Dur : 078 ms QT Int : 404 ms P-R-T Axes : 077 -10 022 degrees QTc Int : 451 ms POOR DATA QUALITY, INTERPRETATION MAY BE ADVERSELY AFFECTED NORMAL SINUS RHYTHM CANNOT RULE OUT ANTERIOR INFARCT , AGE UNDETERMINED ABNORMAL ECG WHEN COMPARED WITH ECG OF 01-FEB-2017 22:42, NO SIGNIFICANT CHANGE WAS FOUND Confirmed by CHIP OTERO MD ([id number]) on 04/26/2017 12:52:56 PM Referred By: Confirmed By:CHIP OTERO MD
[2017-04-26 14:19] VITALS: BP 122/77; PULSE 80; TEMP 98.6
== END 2017-04-26 14:26 | disposition home or self-care (01) ==
LOC: JER 03:06
PROC: 3E033GC Introduction of Other Therapeutic Substance into Peripheral Vein, Percutaneous Approach (ICD-10-PCS; principal; 2017-04-26)
DX: F10.120 Alcohol abuse with intoxication, uncomplicated (principal); Z91.81 History of falling; I10 Essential (primary) hypertension; E78.00 Pure hypercholesterolemia, unspecified; B19.20 Unspecified viral hepatitis C without hepatic coma; F17.210 Nicotine dependence, cigarettes, uncomplicated
CPT/HCPCS: 36415; 70450-TC; 71010-TC; 80053; 80307; 81003; 81015; 85025; 93005; 93010; 99285-25

== ENCOUNTER 2017-04-26 17:52 | Emergency (ER) | payer OTHER ==
--- NOTE | 2017-04-26 18:16 | PDOC ---
History of Present Illness - General Stated Complaint: Alcohol intoxication Time Seen by Provider: 04/26/17 18:15 - History of Present Illness Initial Comments: 04/26/17 18:18 PMH: Long history of alcohol dependence, nicotine dependence, HTN, Gerd, Hyperlipidemia Past History - Past Medical History Allergies/Adverse Reactions: Allergies Allergy/AdvReac Type Severity Reaction Status Date / Time No Known Allergies Allergy Verified 04/26/17 03:15 Home Medications: Ambulatory Orders Gabapentin [Neurontin -] 600 mg PO TID 08/17/16 Atorvastatin Ca [Lipitor] 20 mg PO HS #30 tablet 11/20/16 Amlodipine Besylate [Norvasc -] 5 mg PO DAILY #30 tablet 02/08/17 Aspirin [ASA -] 81 mg PO DAILY #30 tab 02/08/17 Gabapentin [Neurontin -] 800 mg PO TID #90 cap 02/08/17 Pantoprazole Sodium [Protonix -] 40 mg PO DAILY #30 tab 02/08/17 Simvastatin [Zocor -] 40 mg PO HS #30 tablet 02/08/17 Anemia: No Asthma: No Cancer: No Cardiac Disorders: Yes CVA: No COPD: No CHF: No Dementia: No Diabetes: No GI Disorders: Yes Disorders: No HTN: Yes Hypercholesterolemia: Yes (ON MED) Kidney Stones: No Liver Disease: Yes (HEP C) Seizures: No Thyroid Disease: No - Surgical History Abdominal Surgery: No Appendectomy: No Cardiac Surgery: No Cholecystectomy: No Lung Surgery: No Neurologic Surgery: No Orthopedic Surgery: Yes (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 Last drink on 01/21/17) Hx Substance Use Treatment: Yes (3 previous inpt detox & 2 inpt rehab @ [facility])
[2017-04-26 19:13] VITALS: BP 103/68; PULSE 70; TEMP 98.5; BMI 22.2
--- NOTE | 2017-04-26 21:23 | PDOC ---
History of Present Illness - General Chief Complaint: Alcohol intoxication Stated Complaint: Alcohol intoxication Time Seen by Provider: 04/26/17 18:15 - History of Present Illness Initial Comments: 04/26/17 21:21 72 M BIBEMS for intoxication. Pt admits to drinking several alcoholic beverages prior to arrival. Denies coingestions. Denies falls or other trauma. Has no complaints at this time. Past History - Past Medical History Allergies/Adverse Reactions: Allergies Allergy/AdvReac Type Severity Reaction Status Date / Time No Known Allergies Allergy Verified 04/26/17 19:13 Home Medications: Ambulatory Orders Gabapentin [Neurontin -] 600 mg PO TID 08/17/16 Atorvastatin Ca [Lipitor] 20 mg PO HS #30 tablet 11/20/16 Amlodipine Besylate [Norvasc -] 5 mg PO DAILY #30 tablet 02/08/17 Aspirin [ASA -] 81 mg PO DAILY #30 tab 02/08/17 Gabapentin [Neurontin -] 800 mg PO TID #90 cap 02/08/17 Pantoprazole Sodium [Protonix -] 40 mg PO DAILY #30 tab 02/08/17 Simvastatin [Zocor -] 40 mg PO HS #30 tablet 02/08/17 Anemia: No Asthma: No Cancer: No Cardiac Disorders: Yes CVA: No COPD: No CHF: No Dementia: No Diabetes: No GI Disorders: Yes Disorders: No HTN: Yes Hypercholesterolemia: Yes (ON MED) Kidney Stones: No Liver Disease: Yes (HEP C) Seizures: No Thyroid Disease: No - Surgical History Abdominal Surgery: No Appendectomy: No Cardiac Surgery: No Cholecystectomy: No Lung Surgery: No Neurologic Surgery: No Orthopedic Surgery: Yes (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 Last drink on 01/21/17) Hx Substance Use Treatment: Yes (3 previous inpt detox & 2 inpt rehab @ [facility]) Review of Systems - Review of Systems Comments:: 04/26/17 21:21 "GENERAL/CONSTITUTIONAL: No fever or chills. No weakness. HEAD, EYES, EARS, NOSE AND THROAT: No change in vision. No ear pain or discharge. No sore throat. CARDIOVASCULAR: No chest pain or shortness of breath. RESPIRATORY: No cough, wheezing, or hemoptysis. GASTROINTESTINAL: No nausea, vomiting, diarrhea or constipation. GENITOURINARY: No dysuria, frequency, or change in urination. MUSCULOSKELETAL: No joint or muscle swelling or pain. No neck or back pain. SKIN: No rash NEUROLOGIC: No headache, vertigo, loss of consciousness, or change in strength/ sensation. ENDOCRINE: No increased thirst. No abnormal weight change. HEMATOLOGIC/LYMPHATIC: No anemia, easy bleeding, or history of blood clots. ALLERGIC/IMMUNOLOGIC: No hives or skin allergy. " *Physical Exam - Vital Signs Last Vital Signs Temp Pulse Resp BP Pulse Ox 98.5 F 70 23 103/68 96 04/26/17 18:00 04/26/17 18:00 04/26/17 18:00 04/26/17 18:00 04/26/17 18:00 - Physical Exam Comments: 04/26/17 21:22 "GENERAL: Awake, alert, and fully oriented, in no acute distress HEAD: No signs of trauma EYES: PERRLA, EOMI, sclera anicteric, conjunctiva clear ENT: Auricles normal inspection, hearing grossly normal, nares patent, oropharynx clear without exudates. Moist mucosa NECK: Nontender, no stepoffs, Normal ROM, supple, no lymphadenopathy, JVD, or masses LUNGS: Breath sounds equal, clear to auscultation bilaterally. No wheezes, and no crackles HEART: Regular rate and rhythm, normal S1 and S2, no murmurs, rubs or gallops ABDOMEN: Soft, nontender, normoactive bowel sounds. No guarding, no rebound. No masses EXTREMITIES: Normal range of motion, no edema. No clubbing or cyanosis. No cords, erythema, or tenderness NEUROLOGICAL: Cranial nerves II through XII intact. 5/5 strength and sensation in all extremities, Normal speech, normal gait SKIN: Warm, Dry, normal turgor, no rashes or lesions noted. " Medical Decision Making - Medical Decision Making 04/26/17 21:22 72 M with presents to ER with ETOH intoxication. no evidence of trauma on exam. Pt with stable vitals, normal exam, but still clinically intoxicated at this time. - Allow to metabolize in ER - Reassess 04/26/17 22:16 Pt re-evaluated, now awake, alert, tolerating PO. Ambulatory with normal gait. Vitals wnl. Clinically stable for DC. 04/26/17 22:43 Pt requesting detox. Called [facility] and confirmed availability of bed. Will arrange for pt to be sent to [facility] rehab with security. *DC/Admit/Observation/Transfer Diagnosis at time of Disposition: Alcohol intoxication - Discharge Dispostion Disposition: HOME - Referrals - Patient Instructions Printed Discharge Instructions: DI for Alcohol Abuse Additional Instructions: Follow up with your primary doctor within 1 week. Return to the ER if you experience chest pain, shortness of breath, headache, or any other concerning symptoms. - Post Discharge Activity - Attestations Physician Attestion: 04/26/17 22:17 I, Dr. Stiven Deluca MD, attest that this document has been prepared under my direction and personally reviewed by me in its entirety. I further attest, that it accurately reflects all work, treatment, procedures and medical decision -making performed by me.
== END 2017-04-26 23:30 | disposition home or self-care (01) ==
LOC: JER 17:52
DX: F10.10 Alcohol abuse, uncomplicated (principal); I10 Essential (primary) hypertension; E78.00 Pure hypercholesterolemia, unspecified; B18.2 Chronic viral hepatitis C; F17.210 Nicotine dependence, cigarettes, uncomplicated; Z59.0 Homelessness
CPT/HCPCS: 99282-25

== ENCOUNTER 2017-04-27 01:10 | Inpatient (IN) | payer OTHER ==
--- NOTE | 2017-04-27 01:45 | HP ---
CIWA Score - CIWA Score Nausea/Vomitin-No Nausea/No Vomiting Muscle Tremors: 4-Moderate,w/Arms Extend Anxiety: 4-Mod. Anxious/Guarded Agitation: 3 Paroxysmal Sweats: 1-Minimal Palms Moist Orientation: 1-Uncertain about Date Tacttile Disturbances: 0-None Auditory Disturbances: 0-None Visual Disturbances: 0-None Headache: 4-Moderately Severe CIWA-Ar Total Score: 17 Admission [facility] - HPI Chief Complaint: Alcohol withdrawal symptoms Allergies/Adverse Reactions: Allergies Allergy/AdvReac Type Severity Reaction Status Date / Time No Known Allergies Allergy Verified 04/26/17 19:13 History of Present Illness: 72 years old with a long history of alcohol dependence is admitted to detox. Patient has been in previous detox and reports 5 years of sobriety when he was incarcerated. He has medical history GERD, Hyperlipidemia, HTN, Hep. C, spinal stenosis and arthritis. He denies suicidal ideation at this time. He was referred from [facility]. Exam Limitations: Intoxication - Ebola screening Have you traveled outside of the country in the last 21 days: No Have you had contact with anyone from an Ebola affected area: No Have you been sick,other than usual withdrawal symptoms: No Do you have a fever: No - Review of Systems Constitutional: Loss of Appetite, Malaise, Night Sweats, Changes in sleep EENT: reports: No Symptoms Reported Respiratory: reports: No Symptoms reported Cardiac: reports: No Symptoms Reported GI: reports: Poor Appetite, Poor Fluid Intake, Abdominal cramping : reports: No Symptoms Reported Musculoskeletal: reports: Back Pain, Muscle Pain, Muscle Weakness Integumentary: reports: Flushing Neuro: reports: Headache, Tingling, Tremors Endocrine: reports: No Symptoms Reported Hematology: reports: No Symptoms Reported Psychiatric: reports: Anxious, Depressed Other Systems: Reviewed and Negative Patient History - Patient Medical History Hx Anemia: No Hx Asthma: No Hx Chronic Obstructive Pulmonary Disease (COPD): No Hx Cancer: No Hx Cardiac Disorders: Yes Hx Congestive Heart Failure: No Hx Hypertension: Yes Hx Hypercholesterolemia: Yes (ON MED) Hx Pacemaker: No HX Cerebrovascular Accident: No Hx Seizures: No Hx Dementia: No Hx Diabetes: No Hx Gastrointestinal Disorders: Yes (GERD) Hx Liver Disease: Yes (Not on meds) Hx Genitourinary Disorders: No Hx Sexually Transmitted Disorders: No Hx Renal Disease (ESRD): No Hx Thyroid Disease: No Hx Human Immunodeficiency Virus (HIV): No (NEGATIVE 2017) Hx Hepatitis C: Yes (Not on Meds) Hx Depression: No Hx Suicide Attempt: No (Denies suicidal ideation) Hx Bipolar Disorder: No Hx Schizophrenia: No - Patient Surgical History Past Surgical History: Yes Hx Neurologic Surgery: No Hx Cataract Extraction: No Hx Cardiac Surgery: No Hx Lung Surgery: No Hx Abdominal Surgery: No Hx Appendectomy: No Hx Cholecystectomy: No Hx Genitourinary Surgery: No Hx Orthopedic Surgery: Yes (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 History Hx Alcohol Use: Yes Hx Substance Use: No Substance Use Type: Alcohol Hx Substance Use Treatment: Yes ([facility]) - Substances Abused Alcohol Route: Oral Frequency: Daily Amount used: GURWINDER -3 pints, Age of first use: 17 Date of Last Use: 04/26/17 Family Disease History - Family Disease History Family Disease History: Heart Disease: Father ( OF [place]), Sister ([place] X 1), Other: Mother (THUY GEHRIG DISEASE, ) Admission Physical Exam [facility] - Physical General Appearance: Yes: Moderate Distress, Alcohol on Breath, Intoxicated, Tremorous, Irritable, Sweating, Anxious HEENTM: Yes: Within Normal Limits, Nasal Congestion Respiratory: Yes: Lungs Clear, Normal Breath Sounds, No Respiratory Distress Neck: Yes: Supple Breast: Yes: Breast Exam Deferred Cardiology: Yes: Tachycardia, Other (chest wall tatoo) Abdominal: Yes: Within Normal Limits Genitourinary: Yes: Within Normal Limits Musculoskeletal: Yes: Within Normal Limits, Muscle Pain, Muscle weakness Extremities: Yes: Tremors Neurological: Yes: Within Normal Limits, Alert Integumentary: Yes: Dry Lymphatic: Yes: Within Normal Limits - Diagnostic (1) Alcohol dependence with uncomplicated withdrawal Current Visit: No Status: Chronic (2) Hepatitis C Current Visit: No Status: Chronic (3) Nicotine dependence Current Visit: No Status: Chronic Qualifiers: Nicotine product type: cigarettes Substance use status: in withdrawal Qualified Code(s): F17.213 - Nicotine dependence, cigarettes, with withdrawal (4) Essential hypertension Current Visit: No Status: Chronic (5) Gastroesophageal reflux disease Current Visit: No Status: Chronic Cleared for Admission S - Detox or Rehab [facility] Level of Care: Medically Managed Detox Regimen/Protocol: Librium S Breath Alcohol Content Breath Alcohol Content: 0.150 Vital Signs - Vital Signs Vital Signs Refused: Yes Temperature: 96.9 F Temperature Source: Oral Pulse Rate: 98 Respiratory Rate: 18 Blood Pressure: 140/77 BP Location: Left Arm Blood Pressure Position: Sitting - Height Height: 5 ft 6 in - Weight Weight: 155 lb Weight Measurement Method: Standing Scale Body Mass Index (BMI): 25.0 - Bowel Function Bowel Movement: No Urine Drug Screen - Test Device Lot Number: [id number] Expiration Date: 12/25/18 - Control Is Test Valid: Yes - Results Drug Screen Negative: No Urine Drug Screen Results: BZO-Benzodiazepines
[2017-04-27] MEDS ORDERED: ACETAMINOPHEN 325 MG TABLET (FP) PO PRN (02:10)
[2017-04-27] MEDS ORDERED: guaiFENesin/D-METHORPHAN HB 10 ML UNIT-DOSE CUPS PO PRN (02:10)
[2017-04-27] MEDS ORDERED: MENTHOL/PHENOL 1 EACH UD MM PRN (02:10)
[2017-04-27] MEDS ORDERED: MAGNESIUM HYDROX 2400MG/30ML ORAL SUSPENSION 30 ML CUP PO PRN (02:10)
[2017-04-27] MEDS ORDERED: MAG HYDROX/AL HYDROX/SIMETH 30 ML UNIT-DOSE CUP PO PRN (02:10)
[2017-04-27] MEDS ORDERED: LOPERAMIDE HCL 2 MG CAPSULE PO PRN (02:10)
[2017-04-27] MEDS ORDERED: NICOTINE POLACRILEX 2 MG GUM BC PRN (02:10)
[2017-04-27] MEDS ORDERED: chlordiazePOXIDE HCL 25 MG CAPSULE PO PRN (02:10)
[2017-04-27] MEDS ORDERED: IBUPROFEN 400 MG TABLET (FP) PO PRN (02:10)
[2017-04-27] MEDS ORDERED: MAGNESIUM CITRATE 300 ML BOTTLE PO PRN (02:10)
[2017-04-27 02:19] VITALS: BMI 25.0
[2017-04-27] MEDS: chlordiazePOXIDE HCL 25 MG CAPSULE PO SCH ×4 (08:01→22:31)
[2017-04-27 09:48] LABS: MCH 32.2 pg (25.7-33.7); MCHC 32.4 g/dl (32.0-35.9); MEAN CELL VOLUME 99.1 fl (80-96); MEAN PLT VOLUME 8.6 fl (7.5-11.1); PLATELET COUNT 177 K/MM3 (134-434); RDW 16.7 % (11.9-15.9); WHITE BLOOD COUNT 2.4 K/mm3 (4.0-10.0)
--- NOTE | 2017-04-27 10:09 | EKG ---
Test Reason : Blood Pressure : / mmHG Vent. Rate : 086 BPM Atrial Rate : 086 BPM P-R Int : 142 ms QRS Dur : 082 ms QT Int : 364 ms P-R-T Axes : 069 023 055 degrees QTc Int : 435 ms NORMAL SINUS RHYTHM SEPTAL INFARCT (CITED ON OR BEFORE 26-APR-2017) ABNORMAL ECG WHEN COMPARED WITH ECG OF 26-APR-2017 03:54, NO SIGNIFICANT CHANGE WAS FOUND Confirmed by CARLOS EDUARDO SAUNDERS MD ([id number]) on 04/27/2017 10:08:24 AM Referred By: Confirmed By:CARLOS EDUARDO SAUNDERS MD
--- NOTE | 2017-04-27 10:18 | PN ---
[facility] CIWA - CIWA Score Nausea/Vomitin-No Nausea/No Vomiting Muscle Tremors: 4-Moderate,w/Arms Extend Anxiety: 4-Mod. Anxious/Guarded Agitation: 4-Moderately Restless Paroxysmal Sweats: 1-Minimal Palms Moist Orientation: 0-Oriented Tacttile Disturbances: 3-Moderate Itch/Numb/Burn Auditory Disturbances: 0-None Visual Disturbances: 0-None Headache: 0-None Present CIWA-Ar Total Score: 16 S Progress Note (SOAP) Subjective: ANXIETY,SWEATS,TREMULOUS,INTERMITTENT SLEEP.C/P ABRASIONS TO RIGHT KNEE Objective: 04/27/17 10:15 Vital Signs Temperature 98.0 F 04/27/17 10:00 Pulse Rate 72 04/27/17 10:00 Respiratory Rate 18 04/27/17 10:00 Blood Pressure 94/67 04/27/17 10:00 O2 Sat by Pulse Oximetry (%) Laboratory Last Values WBC 2.4 K/mm3 (4.0-10.0) L D 04/27/17 07:00 RBC 3.92 M/mm3 (4.00-5.60) L 04/27/17 07:00 Hgb 12.6 GM/dL (11.7-16.9) D 04/27/17 07:00 Hct 38.8 % (35.4-49) 04/27/17 07:00 MCV 99.1 fl (80-96) H 04/27/17 07:00 MCH 32.2 pg (25.7-33.7) 04/27/17 07:00 MCHC 32.4 g/dl (32.0-35.9) 04/27/17 07:00 RDW 16.7 % (11.9-15.9) H 04/27/17 07:00 Plt Count 177 K/MM3 (134-434) 04/27/17 07:00 MPV 8.6 fl (7.5-11.1) 04/27/17 07:00 Sodium 141 mmol/L (136-145) 04/27/17 07:00 Potassium 3.6 mmol/L (3.5-5.1) 04/27/17 07:00 Chloride 107 mmol/L (98-107) 04/27/17 07:00 Assessment: 04/27/17 10:17 WITHDRAWAL SX Plan: CONTINUE DETOX BACITRACIN OINTMENT DIRECTED.
[2017-04-27 10:19] LABS: ALBUMIN 3.1 g/dl (3.4-5.0); ALK PHOS 69 U/L (45-117); ANION GAP 8 (8-16); BILIRUBIN,TOTAL 0.5 mg/dL (0.2-1.0); CALCIUM 7.6 mg/dL (8.5-10.1); CO2 26 mmol/L (21-32); CREATININE 0.8 mg/dL (0.7-1.3); GLUCOSE,RANDOM 56 mg/dL (74-106); SGOT/AST 32 U/L (15-37); SGPT/ALT 32 U/L (12-78); TOT PROT 6.7 g/dl (6.4-8.2)
[2017-04-27] MEDS: ASPIRIN 81 MG CHEWABLE TABLETS PO SCH (10:21)
[2017-04-27] MEDS: amLODIPine BESYLATE 5 MG TABLET (FP) PO SCH (10:21)
[2017-04-27] MEDS: PRENATAL VITAMINS W/ FOLIC ACID TABLET (FP) PO SCH (10:21)
[2017-04-27] MEDS: PANTOPRAZOLE 40 MG TABLET (FP) PO SCH (10:21)
[2017-04-27] MEDS: NICOTINE 14 MG/24 HOURS TOPICAL PATCH TD SCH (10:21)
--- NOTE | 2017-04-27 10:36 | PN ---
[facility] CIWA - CIWA Score Nausea/Vomitin-No Nausea/No Vomiting Muscle Tremors: 4-Moderate,w/Arms Extend Anxiety: 4-Mod. Anxious/Guarded Agitation: 4-Moderately Restless Paroxysmal Sweats: 1-Minimal Palms Moist Orientation: 0-Oriented Tacttile Disturbances: 3-Moderate Itch/Numb/Burn Auditory Disturbances: 0-None Visual Disturbances: 0-None Headache: 0-None Present CIWA-Ar Total Score: 16 [facility] Progress Note (SOAP) Subjective: ANXIETY,SWEATS Objective: 04/27/17 10:36 Vital Signs Temperature 98.0 F 04/27/17 10:00 Pulse Rate 72 04/27/17 10:00 Respiratory Rate 18 04/27/17 10:00 Blood Pressure 129/72 04/27/17 10:00 O2 Sat by Pulse Oximetry (%) Laboratory Last Values WBC 2.4 K/mm3 (4.0-10.0) L D 04/27/17 07:00 RBC 3.92 M/mm3 (4.00-5.60) L 04/27/17 07:00 Hgb 12.6 GM/dL (11.7-16.9) D 04/27/17 07:00 Hct 38.8 % (35.4-49) 04/27/17 07:00 MCV 99.1 fl (80-96) H 04/27/17 07:00 MCH 32.2 pg (25.7-33.7) 04/27/17 07:00 MCHC 32.4 g/dl (32.0-35.9) 04/27/17 07:00 RDW 16.7 % (11.9-15.9) H 04/27/17 07:00 Plt Count 177 K/MM3 (134-434) 04/27/17 07:00 MPV 8.6 fl (7.5-11.1) 04/27/17 07:00 Sodium 141 mmol/L (136-145) 04/27/17 07:00 Potassium 3.6 mmol/L (3.5-5.1) 04/27/17 07:00 Chloride 107 mmol/L (98-107) 04/27/17 07:00 Carbon Dioxide 26 mmol/L (21-32) 04/27/17 07:00 Anion Gap 8 (8-16) 04/27/17 07:00 BUN 12 mg/dL (7-18) 04/27/17 07:00 Creatinine 0.8 mg/dL (0.7-1.3) 04/27/17 07:00 Creat Clearance w eGFR > 60 (>60) 04/27/17 07:00 Random Glucose 56 mg/dL (74-106) L D 04/27/17 07:00 Calcium 7.6 mg/dL (8.5-10.1) L 04/27/17 07:00 Total Bilirubin 0.5 mg/dL (0.2-1.0) D 04/27/17 07:00 AST 32 U/L (15-37) 04/27/17 07:00 ALT 32 U/L (12-78) 04/27/17 07:00 Alkaline Phosphatase 69 U/L (45-117) 04/27/17 07:00 Total Protein 6.7 g/dl (6.4-8.2) 04/27/17 07:00 Albumin 3.1 g/dl (3.4-5.0) L 04/27/17 07:00 Assessment: 04/27/17 10:37 WITHDRAWAL SX Plan: CONTINUE DETOX
[2017-04-27] MEDS: BACITRACIN 0.9 GM PACKET TP SCH ×2 (12:41→22:30)
[2017-04-27] MEDS: GABAPENTIN 300 MG CAPSULE (FP) PO SCH ×2 (14:29→22:31)
[2017-04-27 20:40] LABS: URINE APPEARANCE CLOUDY; URINE BILIRUBIN NEGATIVE (NEGATIVE); URINE BLOOD NEGATIVE (NEGATIVE); URINE COLOR YELLOW; URINE GLUCOSE (UA) NEGATIVE (NEGATIVE); URINE KETONE NEGATIVE (NEGATIVE); URINE NITRITE NEGATIVE (NEGATIVE); URINE PROTEIN NEGATIVE (NEGATIVE); URINE UROBILINOGEN 4.0 E.U/dl mg/dL (0.2-1.0)
[2017-04-27 21:28] LABS: URINE LEUK ESTERASE Negative (NEGATIVE)
[2017-04-27] MEDS ORDERED: PATIENT'S OWN MEDICATION (NON-FORMULARY) (Simvastatin 40 MG) PO SCH (22:00)
[2017-04-27] MEDS: ATORVASTATIN CA 20 MG TABLET (FP) PO SCH (22:31)
[2017-04-27] MEDS: THIAMINE HCL 100 MG TABLET (FP) PO SCH (22:31)
[2017-04-28] MEDS: P-EPHED 60MG/TRIPROLIDI 2.5MG TABLET PO PRN ×2 (04:00→17:39)
[2017-04-28] MEDS: chlordiazePOXIDE HCL 25 MG CAPSULE PO SCH ×4 (06:03→22:15)
[2017-04-28] MEDS: GABAPENTIN 300 MG CAPSULE (FP) PO SCH ×3 (06:03→22:14)
[2017-04-28] MEDS: PANTOPRAZOLE 40 MG TABLET (FP) PO SCH (10:04)
[2017-04-28] MEDS: PRENATAL VITAMINS W/ FOLIC ACID TABLET (FP) PO SCH (10:04)
[2017-04-28] MEDS: amLODIPine BESYLATE 5 MG TABLET (FP) PO SCH (10:04)
[2017-04-28] MEDS: ASPIRIN 81 MG CHEWABLE TABLETS PO SCH (10:04)
[2017-04-28] MEDS: NICOTINE 14 MG/24 HOURS TOPICAL PATCH TD SCH (10:04)
[2017-04-28] MEDS: BACITRACIN 0.9 GM PACKET TP SCH ×2 (10:05→22:14)
--- NOTE | 2017-04-28 15:24 | PN ---
[facility] CIWA - CIWA Score Nausea/Vomitin-No Nausea/No Vomiting Muscle Tremors: 3 Anxiety: 4-Mod. Anxious/Guarded Agitation: 3 Paroxysmal Sweats: 3 Orientation: 0-Oriented Tacttile Disturbances: 2-Mild Itch/Numbness/Burn Auditory Disturbances: 1-Very Mild Visual Disturbances: 2-Mild Sensitivity Headache: 0-None Present CIWA-Ar Total Score: 18 S Progress Note (SOAP) Subjective: Interrupted Sleep, Tremors, Anxious, Nasal Congestion, Body Aches. Objective: PT. A & O X 3, OBSERVED AMBULATING ON UNIT. NO ACUTE DISTRESS. 04/28/17 15:24 Vital Signs Temperature 96.4 F L 04/28/17 13:06 Pulse Rate 93 H 04/28/17 13:06 Respiratory Rate 18 04/28/17 13:06 Blood Pressure 134/77 04/28/17 13:06 O2 Sat by Pulse Oximetry (%) Laboratory Tests 04/27/17 04/27/17 04/27/17 07:00 07:00 07:00 WBC 2.4 L D RBC 3.92 L Hgb 12.6 D Hct 38.8 MCV 99.1 H MCH 32.2 MCHC 32.4 RDW 16.7 H Plt Count 177 MPV 8.6 Sodium 141 Potassium 3.6 Chloride 107 Carbon Dioxide 26 Anion Gap 8 BUN 12 Creatinine 0.8 Creat Clearance w eGFR > 60 Random Glucose 56 L D Calcium 7.6 L Total Bilirubin 0.5 D AST 32 ALT 32 Alkaline Phosphatase 69 Total Protein 6.7 Albumin 3.1 L Urine Color Urine Appearance Urine pH Ur Specific [place] Urine Protein Urine Glucose (UA) Urine Ketones Urine Blood Urine Nitrite Urine Bilirubin Urine Urobilinogen Ur Leukocyte Esterase RPR Titer Hepatitis C Antibody >11.0 H 04/27/17 04/27/17 07:00 20:15 WBC RBC Hgb Hct MCV MCH MCHC RDW Plt Count MPV Sodium Potassium Chloride Carbon Dioxide Anion Gap BUN Creatinine Creat Clearance w eGFR Random Glucose Calcium Total Bilirubin AST ALT Alkaline Phosphatase Total Protein Albumin Urine Color Yellow Urine Appearance Cloudy Urine pH 7.0 D Ur Specific [place] 1.020 Urine Protein Negative Urine Glucose (UA) Negative Urine Ketones Negative Urine Blood Negative Urine Nitrite Negative Urine Bilirubin Negative Urine Urobilinogen 4.0 e.u/dl Ur Leukocyte Esterase Negative RPR Titer Nonreactive Hepatitis C Antibody LABS NOTED. PATIENT HAS HISTORY OF HEPATITIS C (NO TREATMENT YET). PATIENT HAS HISTORY OF LOW WBC COUNT ON PREVIOUS ADMISSIONS. 04/28/17 15:26 Assessment: 04/28/17 15:24 WITHDRAWAL SYMPTOMS. Plan: CONTINUE DETOX. BGM ACBK TOMORROW FOR LOW ADMISSION RANDOM GLUCOSE LEVEL. INCREASE DAILY PO FLUID INTAKE.
[2017-04-28] MEDS: THIAMINE HCL 100 MG TABLET (FP) PO SCH (22:13)
[2017-04-28] MEDS: ATORVASTATIN CA 20 MG TABLET (FP) PO SCH (22:14)
[2017-04-29] MEDS: GABAPENTIN 300 MG CAPSULE (FP) PO SCH ×3 (05:30→22:13)
[2017-04-29] MEDS: chlordiazePOXIDE 5 MG CAPSULE PO SCH ×4 (05:31→22:57)
[2017-04-29] MEDS: PRENATAL VITAMINS W/ FOLIC ACID TABLET (FP) PO SCH (10:18)
[2017-04-29] MEDS: amLODIPine BESYLATE 5 MG TABLET (FP) PO SCH (10:18)
[2017-04-29] MEDS: PANTOPRAZOLE 40 MG TABLET (FP) PO SCH (10:18)
[2017-04-29] MEDS: BACITRACIN 0.9 GM PACKET TP SCH ×2 (10:18→22:13)
[2017-04-29] MEDS: ASPIRIN 81 MG CHEWABLE TABLETS PO SCH (10:18)
[2017-04-29] MEDS: NICOTINE 14 MG/24 HOURS TOPICAL PATCH TD SCH (10:19)
--- NOTE | 2017-04-29 12:07 | PN ---
[facility] CIWA - CIWA Score Nausea/Vomitin-Mild Nausea/No Vomiting Muscle Tremors: 3 Anxiety: 3 Agitation: 3 Paroxysmal Sweats: 3 Orientation: 0-Oriented Tacttile Disturbances: 0-None Auditory Disturbances: 0-None Visual Disturbances: 0-None Headache: 2-Mild CIWA-Ar Total Score: 15 [facility] Progress Note (SOAP) Subjective: Headache, sweating, nausea Objective: 04/29/17 12:06 Last Vital Signs Temp Pulse Resp BP Pulse Ox 96.1 F L 85 18 140/88 04/29/17 06:21 04/29/17 06:21 04/29/17 06:21 04/29/17 06:21 Laboratory Tests 04/27/17 04/27/17 04/27/17 07:00 07:00 07:00 WBC 2.4 L D RBC 3.92 L Hgb 12.6 D Hct 38.8 MCV 99.1 H MCH 32.2 MCHC 32.4 RDW 16.7 H Plt Count 177 MPV 8.6 Sodium 141 Potassium 3.6 Chloride 107 Carbon Dioxide 26 Anion Gap 8 BUN 12 Creatinine 0.8 Creat Clearance w eGFR > 60 POC Glucometer Random Glucose 56 L D Calcium 7.6 L Total Bilirubin 0.5 D AST 32 ALT 32 Alkaline Phosphatase 69 Total Protein 6.7 Albumin 3.1 L Urine Color Urine Appearance Urine pH Ur Specific [place] Urine Protein Urine Glucose (UA) Urine Ketones Urine Blood Urine Nitrite Urine Bilirubin Urine Urobilinogen Ur Leukocyte Esterase RPR Titer Hepatitis C Antibody >11.0 H 04/27/17 04/27/17 04/29/17 07:00 20:15 05:29 WBC RBC Hgb Hct MCV MCH MCHC RDW Plt Count MPV Sodium Potassium Chloride Carbon Dioxide Anion Gap BUN Creatinine Creat Clearance w eGFR POC Glucometer 103 Random Glucose Calcium Total Bilirubin AST ALT Alkaline Phosphatase Total Protein Albumin Urine Color Yellow Urine Appearance Cloudy Urine pH 7.0 D Ur Specific [place] 1.020 Urine Protein Negative Urine Glucose (UA) Negative Urine Ketones Negative Urine Blood Negative Urine Nitrite Negative Urine Bilirubin Negative Urine Urobilinogen 4.0 e.u/dl Ur Leukocyte Esterase Negative RPR Titer Nonreactive Hepatitis C Antibody Labs noted Assessment: 04/29/17 12:07 Withdrawal symptoms Plan: Continue detox Encouraged to drink lots of water
[2017-04-29] MEDS: THIAMINE HCL 100 MG TABLET (FP) PO SCH (22:12)
[2017-04-29] MEDS: ATORVASTATIN CA 20 MG TABLET (FP) PO SCH (22:13)
[2017-04-30] MEDS: GABAPENTIN 300 MG CAPSULE (FP) PO SCH ×3 (05:02→22:12)
[2017-04-30] MEDS: chlordiazePOXIDE HCL 10 MG CAPSULE PO SCH ×4 (06:28→22:12)
[2017-04-30] MEDS: ASPIRIN 81 MG CHEWABLE TABLETS PO SCH (10:08)
[2017-04-30] MEDS: PRENATAL VITAMINS W/ FOLIC ACID TABLET (FP) PO SCH (10:08)
[2017-04-30] MEDS: NICOTINE 14 MG/24 HOURS TOPICAL PATCH TD SCH (10:08)
[2017-04-30] MEDS: PANTOPRAZOLE 40 MG TABLET (FP) PO SCH (10:08)
[2017-04-30] MEDS: amLODIPine BESYLATE 5 MG TABLET (FP) PO SCH (10:08)
[2017-04-30] MEDS: BACITRACIN 0.9 GM PACKET TP SCH ×2 (10:08→22:12)
--- NOTE | 2017-04-30 13:25 | PN ---
[facility] Progress Note (SOAP) Subjective: Fatigue, Tremors, H/A, Body Aches. Pt. reporting discomfort at lateral aspect of Left Knee for last approx. 5 days after having a fall. Objective: PT. A & O X 3, OBSERVED AMBULATING ON UNIT. NO ACUTE DISTRESS. 04/30/17 13:21 Vital Signs Temperature 96.1 F L 04/30/17 09:43 Pulse Rate 96 H 04/30/17 09:43 Respiratory Rate 18 04/30/17 09:43 Blood Pressure 113/79 04/30/17 09:43 O2 Sat by Pulse Oximetry (%) Laboratory Tests 04/27/17 04/27/17 04/27/17 07:00 07:00 07:00 WBC 2.4 L D RBC 3.92 L Hgb 12.6 D Hct 38.8 MCV 99.1 H MCH 32.2 MCHC 32.4 RDW 16.7 H Plt Count 177 MPV 8.6 Sodium 141 Potassium 3.6 Chloride 107 Carbon Dioxide 26 Anion Gap 8 BUN 12 Creatinine 0.8 Creat Clearance w eGFR > 60 POC Glucometer Random Glucose 56 L D Calcium 7.6 L Total Bilirubin 0.5 D AST 32 ALT 32 Alkaline Phosphatase 69 Total Protein 6.7 Albumin 3.1 L Urine Color Urine Appearance Urine pH Ur Specific [place] Urine Protein Urine Glucose (UA) Urine Ketones Urine Blood Urine Nitrite Urine Bilirubin Urine Urobilinogen Ur Leukocyte Esterase RPR Titer Hepatitis C Antibody >11.0 H 04/27/17 04/27/17 04/29/17 07:00 20:15 05:29 WBC RBC Hgb Hct MCV MCH MCHC RDW Plt Count MPV Sodium Potassium Chloride Carbon Dioxide Anion Gap BUN Creatinine Creat Clearance w eGFR POC Glucometer 103 Random Glucose Calcium Total Bilirubin AST ALT Alkaline Phosphatase Total Protein Albumin Urine Color Yellow Urine Appearance Cloudy Urine pH 7.0 D Ur Specific [place] 1.020 Urine Protein Negative Urine Glucose (UA) Negative Urine Ketones Negative Urine Blood Negative Urine Nitrite Negative Urine Bilirubin Negative Urine Urobilinogen 4.0 e.u/dl Ur Leukocyte Esterase Negative RPR Titer Nonreactive Hepatitis C Antibody 04/30/17 05:01 WBC RBC Hgb Hct MCV MCH MCHC RDW Plt Count MPV Sodium Potassium Chloride Carbon Dioxide Anion Gap BUN Creatinine Creat Clearance w eGFR POC Glucometer 118 Random Glucose Calcium Total Bilirubin AST ALT Alkaline Phosphatase Total Protein Albumin Urine Color Urine Appearance Urine pH Ur Specific [place] Urine Protein Urine Glucose (UA) Urine Ketones Urine Blood Urine Nitrite Urine Bilirubin Urine Urobilinogen Ur Leukocyte Esterase RPR Titer Hepatitis C Antibody LABS NOTED. X-RAY OF LEFT KNEE ORDERED. RESULT NOTED. 04/30/17 13:23 Assessment: 04/30/17 13:21 WITHDRAWAL SYMPTOMS. Plan: CONTINUE DETOX. INCREASE DAILY PO FLUID INTAKE. ICE PACK, IBUPROFEN PRN FOR LEFT KNEE PAIN.
[2017-04-30] MEDS: THIAMINE HCL 100 MG TABLET (FP) PO SCH (22:12)
[2017-04-30] MEDS: ATORVASTATIN CA 20 MG TABLET (FP) PO SCH (22:12)
--- NOTE | 2017-04-30 23:56 | PN ---
[facility] Progress Note Note: received nurse call that the patient refuses librium 10 mg one dose today
[2017-05-01] MEDS: GABAPENTIN 300 MG CAPSULE (FP) PO SCH (05:50)
[2017-05-01] MEDS: ASPIRIN 81 MG CHEWABLE TABLETS PO SCH (09:37)
[2017-05-01] MEDS: PANTOPRAZOLE 40 MG TABLET (FP) PO SCH (09:37)
[2017-05-01] MEDS: BACITRACIN 0.9 GM PACKET TP SCH (09:37)
[2017-05-01] MEDS: PRENATAL VITAMINS W/ FOLIC ACID TABLET (FP) PO SCH (09:37)
[2017-05-01] MEDS: amLODIPine BESYLATE 5 MG TABLET (FP) PO SCH (09:37)
[2017-05-01] MEDS: NICOTINE 14 MG/24 HOURS TOPICAL PATCH TD SCH (09:38)
[2017-05-01 09:44] VITALS: BP 148/88; PULSE 87; TEMP 96.2
--- NOTE | 2017-05-01 17:20 | DS ---
[facility] Detox Discharge Summary Admission Date: 04/27/17 Discharge Date: 05/01/17 - History Present History: Alcohol Dependence Additional Comments: PATIENT OFFERED ASSISTANCE WITH FOLLOW-UP CARE; HOWEVER, PATIENT DECLINED SUGGESTIONS PROVIDED BY COUNSELOR. PATIENT ADVISED TO CONSIDER LOCAL 12-STEP / AA OUTPATIENT SUPPORT GROUP MEETINGS FOR AFTERCARE. COPIES OF ALL LABWORK DRAWN AND COPY OF X-RAY REPORT OF LEFT KNEE DONE WHILE ADMITTED FOR DETOX GIVEN TO PATIENT AT TIME OF DISCHARGE. PATIENT WAS DISCHARGED FROM DETOX UNIT IN STABLE MEDICAL CONDITION. Pertinent Past History: HTN, Hep C, Nicotine Dependence, GERD. - Physical Exam Results Vital Signs: Vital Signs Temperature 96.2 F L 05/01/17 09:43 Pulse Rate 87 05/01/17 09:43 Respiratory Rate 18 05/01/17 09:43 Blood Pressure 148/88 05/01/17 09:43 O2 Sat by Pulse Oximetry (%) Pertinent Admission Physical Exam Findings: WITHDRAWAL SYMPTOMS. Laboratory Tests 04/27/17 04/27/17 04/27/17 07:00 07:00 07:00 WBC 2.4 L D RBC 3.92 L Hgb 12.6 D Hct 38.8 MCV 99.1 H MCH 32.2 MCHC 32.4 RDW 16.7 H Plt Count 177 MPV 8.6 Sodium 141 Potassium 3.6 Chloride 107 Carbon Dioxide 26 Anion Gap 8 BUN 12 Creatinine 0.8 Creat Clearance w eGFR > 60 POC Glucometer Random Glucose 56 L D Calcium 7.6 L Total Bilirubin 0.5 D AST 32 ALT 32 Alkaline Phosphatase 69 Total Protein 6.7 Albumin 3.1 L Urine Color Urine Appearance Urine pH Ur Specific [place] Urine Protein Urine Glucose (UA) Urine Ketones Urine Blood Urine Nitrite Urine Bilirubin Urine Urobilinogen Ur Leukocyte Esterase RPR Titer Hepatitis C Antibody >11.0 H 04/27/17 04/27/17 04/29/17 07:00 20:15 05:29 WBC RBC Hgb Hct MCV MCH MCHC RDW Plt Count MPV Sodium Potassium Chloride Carbon Dioxide Anion Gap BUN Creatinine Creat Clearance w eGFR POC Glucometer 103 Random Glucose Calcium Total Bilirubin AST ALT Alkaline Phosphatase Total Protein Albumin Urine Color Yellow Urine Appearance Cloudy Urine pH 7.0 D Ur Specific [place] 1.020 Urine Protein Negative Urine Glucose (UA) Negative Urine Ketones Negative Urine Blood Negative Urine Nitrite Negative Urine Bilirubin Negative Urine Urobilinogen 4.0 e.u/dl Ur Leukocyte Esterase Negative RPR Titer Nonreactive Hepatitis C Antibody 04/30/17 05/01/17 05:01 05:49 WBC RBC Hgb Hct MCV MCH MCHC RDW Plt Count MPV Sodium Potassium Chloride Carbon Dioxide Anion Gap BUN Creatinine Creat Clearance w eGFR POC Glucometer 118 98 Random Glucose Calcium Total Bilirubin AST ALT Alkaline Phosphatase Total Protein Albumin Urine Color Urine Appearance Urine pH Ur Specific [place] Urine Protein Urine Glucose (UA) Urine Ketones Urine Blood Urine Nitrite Urine Bilirubin Urine Urobilinogen Ur Leukocyte Esterase RPR Titer Hepatitis C Antibody LABS NOTED. - Treatment Hospital Course: Detox Protocol Followed, Detoxed Safely, Responded well, Discharged Condition Good Patient has Accepted a Rehab Referral to: PT DECLINED. PT ADVISED TO CONSIDER 12 -STEP/AA SUPPORT GROUP MEETINGS. - Medication Discharge Medications: Ambulatory Orders Gabapentin [Neurontin -] 600 mg PO TID 08/17/16 Atorvastatin Ca [Lipitor] 20 mg PO HS #30 tablet 11/20/16 Amlodipine Besylate [Norvasc -] 5 mg PO DAILY #30 tablet 02/08/17 Aspirin [ASA -] 81 mg PO DAILY #30 tab 02/08/17 Gabapentin [Neurontin -] 800 mg PO TID #90 cap 02/08/17 Pantoprazole Sodium [Protonix -] 40 mg PO DAILY #30 tab 02/08/17 Simvastatin [Zocor -] 40 mg PO HS #30 tablet 02/08/17 - Diagnosis (1) Alcohol dependence with uncomplicated withdrawal Status: Acute (2) Essential hypertension Status: Chronic (3) Gastroesophageal reflux disease Status: Chronic (4) Hepatitis C Status: Chronic Qualifiers: Viral hepatitis chronicity: chronic Hepatic coma status: without hepatic coma Qualified Code(s): B18.2 - Chronic viral hepatitis C (5) Nicotine dependence Status: Chronic Qualifiers: Nicotine product type: cigarettes Substance use status: in withdrawal Qualified Code(s): F17.213 - Nicotine dependence, cigarettes, with withdrawal - AMA Did Patient Leave Against Medical Advice: No
== END 2017-05-01 13:48 | disposition home or self-care (01) | DRG 897 ==
LOC: YASAS 01:10 → Y3N 02:11
PROVIDERS: ADMIT Internal Medicine; ATTEND Internal Medicine
PROC: HZ2ZZZZ Detoxification Services for Substance Abuse Treatment (ICD-10-PCS; principal; 2017-04-27)
DX: F11.20 Opioid dependence, uncomplicated (principal); F14.20 Cocaine dependence, uncomplicated; F17.213 Nicotine dependence, cigarettes, with withdrawal; F10.20 Alcohol dependence, uncomplicated; F12.20 Cannabis dependence, uncomplicated; F22 Delusional disorders; I10 Essential (primary) hypertension; K21.9 Gastro-esophageal reflux disease without esophagitis; B18.2 Chronic viral hepatitis C; Z89.422 Acquired absence of other left toe(s); R63.4 Abnormal weight loss; Z68.25 Body mass index [BMI] 25.0-25.9, adult
CPT/HCPCS: 36415; 73562-TC-LT; 80053; 81003; 85027; 86593; 86803; 87522; 93005; 93010

== ENCOUNTER 2017-06-16 00:11 | Emergency (ER) | payer OTHER ==
[2017-06-16 00:57] VITALS: BMI 19.3
--- NOTE | 2017-06-16 01:11 | PDOC ---
History of Present Illness - General Chief Complaint: Alcohol intoxication Stated Complaint: INTOX Time Seen by Provider: 06/16/17 01:09 History Source: Patient Exam Limitations: No Limitations - History of Present Illness Initial Comments: 06/16/17 05:04 72-year-old male tieraa with a history of alcohol abuse presents to the emergency department without any complaints. Patient denies headache, dizziness, lightheadedness, facial pain, cough, neck pain/stiffness, back pains, chest pain , shortness of breath, abdominal pains, flank pains, urinary symptoms. Patient states he drank "a whole lot of alcohol" this evening. Patient is requesting for alcohol detox. Past History - Past Medical History Allergies/Adverse Reactions: Allergies Allergy/AdvReac Type Severity Reaction Status Date / Time No Known Allergies Allergy Verified 06/16/17 06:57 Home Medications: Ambulatory Orders Gabapentin [Neurontin -] 600 mg PO TID 08/17/16 Atorvastatin Ca [Lipitor] 20 mg PO HS #30 tablet 11/20/16 Amlodipine Besylate [Norvasc -] 5 mg PO DAILY #30 tablet 02/08/17 Aspirin [ASA -] 81 mg PO DAILY #30 tab 02/08/17 Gabapentin [Neurontin -] 800 mg PO TID #90 cap 02/08/17 Pantoprazole Sodium [Protonix -] 40 mg PO DAILY #30 tab 02/08/17 Simvastatin [Zocor -] 40 mg PO HS #30 tablet 02/08/17 Anemia: No Asthma: No Cancer: No Cardiac Disorders: Yes CVA: No COPD: No CHF: No Dementia: No Diabetes: No GI Disorders: Yes (GERD) Disorders: No HTN: Yes Hypercholesterolemia: Yes (ON MED) Kidney Stones: No Liver Disease: Yes (Not on meds) Seizures: No Thyroid Disease: No - Surgical History Abdominal Surgery: No Appendectomy: No Cardiac Surgery: No Cholecystectomy: No Lung Surgery: No Neurologic Surgery: No Orthopedic Surgery: Yes (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,3RD,4TH,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.) - Reproductive History Testicular Surgery: No - Immunization History Immunization Up to Date: Yes - Suicide/Smoking/Psychosocial Hx Smoking Status: Yes Smoking History: Unknown if ever smoked Have you smoked in the past 12 months: No Number of Cigarettes Smoked Daily: 6 Cigars Per Day: 0 Information on smoking cessation initiated: No 'Breaking Loose' booklet given: 04/27/17 Hx Alcohol Use: No Drug/Substance Use Hx: No Substance Use Type: Alcohol Hx Substance Use Treatment: Yes ([facility]) Review of Systems - Review of Systems Able to Perform ROS?: Yes Comments:: 06/16/17 05:04 CONSTITUTIONAL: Absent: fever, chills, diaphoresis, generalized weakness, malaise, loss of appetite HEENT: Absent: rhinorrhea, nasal congestion, throat pain, throat swelling, difficulty swallowing, mouth swelling, ear pain, eye pain, visual Changes CARDIOVASCULAR: Absent: chest pain, loss of consciousness, palpitations, irregular heart rate, peripheral edema RESPIRATORY: Absent: cough, shortness of breath, dyspnea with exertion, orthopnea, wheezing, stridor, hemoptysis GASTROINTESTINAL: Absent: abdominal pain, abdominal distension, nausea, vomiting, diarrhea, constipation, melena, hematochezia GENITOURINARY: Absent: dysuria, frequency, urgency, hesitancy, hematuria, flank pain, genital pain MUSCULOSKELETAL: Absent: myalgia, arthralgia, joint swelling SKIN: Absent: rash, itching, pallor HEMATOLOGIC/IMMUNOLOGIC: Absent: easy bleeding, easy bruising, lymphadenopathy, frequent infections ENDOCRINE: Absent: unexplained weight gain, unexplained weight loss, heat intolerance, cold intolerance NEUROLOGIC: Absent: headache, focal weakness or paresthesias, dizziness, unsteady gait, seizure, mental status changes, bladder or bowel incontinence PSYCHIATRIC: Absent: anxiety, depression, suicidal or homicidal ideation, hallucinations. Is the patient limited [place] proficient: No *Physical Exam - Vital Signs Last Vital Signs Temp Pulse Resp BP Pulse Ox 97.5 F L 96 H 16 111/79 96 06/16/17 00:44 06/16/17 00:44 06/16/17 00:44 06/16/17 00:44 06/16/17 00:44 - Physical Exam Comments: 06/16/17 05:04 GENERAL: Well developed, well nourished. Awake and alert. No acute distress. HEENT: Normocephalic, atraumatic. PERRLA, EOMI. No conjunctival pallor. Sclera are non- icteric. Moist mucous membranes. Oropharynx is clear. NECK: Supple. Full ROM. No JVD. Carotid pulses 2+ and symmetric, without bruits. No thyromegaly. No lymphadenopathy. CARDIOVASCULAR: Regular rate and rhythm. No murmurs, rubs, or gallops. Distal pulses are 2+ and symmetric. PULMONARY: No evidence of respiratory distress. Lungs clear to auscultation bilaterally. No wheezing, rales or rhonchi. ABDOMINAL: Soft. Non-tender. Non-distended. No rebound or guarding. No organomegaly. Normoactive bowel sounds. MUSCULOSKELETAL Normal range of motion at all joints. No bony deformities or tenderness. No CVA tenderness. EXTREMITIES: No cyanosis. No clubbing. No edema. No calf tenderness. SKIN: Warm and dry. Normal capillary refill. No rashes. No jaundice. NEUROLOGICAL: Alert, awake, appropriate. Cranial nerves 2-12 intact. No deficits to light touch and temperature in face, upper extremities and lower extremities. No motor deficits in the in face, upper extremities and lower extremities. Normoreflexic in the upper and lower extremities. Normal speech. Toes are down- going bilaterally. Gait is normal without ataxia. PSYCHIATRIC: Cooperative. Good eye contact. Appropriate mood and affect. ED Treatment Course - LABORATORY CBC & Chemistry Diagram: 06/16/17 02:17 06/16/17 02:17 Medical Decision Making - Medical Decision Making 06/16/17 03:03 72 M with presents to ER with ETOH intoxication. No signs of trauma on exam. + Clinically intoxicated at this time. - Reassess 04/26/17 04:16 Pt re-evaluated, now awake, alert, tolerating PO. Will continue IV banana bag *DC/Admit/Observation/Transfer Diagnosis at time of Disposition: Alcohol intoxication - Discharge Dispostion Disposition: TRANSFER ACUTE CARE/OTHER HOSP Condition at time of disposition: Stable - Referrals - Patient Instructions Printed Discharge Instructions: DI for Alcohol Abuse Additional Instructions: To be transported to to [facility] for detox - Post Discharge Activity Progress Note - Progress Note Progress Note: 0700hrs: Sign out to TILE LAYER [place]/reassess
[2017-06-16] MEDS ORDERED: SODIUM CHLORIDE 1,000 ML IV STA (01:12)
[2017-06-16 02:28] LABS: EOS % 3.4 % (0-4.5); HEMATOCRIT 45.3 % (35.4-49); HEMOGLOBIN 14.9 GM/dL (11.7-16.9); LYMPH % 39.8 % (8-40); MCH 31.6 pg (25.7-33.7); MCHC 32.9 g/dl (32.0-35.9); MEAN CELL VOLUME 96.1 fl (80-96); MEAN PLT VOLUME 8.2 fl (7.5-11.1); MONO % 10.5 % (3.8-10.2); NEUT % 45.3 % (42.8-82.8); PLATELET COUNT 190 K/MM3 (134-434); RBC 4.71 M/mm3 (4.00-5.60); RDW 15.4 % (11.9-15.9); WHITE BLOOD COUNT 2.7 K/mm3 (4.0-10.0)
[2017-06-16 02:51] LABS: ALBUMIN 3.6 g/dl (3.4-5.0); ALK PHOS 84 U/L (45-117); ANION GAP 12 (8-16); BILIRUBIN,TOTAL 0.2 mg/dL (0.2-1.0); BLOOD UREA NITROGEN 9 mg/dL (7-18); CALCIUM 8.7 mg/dL (8.5-10.1); CHLORIDE 106 mmol/L (98-107); CO2 26 mmol/L (21-32); CREATININE 0.7 mg/dL (0.7-1.3); GLUCOSE,RANDOM 104 mg/dL (74-106); SGPT/ALT 101 U/L (12-78); SODIUM 144 mmol/L (136-145); TOT PROT 7.8 g/dl (6.4-8.2)
[2017-06-16 03:12] LABS: POTASSIUM 3.5 mmol/L (3.5-5.1); SGOT/AST 143 U/L (15-37)
[2017-06-16] MEDS ORDERED: FOLIC ACID INJECTION - 1 MG, THIAMINE HCL 100 MG, MULTIVIT INJECTION ADULT 10 ML in SOD... IVPB ONE (03:48)
[2017-06-16] MEDS ORDERED: chlordiazePOXIDE HCL 25 MG CAPSULE PO ONE (03:53)
[2017-06-16] MEDS ORDERED: chlordiazePOXIDE HCL 25 MG CAPSULE ONE (05:04)
--- NOTE | 2017-06-16 07:25 | PDOC ---
*Physical Exam - Vital Signs Last Vital Signs Temp Pulse Resp BP Pulse Ox 98.3 F 95 H 16 110/67 100 06/16/17 06:36 06/16/17 06:36 06/16/17 06:36 06/16/17 06:36 06/16/17 06:36 - Physical Exam Comments: 06/16/17 07:24 Received turnover fromSonia HAHN, Pt resting quietly. General Appearance: Yes: Nourished, Appropriately Dressed, Apparent Distress HEENT: positive: [place], Normal ENT Inspection, TMs Normal, Pharynx Normal Neck: positive: Supple. negative: Tender Respiratory/Chest: positive: Lungs Clear, Normal Breath Sounds Extremity: positive: Normal Capillary Refill, Normal Inspection Integumentary: positive: Dry, Warm, Pale Neurologic: positive: Fully Oriented, Alert, Normal Mood/Affect, Normal Response , Motor Strength 09/29 ED Treatment Course - LABORATORY CBC & Chemistry Diagram: 06/16/17 02:17 06/16/17 02:17 - ADDITIONAL ORDERS Additional order review: Laboratory Results 06/16/17 06/16/17 02:17 02:17 Sodium 144 Potassium 3.5 Chloride 106 Carbon Dioxide 26 Anion Gap 12 BUN 9 D Creatinine 0.7 Creat Clearance w eGFR > 60 Random Glucose 104 D Calcium 8.7 Total Bilirubin 0.2 D AST 143 H D ALT 101 H D Alkaline Phosphatase 84 D Total Protein 7.8 Albumin 3.6 Alcohol, Quantitative 322.4 H* 06/16/17 02:17 RBC 4.71 D MCV 96.1 H MCHC 32.9 RDW 15.4 MPV 8.2 Neutrophils % 45.3 D Lymphocytes % 39.8 Monocytes % 10.5 H Eosinophils % 3.4 Basophils % 1.0 - Medications Given in the ED: ED Medications Discontinued Medications Generic Name Dose Route Start Last Admin Trade Name Freq PRN Reason Stop Dose Admin Chlordiazepoxide HCl 25 mg 06/16/17 03:53 06/16/17 05:13 Librium - PO 06/16/17 03:54 25 mg ONCE ONE Administration Sodium Chloride 1,000 mls @ 1,000 mls/hr 06/16/17 01:12 06/16/17 02:21 Normal Saline - IV 06/16/17 02:11 1,000 mls/hr ASDIR STA Administration Progress Note - Progress Note Progress Note: Discussed case with Dr.Pierre Morales at [address] [facility] detox unit. [facility] has a male bed available and is willing to accept. Will make arrangements for transfer and patient updated to plan. *DC/Admit/Observation/Transfer Diagnosis at time of Disposition: Alcohol intoxication Qualifiers: Complication of substance-induced condition: with unspecified complication Qualified Code(s): F10.929 - Alcohol use, unspecified with intoxication, unspecified - Discharge Dispostion Disposition: TRANSFER ACUTE CARE/OTHER HOSP Condition at time of disposition: Stable Admit: No - Referrals - Patient Instructions Printed Discharge Instructions: DI for Alcohol Abuse Additional Instructions: To be transported to to [facility] for detox - Post Discharge Activity
[2017-06-16 09:19] VITALS: BP 113/78; PULSE 92; TEMP 98.6
== END 2017-06-16 09:19 | disposition short-term general hospital (02) ==
LOC: JER 00:11
PROC: 3E033GC Introduction of Other Therapeutic Substance into Peripheral Vein, Percutaneous Approach (ICD-10-PCS; principal; 2017-06-16)
PROC: 3E0337Z Introduction of Electrolytic and Water Balance Substance into Peripheral Vein, Percutaneous Approach (ICD-10-PCS; 2017-06-16)
DX: F10.120 Alcohol abuse with intoxication, uncomplicated (principal); Y90.8 Blood alcohol level of 240 mg/100 ml or more; I10 Essential (primary) hypertension; E78.00 Pure hypercholesterolemia, unspecified; K21.9 Gastro-esophageal reflux disease without esophagitis; K76.9 Liver disease, unspecified; Z79.82 Long term (current) use of aspirin; Z89.422 Acquired absence of other left toe(s); Z59.0 Homelessness
CPT/HCPCS: 36415; 80053; 80307; 85025; 96361; 96365; 96366; 99283-25

== ENCOUNTER 2017-06-16 12:09 | Inpatient (IN) | payer OTHER ==
[2017-06-16 13:24] VITALS: BMI 24.8
--- NOTE | 2017-06-16 16:54 | HP ---
CIWA Score - CIWA Score Nausea/Vomitin Muscle Tremors: 5 Anxiety: 4-Mod. Anxious/Guarded Agitation: 4-Moderately Restless Paroxysmal Sweats: 3 Orientation: 2-Disoriented Date<2 days Tacttile Disturbances: 1-Very Mild Itch/Numbness Auditory Disturbances: 0-None Visual Disturbances: 0-None Headache: 0-None Present CIWA-Ar Total Score: 22 Admission ROS BHS - HPI Chief Complaint: Withdrawal sx Allergies/Adverse Reactions: Allergies Allergy/AdvReac Type Severity Reaction Status Date / Time No Known Allergies Allergy Verified 06/16/17 06:57 History of Present Illness: 72 y/o man with a long hx. of alcoholism is admitted for detox. pt. has been in previous detox, denies significant sobriety. He was at [facility] ED last night, given IVF & MVI Exam Limitations: No Limitations - Ebola screening Have you traveled outside of the country in the last 21 days: No (N) Have you had contact with anyone from an Ebola affected area: No Have you been sick,other than usual withdrawal symptoms: No Do you have a fever: No - Review of Systems Constitutional: Diaphoresis EENT: reports: No Symptoms Reported Respiratory: reports: No Symptoms reported Cardiac: reports: No Symptoms Reported GI: reports: Nausea, Abdominal cramping : reports: No Symptoms Reported Musculoskeletal: reports: Back Pain (spinal stenosis), Joint Pain, Muscle Pain Integumentary: reports: Sweating Neuro: reports: Tingling, Tremors Endocrine: reports: No Symptoms Reported Hematology: reports: No Symptoms Reported Psychiatric: reports: No Sypmtoms Reported Other Systems: Reviewed and Negative Patient History - Patient Medical History Hx Anemia: No Hx Asthma: No Hx Chronic Obstructive Pulmonary Disease (COPD): No Hx Cancer: No Hx Cardiac Disorders: Yes Hx Congestive Heart Failure: No Hx Hypertension: Yes Hx Hypercholesterolemia: Yes (ON MED) Hx Pacemaker: No HX Cerebrovascular Accident: No Hx Seizures: No Hx Dementia: No Hx Diabetes: No Hx Gastrointestinal Disorders: Yes (GERD) Hx Liver Disease: Yes (Not on meds) Hx Genitourinary Disorders: No Hx Sexually Transmitted Disorders: No Hx Renal Disease (ESRD): No Hx Thyroid Disease: No Hx Human Immunodeficiency Virus (HIV): No Hx Hepatitis C: Yes (Not on Meds, needs treatment) Hx Depression: No Hx Suicide Attempt: No (Denies suicidal ideation) Hx Bipolar Disorder: No Hx Schizophrenia: No - Patient Surgical History Past Surgical History: Yes Hx Neurologic Surgery: No Hx Cataract Extraction: No Hx Cardiac Surgery: No Hx Lung Surgery: No Hx Breast Surgery: No Hx Breast Biopsy: No Hx Abdominal Surgery: No Hx Appendectomy: No Hx Cholecystectomy: No Hx Genitourinary Surgery: No Hx Section: No Hx Orthopedic Surgery: Yes (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,3RD,4TH,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.) Hx Hysterectomy: Yes (fx left elbow in 1975) Other Surgical History: incision and drainage of abscess left hand,PINS AND PLATE LEFT ELBOW Anesthesia Reaction: No - PPD History Previous Implant?: Yes Documented Results: Negative w/proof Implanted On Prior [facility] Admission?: Yes Date: 02/03/17 Results: 0 mm PPD to be Administered?: No - Smoking Cessation Smoking history: Current every day smoker Aproximately how many cigarettes per day: 6 Cigars Per Day: 0 Hx Chewing Tobacco Use: No Initiated information on smoking cessation: Yes 'Breaking Loose' booklet given: 06/16/17 - Substance & Tx. History Hx Alcohol Use: Yes Hx Substance Use: No Substance Use Type: Alcohol Hx Substance Use Treatment: Yes (Detox [facility] 04/2017) - Substances Abused Alcohol Route: Oral Frequency: Daily Amount used: yariel 2-3 pints Age of first use: 17 Date of Last Use: 06/15/17 Family Disease History - Family Disease History Family Disease History: Heart Disease: Father ( OF [place]), Sister ([place] X 1), Other: Mother (THUY GEHRIG DISEASE, ) Admission Physical Exam [facility] - Vital Signs Vital Signs: Vital Signs - 24 hr 06/16/17 13:22 Temperature 97.5 F L Pulse Rate 128 H Respiratory 18 Rate Blood Pressure 160/107 - Physical General Appearance: Yes: Alcohol on Breath, Tremorous, Irritable, Sweating, Anxious HEENTM: Yes: Within Normal Limits Respiratory: Yes: Chest Non-Tender, Lungs Clear, Normal Breath Sounds Neck: Yes: Supple Breast: Yes: Breast Exam Deferred Cardiology: Yes: Regular Rhythm, Regular Rate, S1, S2 Abdominal: Yes: Normal Bowel Sounds, Non Tender Genitourinary: Yes: Within Normal Limits Back: Yes: Within Normal Limits Musculoskeletal: Yes: Within Normal Limits Extremities: Yes: Tremors Neurological: Yes: Fully Oriented, Alert Integumentary: Yes: Diaphoresis Lymphatic: Yes: Within Normal Limits - Diagnostic (1) Alcohol dependence with uncomplicated withdrawal Current Visit: Yes Status: Acute (2) Essential hypertension Current Visit: Yes Status: Chronic (3) Gastroesophageal reflux disease Current Visit: No Status: Chronic (4) Hepatitis C Current Visit: No Status: Chronic Qualifiers: Viral hepatitis chronicity: chronic Hepatic coma status: without hepatic coma Qualified Code(s): B18.2 - Chronic viral hepatitis C (5) hypercholesterolemia Current Visit: No Status: Chronic Cleared for Admission [facility] - Detox or Rehab [facility] Level of Care: Medically Managed Detox Regimen/Protocol: Librium [facility] Breath Alcohol Content Breath Alcohol Content: 0.061 Urine Drug Screen - Results Drug Screen Negative: No Urine Drug Screen Results: BZO-Benzodiazepines
[2017-06-16] MEDS ORDERED: chlordiazePOXIDE HCL 25 MG CAPSULE PO PRN (17:06)
[2017-06-16] MEDS ORDERED: chlordiazePOXIDE HCL 25 MG CAPSULE PO ONE (17:06)
[2017-06-16] MEDS ORDERED: ACETAMINOPHEN 325 MG TABLET (FP) PO PRN (17:06)
[2017-06-16] MEDS ORDERED: MAGNESIUM HYDROX 2400MG/30ML ORAL SUSPENSION 30 ML CUP PO PRN (17:06)
[2017-06-16] MEDS ORDERED: MENTHOL/PHENOL 1 EACH UD MM PRN (17:06)
[2017-06-16] MEDS ORDERED: P-EPHED 60MG/TRIPROLIDI 2.5MG TABLET PO PRN (17:06)
[2017-06-16] MEDS ORDERED: LOPERAMIDE HCL 2 MG CAPSULE PO PRN (17:06)
[2017-06-16] MEDS ORDERED: MAGNESIUM CITRATE 300 ML BOTTLE PO PRN (17:06)
[2017-06-16] MEDS ORDERED: NICOTINE POLACRILEX 2 MG GUM BC PRN (17:06)
[2017-06-16] MEDS ORDERED: MAG HYDROX/AL HYDROX/SIMETH 30 ML UNIT-DOSE CUP PO PRN (17:06)
[2017-06-16] MEDS ORDERED: IBUPROFEN 400 MG TABLET (FP) PO PRN (17:06)
[2017-06-16] MEDS ORDERED: guaiFENesin/D-METHORPHAN HB 10 ML UNIT-DOSE CUPS PO PRN (17:06)
[2017-06-16] MEDS ORDERED: hydrOXYzine PAMOATE 50 MG CAPSULE (FP) PO PRN (17:06)
[2017-06-16] MEDS: amLODIPine BESYLATE 10 MG TABLET (FP) PO SCH (20:51)
[2017-06-16] MEDS: NICOTINE 14 MG/24 HOURS TOPICAL PATCH TD SCH (20:52)
[2017-06-16] MEDS: THIAMINE HCL 100 MG TABLET (FP) PO SCH (22:51)
[2017-06-16] MEDS: ATORVASTATIN CA 20 MG TABLET (FP) PO SCH (22:51)
[2017-06-16] MEDS: GABAPENTIN 300 MG CAPSULE (FP) PO SCH (22:51)
[2017-06-16] MEDS: chlordiazePOXIDE HCL 25 MG CAPSULE PO SCH (22:51)
[2017-06-17] MEDS: chlordiazePOXIDE HCL 25 MG CAPSULE PO SCH ×4 (05:35→22:20)
[2017-06-17] MEDS ORDERED: FUROSEMIDE 20 MG TABLET (FP) PO SCH (10:00)
[2017-06-17] MEDS: ASPIRIN COATED 81 MG TABLET.EC PO SCH (10:08)
[2017-06-17] MEDS: amLODIPine BESYLATE 10 MG TABLET (FP) PO SCH (10:08)
[2017-06-17] MEDS: PRENATAL VITAMINS W/ FOLIC ACID TABLET (FP) PO SCH (10:08)
[2017-06-17] MEDS: GABAPENTIN 300 MG CAPSULE (FP) PO SCH ×2 (10:08→22:20)
[2017-06-17] MEDS: NICOTINE 14 MG/24 HOURS TOPICAL PATCH TD SCH (10:09)
[2017-06-17 10:26] LABS: HEMATOCRIT 42.7 % (35.4-49); HEMOGLOBIN 13.9 GM/dL (11.7-16.9); MCH 31.6 pg (25.7-33.7); MCHC 32.7 g/dl (32.0-35.9); MEAN CELL VOLUME 96.8 fl (80-96); MEAN PLT VOLUME 8.7 fl (7.5-11.1); PLATELET COUNT 163 K/MM3 (134-434); RBC 4.41 M/mm3 (4.00-5.60); RDW 15.7 % (11.9-15.9); WHITE BLOOD COUNT 3.1 K/mm3 (4.0-10.0)
[2017-06-17 10:39] LABS: CHLORIDE 103 mmol/L (98-107); POTASSIUM 3.3 mmol/L (3.5-5.1); SODIUM 141 mmol/L (136-145)
[2017-06-17 10:49] LABS: ALBUMIN 3.6 g/dl (3.4-5.0); ALK PHOS 72 U/L (45-117); ANION GAP 9 (8-16); BILIRUBIN,TOTAL 1.1 mg/dL (0.2-1.0); BLOOD UREA NITROGEN 13 mg/dL (7-18); CALCIUM 8.5 mg/dL (8.5-10.1); CO2 29 mmol/L (21-32); CREATININE 0.8 mg/dL (0.7-1.3); GLUCOSE,RANDOM 92 mg/dL (74-106); SGOT/AST 100 U/L (15-37); SGPT/ALT 79 U/L (12-78); TOT PROT 7.5 g/dl (6.4-8.2); URINE APPEARANCE CLEAR; URINE BILIRUBIN NEGATIVE (NEGATIVE); URINE BLOOD NEGATIVE (NEGATIVE); URINE COLOR LTYELLOW; URINE GLUCOSE (UA) NEGATIVE (NEGATIVE); URINE KETONE NEGATIVE (NEGATIVE); URINE LEUK ESTERASE NEGATIVE (NEGATIVE); URINE NITRITE NEGATIVE (NEGATIVE); URINE PROTEIN NEGATIVE (NEGATIVE); URINE UROBILINOGEN NEGATIVE mg/dL (0.2-1.0)
--- NOTE | 2017-06-17 11:49 | PN ---
[facility] CIWA - CIWA Score Nausea/Vomitin-Mild Nausea/No Vomiting Muscle Tremors: 4-Moderate,w/Arms Extend Anxiety: 4-Mod. Anxious/Guarded Agitation: 4-Moderately Restless Paroxysmal Sweats: 1-Minimal Palms Moist Orientation: 0-Oriented Tacttile Disturbances: 2-Mild Itch/Numbness/Burn Auditory Disturbances: 0-None Visual Disturbances: 0-None Headache: 1-Very Mild CIWA-Ar Total Score: 17 BHS Progress Note (SOAP) Subjective: sweat tremor agitation anxiety Objective: 06/17/17 11:48 Vital Signs Temperature 96.3 F L 06/17/17 10:24 Pulse Rate 107 H 06/17/17 10:24 Respiratory Rate 16 06/17/17 10:24 Blood Pressure 138/90 06/17/17 10:24 O2 Sat by Pulse Oximetry (%) Laboratory Last Values WBC 3.1 K/mm3 (4.0-10.0) L 06/17/17 07:40 RBC 4.41 M/mm3 (4.00-5.60) 06/17/17 07:40 Hgb 13.9 GM/dL (11.7-16.9) 06/17/17 07:40 Hct 42.7 % (35.4-49) 06/17/17 07:40 MCV 96.8 fl (80-96) H 06/17/17 07:40 MCH 31.6 pg (25.7-33.7) 06/17/17 07:40 MCHC 32.7 g/dl (32.0-35.9) 06/17/17 07:40 RDW 15.7 % (11.9-15.9) 06/17/17 07:40 Plt Count 163 K/MM3 (134-434) 06/17/17 07:40 MPV 8.7 fl (7.5-11.1) 06/17/17 07:40 Sodium 141 mmol/L (136-145) 06/17/17 07:40 Potassium 3.3 mmol/L (3.5-5.1) L 06/17/17 07:40 Chloride 103 mmol/L (98-107) 06/17/17 07:40 Carbon Dioxide 29 mmol/L (21-32) 06/17/17 07:40 Anion Gap 9 (8-16) 06/17/17 07:40 BUN 13 mg/dL (7-18) D 06/17/17 07:40 Creatinine 0.8 mg/dL (0.7-1.3) 06/17/17 07:40 Creat Clearance w eGFR > 60 (>60) 06/17/17 07:40 Random Glucose 92 mg/dL (74-106) 06/17/17 07:40 Calcium 8.5 mg/dL (8.5-10.1) 06/17/17 07:40 Total Bilirubin 1.1 mg/dL (0.2-1.0) H D 06/17/17 07:40 AST 100 U/L (15-37) H D 06/17/17 07:40 ALT 79 U/L (12-78) H D 06/17/17 07:40 Alkaline Phosphatase 72 U/L (45-117) 06/17/17 07:40 Total Protein 7.5 g/dl (6.4-8.2) 06/17/17 07:40 Albumin 3.6 g/dl (3.4-5.0) 06/17/17 07:40 Urine Color Ltyellow 06/17/17 07:40 Urine Appearance Clear 06/17/17 07:40 Urine pH 7.0 (5.0-8.0) 06/17/17 07:40 Ur Specific [place] 1.011 (1.001-1.035) 06/17/17 07:40 Urine Protein Negative (NEGATIVE) 06/17/17 07:40 Urine Glucose (UA) Negative (NEGATIVE) 06/17/17 07:40 Urine Ketones Negative (NEGATIVE) 06/17/17 07:40 Urine Blood Negative (NEGATIVE) 06/17/17 07:40 Urine Nitrite Negative (NEGATIVE) 06/17/17 07:40 Urine Bilirubin Negative (NEGATIVE) 06/17/17 07:40 Urine Urobilinogen Negative mg/dL (0.2-1.0) 06/17/17 07:40 Ur Leukocyte Esterase Negative (NEGATIVE) 06/17/17 07:40 lab noted Assessment: 06/17/17 11:49 withdrawal sx Plan: continue detox
[2017-06-17] MEDS ORDERED: PNEUMOC 13-VAL CONJ-DIP CRM/PF 0.5 ML DISP.SYRIN IM ONE (12:00)
--- NOTE | 2017-06-17 12:52 | EKG ---
Test Reason : Blood Pressure : / mmHG Vent. Rate : 107 BPM Atrial Rate : 107 BPM P-R Int : 224 ms QRS Dur : 072 ms QT Int : 314 ms P-R-T Axes : 088 005 062 degrees QTc Int : 419 ms SINUS TACHYCARDIA OTHERWISE NORMAL ECG WHEN COMPARED WITH ECG OF 27-APR-2017 04:23, PREMATURE VENTRICULAR COMPLEXES ARE NOW PRESENT [place] INTERVAL HAS INCREASED CRITERIA FOR SEPTAL INFARCT ARE NO LONGER PRESENT Confirmed by Kirill Hoskins ([id number]) on 06/17/2017 12:52:18 PM Referred By: Confirmed By:Kirill Hoskins
[2017-06-17] MEDS: ATORVASTATIN CA 20 MG TABLET (FP) PO SCH (22:20)
[2017-06-17] MEDS: THIAMINE HCL 100 MG TABLET (FP) PO SCH (22:20)
[2017-06-17] MEDS: MINERAL OIL/PETROLAT/WATER TOPICAL CREAM 113 GM JAR TP SCH (22:20)
[2017-06-18] MEDS: CLOTRIMAZOLE 1% CREAM 15 GM TUBE TP SCH ×3 (00:30→22:26)
[2017-06-18] MEDS: chlordiazePOXIDE HCL 25 MG CAPSULE PO SCH ×3 (05:57→18:45)
--- NOTE | 2017-06-18 08:52 | EKG ---
Test Reason : Blood Pressure : / mmHG Vent. Rate : 087 BPM Atrial Rate : 087 BPM P-R Int : 144 ms QRS Dur : 084 ms QT Int : 368 ms P-R-T Axes : 063 008 063 degrees QTc Int : 442 ms POOR DATA QUALITY, INTERPRETATION MAY BE ADVERSELY AFFECTED NORMAL SINUS RHYTHM JUNCTIONAL ST DEPRESSION, PROBABLY NORMAL BORDERLINE ECG WHEN COMPARED WITH ECG OF 16-JUN-2017 19:13, NO SIGNIFICANT CHANGE WAS FOUND Confirmed by Kirill Hoskins ([id number]) on 06/18/2017 8:52:51 AM Referred By: Confirmed By:Kirill Hoskins
[2017-06-18] MEDS: GABAPENTIN 300 MG CAPSULE (FP) PO SCH ×2 (11:13→22:25)
[2017-06-18] MEDS: ASPIRIN COATED 81 MG TABLET.EC PO SCH (11:13)
[2017-06-18] MEDS: POTASSIUM CHLORIDE TABS 20 MEQ TABLET.ER (FP) PO SCH ×2 (11:13→22:26)
[2017-06-18] MEDS: PRENATAL VITAMINS W/ FOLIC ACID TABLET (FP) PO SCH (11:14)
[2017-06-18] MEDS: amLODIPine BESYLATE 10 MG TABLET (FP) PO SCH (11:14)
[2017-06-18] MEDS: NICOTINE 14 MG/24 HOURS TOPICAL PATCH TD SCH (11:14)
--- NOTE | 2017-06-18 12:06 | PN ---
S CIWA - CIWA Score Nausea/Vomitin Muscle Tremors: 4-Moderate,w/Arms Extend Anxiety: 4-Mod. Anxious/Guarded Agitation: 4-Moderately Restless Paroxysmal Sweats: 2 Orientation: 0-Oriented Tacttile Disturbances: 0-None Auditory Disturbances: 0-None Visual Disturbances: 0-None Headache: 0-None Present CIWA-Ar Total Score: 16 BHS Progress Note (SOAP) Subjective: tremors back pains sweats Objective: 06/18/17 12:03 Vital Signs Temperature 98.9 F 06/18/17 09:22 Pulse Rate 118 H 06/18/17 09:22 Respiratory Rate 18 06/18/17 09:22 Blood Pressure 137/84 06/18/17 09:22 O2 Sat by Pulse Oximetry (%) Laboratory Last Values WBC 3.1 K/mm3 (4.0-10.0) L 06/17/17 07:40 RBC 4.41 M/mm3 (4.00-5.60) 06/17/17 07:40 Hgb 13.9 GM/dL (11.7-16.9) 06/17/17 07:40 Hct 42.7 % (35.4-49) 06/17/17 07:40 MCV 96.8 fl (80-96) H 06/17/17 07:40 MCH 31.6 pg (25.7-33.7) 06/17/17 07:40 MCHC 32.7 g/dl (32.0-35.9) 06/17/17 07:40 RDW 15.7 % (11.9-15.9) 06/17/17 07:40 Plt Count 163 K/MM3 (134-434) 06/17/17 07:40 MPV 8.7 fl (7.5-11.1) 06/17/17 07:40 Sodium 141 mmol/L (136-145) 06/17/17 07:40 Potassium 3.3 mmol/L (3.5-5.1) L 06/17/17 07:40 Chloride 103 mmol/L (98-107) 06/17/17 07:40 Carbon Dioxide 29 mmol/L (21-32) 06/17/17 07:40 Anion Gap 9 (8-16) 06/17/17 07:40 BUN 13 mg/dL (7-18) D 06/17/17 07:40 Creatinine 0.8 mg/dL (0.7-1.3) 06/17/17 07:40 Creat Clearance w eGFR > 60 (>60) 06/17/17 07:40 Random Glucose 92 mg/dL (74-106) 06/17/17 07:40 Calcium 8.5 mg/dL (8.5-10.1) 06/17/17 07:40 Total Bilirubin 1.1 mg/dL (0.2-1.0) H D 06/17/17 07:40 AST 100 U/L (15-37) H D 06/17/17 07:40 ALT 79 U/L (12-78) H D 06/17/17 07:40 Alkaline Phosphatase 72 U/L (45-117) 06/17/17 07:40 Total Protein 7.5 g/dl (6.4-8.2) 06/17/17 07:40 Albumin 3.6 g/dl (3.4-5.0) 06/17/17 07:40 Urine Color Ltyellow 06/17/17 07:40 Urine Appearance Clear 06/17/17 07:40 Urine pH 7.0 (5.0-8.0) 06/17/17 07:40 Ur Specific [place] 1.011 (1.001-1.035) 06/17/17 07:40 Urine Protein Negative (NEGATIVE) 06/17/17 07:40 Urine Glucose (UA) Negative (NEGATIVE) 06/17/17 07:40 Urine Ketones Negative (NEGATIVE) 06/17/17 07:40 Urine Blood Negative (NEGATIVE) 06/17/17 07:40 Urine Nitrite Negative (NEGATIVE) 06/17/17 07:40 Urine Bilirubin Negative (NEGATIVE) 06/17/17 07:40 Urine Urobilinogen Negative mg/dL (0.2-1.0) 06/17/17 07:40 Ur Leukocyte Esterase Negative (NEGATIVE) 06/17/17 07:40 RPR Titer Nonreactive (NONREACTIVE) 06/17/17 07:40 labs noted, low K+ Assessment: 06/18/17 12:04 withdrawal sx No acute distress Plan: continue detox Potassium supplement hydrate well
[2017-06-18] MEDS: THIAMINE HCL 100 MG TABLET (FP) PO SCH (22:25)
[2017-06-18] MEDS: MINERAL OIL/PETROLAT/WATER TOPICAL CREAM 113 GM JAR TP SCH (22:26)
[2017-06-18] MEDS: chlordiazePOXIDE 5 MG CAPSULE PO SCH (22:26)
[2017-06-18] MEDS: ATORVASTATIN CA 20 MG TABLET (FP) PO SCH (22:26)
[2017-06-19] MEDS: chlordiazePOXIDE 5 MG CAPSULE PO SCH ×3 (05:42→18:24)
[2017-06-19] MEDS: ASPIRIN COATED 81 MG TABLET.EC PO SCH (10:05)
[2017-06-19] MEDS: PRENATAL VITAMINS W/ FOLIC ACID TABLET (FP) PO SCH (10:05)
[2017-06-19] MEDS: amLODIPine BESYLATE 10 MG TABLET (FP) PO SCH (10:05)
[2017-06-19] MEDS: CLOTRIMAZOLE 1% CREAM 15 GM TUBE TP SCH ×2 (10:05→22:48)
[2017-06-19] MEDS: GABAPENTIN 300 MG CAPSULE (FP) PO SCH ×2 (10:05→22:48)
[2017-06-19] MEDS: NICOTINE 14 MG/24 HOURS TOPICAL PATCH TD SCH (10:05)
--- NOTE | 2017-06-19 13:21 | PN ---
BHS Progress Note (SOAP) Subjective: poor sleep anxious shaky pain Objective: 06/19/17 13:20 Laboratory Tests 06/17/17 06/17/17 06/17/17 07:40 07:40 07:40 WBC 3.1 L RBC 4.41 Hgb 13.9 Hct 42.7 MCV 96.8 H MCH 31.6 MCHC 32.7 RDW 15.7 Plt Count 163 MPV 8.7 Sodium 141 Potassium 3.3 L Chloride 103 Carbon Dioxide 29 Anion Gap 9 BUN 13 D Creatinine 0.8 Creat Clearance w eGFR > 60 Random Glucose 92 Calcium 8.5 Total Bilirubin 1.1 H D AST 100 H D ALT 79 H D Alkaline Phosphatase 72 Total Protein 7.5 Albumin 3.6 Urine Color Urine Appearance Urine pH Ur Specific [place] Urine Protein Urine Glucose (UA) Urine Ketones Urine Blood Urine Nitrite Urine Bilirubin Urine Urobilinogen Ur Leukocyte Esterase RPR Titer Nonreactive 06/17/17 07:40 WBC RBC Hgb Hct MCV MCH MCHC RDW Plt Count MPV Sodium Potassium Chloride Carbon Dioxide Anion Gap BUN Creatinine Creat Clearance w eGFR Random Glucose Calcium Total Bilirubin AST ALT Alkaline Phosphatase Total Protein Albumin Urine Color Ltyellow Urine Appearance Clear Urine pH 7.0 Ur Specific [place] 1.011 Urine Protein Negative Urine Glucose (UA) Negative Urine Ketones Negative Urine Blood Negative Urine Nitrite Negative Urine Bilirubin Negative Urine Urobilinogen Negative Ur Leukocyte Esterase Negative RPR Titer Vital Signs - 24 hr 06/18/17 06/18/17 06/18/17 14:36 18:00 23:04 Temperature 96.3 F L 97.5 F L 99.7 F H Pulse Rate 104 H 86 100 H Respiratory 16 18 18 Rate Blood Pressure 122/74 127/74 97/82 06/19/17 06/19/17 06/19/17 00:30 03:30 06:00 Temperature 97.0 F L Pulse Rate 76 Respiratory 18 18 18 Rate Blood Pressure 131/69 06/19/17 09:33 Temperature 96.6 F L Pulse Rate 100 H Respiratory 16 Rate Blood Pressure 126/82 Assessment: 06/19/17 13:21 ongoing withdrawal Plan: cont detox protocol
[2017-06-19] MEDS: THIAMINE HCL 100 MG TABLET (FP) PO SCH (22:48)
[2017-06-19] MEDS: ATORVASTATIN CA 20 MG TABLET (FP) PO SCH (22:48)
[2017-06-19] MEDS: MINERAL OIL/PETROLAT/WATER TOPICAL CREAM 113 GM JAR TP SCH (22:49)
[2017-06-19] MEDS: chlordiazePOXIDE HCL 10 MG CAPSULE PO SCH (22:49)
[2017-06-20] MEDS: chlordiazePOXIDE HCL 10 MG CAPSULE PO SCH ×2 (05:58→10:13)
--- NOTE | 2017-06-20 08:55 | DS ---
[facility] Detox Discharge Summary Admission Date: 06/16/17 Discharge Date: 06/20/17 - History Present History: Alcohol Dependence, Cannabis Dependence, Cocaine Dependence - Physical Exam Results Vital Signs: Vital Signs Temperature 97.7 F 06/20/17 06:00 Pulse Rate 94 H 06/20/17 06:00 Respiratory Rate 18 06/20/17 06:00 Blood Pressure 127/94 06/20/17 06:00 O2 Sat by Pulse Oximetry (%) - Treatment Hospital Course: Detox Protocol Followed, Detoxed Safely, Responded well, Discharged Condition Good - Medication Discharge Medications: Ambulatory Orders Gabapentin [Neurontin -] 600 mg PO TID 08/17/16 Atorvastatin Ca [Lipitor] 20 mg PO HS #30 tablet 11/20/16 Amlodipine Besylate [Norvasc -] 5 mg PO DAILY #30 tablet 02/08/17 Aspirin [ASA -] 81 mg PO DAILY #30 tab 02/08/17 Gabapentin [Neurontin -] 800 mg PO TID #90 cap 02/08/17 Pantoprazole Sodium [Protonix -] 40 mg PO DAILY #30 tab 02/08/17 Simvastatin [Zocor -] 40 mg PO HS #30 tablet 02/08/17 - Diagnosis (1) Alcohol dependence with uncomplicated withdrawal Current Visit: Yes Status: Acute (2) Essential hypertension Current Visit: Yes Status: Chronic (3) Gastroesophageal reflux disease Current Visit: Yes Status: Chronic (4) Abrasion of knee, right Current Visit: No Status: Acute (5) Cannabis abuse Current Visit: No Status: Acute (6) Cocaine dependence, episodic Current Visit: No Status: Acute (7) Opioid dependence Current Visit: No Status: Resolved (8) Hepatitis C Current Visit: No Status: Chronic Qualifiers: Viral hepatitis chronicity: chronic Hepatic coma status: without hepatic coma Qualified Code(s): B18.2 - Chronic viral hepatitis C - AMA Did Patient Leave Against Medical Advice: No
[2017-06-20] MEDS: PRENATAL VITAMINS W/ FOLIC ACID TABLET (FP) PO SCH (10:12)
[2017-06-20] MEDS: GABAPENTIN 300 MG CAPSULE (FP) PO SCH (10:12)
[2017-06-20] MEDS: ASPIRIN COATED 81 MG TABLET.EC PO SCH (10:13)
[2017-06-20] MEDS: CLOTRIMAZOLE 1% CREAM 15 GM TUBE TP SCH (10:13)
[2017-06-20] MEDS: NICOTINE 14 MG/24 HOURS TOPICAL PATCH TD SCH (10:13)
[2017-06-20] MEDS: amLODIPine BESYLATE 10 MG TABLET (FP) PO SCH (10:13)
[2017-06-20 13:17] VITALS: BP 140/80; PULSE 88; TEMP 97.7
== END 2017-06-20 14:30 | disposition home or self-care (01) | DRG 897 ==
LOC: YASAS 12:09 → Y6N 17:24
PROVIDERS: ADMIT Internal Medicine; ATTEND Internal Medicine
PROC: HZ2ZZZZ Detoxification Services for Substance Abuse Treatment (ICD-10-PCS; principal; 2017-06-16)
DX: F10.230 Alcohol dependence with withdrawal, uncomplicated (principal); F14.20 Cocaine dependence, uncomplicated; F12.10 Cannabis abuse, uncomplicated; F17.210 Nicotine dependence, cigarettes, uncomplicated; I10 Essential (primary) hypertension; B18.2 Chronic viral hepatitis C; K21.9 Gastro-esophageal reflux disease without esophagitis; E78.00 Pure hypercholesterolemia, unspecified; Z89.422 Acquired absence of other left toe(s); Z87.898 Personal history of other specified conditions; Z59.0 Homelessness
CPT/HCPCS: 36415; 80053; 81003; 85027; 86593; 93005; 93010

== ENCOUNTER 2017-06-20 21:23 | Inpatient (IN) | payer OTHER ==
[2017-06-20 23:31] VITALS: TEMP 97.5; BMI 26.6
--- NOTE | 2017-06-21 00:19 | PDOC ---
History of Present Illness - General History Source: Old Records Exam Limitations: Intoxication (Alcohol) - History of Present Illness Initial Comments: 06/21/17 00:27 The patient is a 72 year old male brought via EMS, with a significant past medical history of HTN, HLD and GERD, who presents to the emergency department with alcohol intoxication. Unable to obtain a history due to the patient's intoxicated state. Upon presentation the patient seems to have a significant cold left foot, while the left femoral artery is intact. 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 Social history: Daily Alcohol use. Cigarette use. <Liam Reyes - Last Filed: 06/21/17 00:25> <Jeana Abdi - Last Filed: 06/21/17 01:46> - General Chief Complaint: Alcohol intoxication Stated Complaint: INTOX Time Seen by Provider: 06/21/17 00:07 Past History <Liam Reyes - Last Filed: 06/21/17 00:25> - Past Medical History Anemia: No Asthma: No Cancer: No Cardiac Disorders: Yes CVA: No COPD: No CHF: No Dementia: No Diabetes: No GI Disorders: Yes (GERD) Disorders: No HTN: Yes Hypercholesterolemia: Yes (ON MED) Kidney Stones: No Liver Disease: Yes (Not on meds) Seizures: No Thyroid Disease: No - Surgical History Abdominal Surgery: No Appendectomy: No Cardiac Surgery: No Cholecystectomy: No Lung Surgery: No Neurologic Surgery: No Orthopedic Surgery: Yes (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,3RD,4TH,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.) - Reproductive History Testicular Surgery: No - Immunization History Immunization Up to Date: Yes - Suicide/Smoking/Psychosocial Hx Smoking Status: Yes Smoking History: Current every day smoker Have you smoked in the past 12 months: Yes Number of Cigarettes Smoked Daily: 5 Cigars Per Day: 0 Information on smoking cessation initiated: No 'Breaking Loose' booklet given: 06/16/17 Hx Alcohol Use: Yes Drug/Substance Use Hx: No Substance Use Type: Alcohol Hx Substance Use Treatment: Yes <Jeana Abdi - Last Filed: 06/21/17 01:46> - Past Medical History Allergies/Adverse Reactions: Allergies Allergy/AdvReac Type Severity Reaction Status Date / Time No Known Allergies Allergy Verified 06/20/17 23:28 Home Medications: Ambulatory Orders Amlodipine Besylate [Norvasc -] 10 mg PO DAILY #30 tablet 06/20/17 Aspirin Coated [Ecotrin -] 81 mg PO DAILY #30 tablet.ec 06/20/17 Gabapentin [Neurontin -] 300 mg PO BID #60 capsule 06/20/17 Mineral Oil/Petrolat,Wht/Water [Eucerin (Small Jar) -] 1 applic TP HS #1 jar Pantoprazole Sodium [Protonix -] 40 mg PO DAILY #30 tab 06/20/17 Simvastatin [Zocor -] 40 mg PO HS #30 tablet 06/20/17 Review of Systems - Review of Systems Able to Perform ROS?: Yes Comments:: 06/21/17 00:26 Unable to obtain ROS due to patient intoxication state. <Liam Reyes - Last Filed: 06/21/17 00:25> *Physical Exam - Vital Signs Last Vital Signs Temp Pulse Resp BP Pulse Ox 97.5 F L 69 18 109/70 97 06/20/17 23:27 06/20/17 23:27 06/20/17 23:27 06/20/17 23:27 06/20/17 23:27 - Physical Exam Comments: 06/21/17 00:26 GENERAL: Sleepy but mildy arousable. Alcohol on breath. HEAD: No signs of trauma, normocephalic, atraumatic EYES: PERRLA, EOMI, sclera anicteric, conjunctiva clear ENT: Auricles normal inspection, hearing grossly normal, nares patent, oropharynx clear without exudates. Moist mucosa NECK: Normal ROM, supple, no lymphadenopathy, JVD, or masses LUNGS: No distress, clear to auscultation bilaterally HEART: Regular rate and rhythm, normal S1 and S2, no murmurs, rubs or gallops, peripheral pulses normal and equal bilaterally. ABDOMEN: Soft, nontender, normoactive bowel sounds. No guarding, no rebound. No masses EXTREMITIES : (+) Cold left foot. Amputated 4 little toes on left foot. Normal range of motion, no edema. No clubbing or cyanosis. NEUROLOGICAL: Deferred due to patient intoxication. SKIN: Warm, Dry, normal turgor, no rashes or lesions noted. <Liam Reyes - Last Filed: 06/21/17 00:25> - Vital Signs Last Vital Signs Temp Pulse Resp BP Pulse Ox 97.5 F L 69 18 109/70 97 06/20/17 23:27 06/20/17 23:27 06/20/17 23:27 06/20/17 23:27 06/20/17 23:27 <Jeana Abdi - Last Filed: 06/21/17 01:46> Heart Score/ECG Review - ECG Intrepretation Comment:: 06/21/17 01:40 sinus at 77, nl axis, nl interval, q waves septally that are age indeterminate, lvh, t wave flattening laterally, abnl ekg <Jeana Abdi - Last Filed: 06/21/17 01:46> ED Treatment Course - LABORATORY CBC & Chemistry Diagram: 06/21/17 01:25 06/21/17 01:25 <Jeana Abdi - Last Filed: 06/21/17 01:46> Medical Decision Making - Medical Decision Making 06/21/17 01:15 a/p: 72yo male brought in by medics after being found outside intoxicated -smell of etoh on breath -moving both arms with sternal rub -unable to provide any hx -will check labs, head ct -cold L foot, unable to obtain dopplers of L dp/pt -will obtain stat arterial dopplers -amputated toes to L foot -will check ekg, cxr -will monitor and reassess -will give ivf hydration 06/21/17 01:45 pending ultrasound, ct, and labs pt will be signed out to the oncoming ed physician pending results <Jeana Abdi - Last Filed: 06/21/17 01:46> *DC/Admit/Observation/Transfer - Attestations Scribe Attestion: 06/21/17 00:26 Documentation prepared by Liam Reyes, acting as medical care administrator for Jeana Abdi DO <Liam Reyes - Last Filed: 06/21/17 00:25> - Attestations Physician Attestion: 06/21/17 01:45 Dr. Jeana Knutson, DO, attest that this document has been prepared under my direction and personally reviewed by me in its entirety. I further attest, that it accurately reflects all work, treatment, procedures and medical decision -making performed by me. <Jeana Abdi - Last Filed: 06/21/17 01:46> Diagnosis at time of Disposition: Alcohol dependence with uncomplicated withdrawal
[2017-06-21] MEDS ORDERED: FOLIC ACID INJECTION - 1 MG, THIAMINE HCL 100 MG, MULTIVIT INJECTION ADULT 10 ML in SOD... IVPB ONE (01:19)
[2017-06-21] MEDS ORDERED: SODIUM CHLORIDE 0.9% 1000 ML INFUS.BAG IV ONE (01:20)
[2017-06-21 01:30] LABS: BASO % 0.9 % (0-2.0); EOS % 2.5 % (0-4.5); HEMOGLOBIN 14.2 GM/dL (11.7-16.9); LYMPH % 24.2 % (8-40); MCH 32.3 pg (25.7-33.7); MCHC 32.9 g/dl (32.0-35.9); MEAN PLT VOLUME 8.4 fl (7.5-11.1); MONO % 15.6 % (3.8-10.2); NEUT % 56.8 % (42.8-82.8); PLATELET COUNT 162 K/MM3 (134-434); RBC 4.38 M/mm3 (4.00-5.60); RDW 15.5 % (11.9-15.9); WHITE BLOOD COUNT 3.6 K/mm3 (4.0-10.0)
[2017-06-21 01:56] LABS: ALBUMIN 3.7 g/dl (3.4-5.0); ANION GAP 10 (8-16); BILIRUBIN,TOTAL 0.3 mg/dL (0.2-1.0); BLOOD UREA NITROGEN 15 mg/dL (7-18); CALCIUM 8.7 mg/dL (8.5-10.1); CHLORIDE 105 mmol/L (98-107); CO2 27 mmol/L (21-32); CREATININE 0.8 mg/dL (0.7-1.3); GLUCOSE,RANDOM 81 mg/dL (74-106); MAGNESIUM 2.4 mg/dL (1.8-2.4); SGOT/AST 39 U/L (15-37); SGPT/ALT 52 U/L (12-78); SODIUM 142 mmol/L (136-145); TOT PROT 8.1 g/dl (6.4-8.2)
[2017-06-21 01:59] LABS: ALK PHOS 71 U/L (45-117)
--- NOTE | 2017-06-21 02:17 | PDOC ---
*Physical Exam - Vital Signs Last Vital Signs Temp Pulse Resp BP Pulse Ox 97.5 F L 69 18 109/70 97 06/20/17 23:27 06/20/17 23:27 06/20/17 23:27 06/20/17 23:27 06/20/17 23:27 ED Treatment Course - LABORATORY CBC & Chemistry Diagram: 06/21/17 01:25 06/21/17 01:25 - ADDITIONAL ORDERS Additional order review: Laboratory Results 06/21/17 06/21/17 06/21/17 01:25 01:25 01:25 Sodium 142 Potassium 4.0 D Chloride 105 Carbon Dioxide 27 Anion Gap 10 BUN 15 Creatinine 0.8 Creat Clearance w eGFR > 60 Random Glucose 81 Lactic Acid 1.2 Calcium 8.7 Magnesium 2.4 Total Bilirubin 0.3 D AST 39 H D ALT 52 D Alkaline Phosphatase 71 Creatine Kinase 108 Troponin I < 0.02 Total Protein 8.1 Albumin 3.7 Alcohol, Quantitative 97.2 H* 06/21/17 01:25 RBC 4.38 MCV 98.0 H MCHC 32.9 RDW 15.5 MPV 8.4 Neutrophils % 56.8 D Lymphocytes % 24.2 D Monocytes % 15.6 H Eosinophils % 2.5 Basophils % 0.9 *DC/Admit/Observation/Transfer Diagnosis at time of Disposition: Alcohol dependence with uncomplicated withdrawal, Sensation of cold in lower extremity - Discharge Dispostion Condition at time of disposition: Stable Admit: Yes - Referrals - Patient Instructions - Post Discharge Activity
[2017-06-21 03:01] LABS: URINE APPEARANCE CLEAR; URINE BILIRUBIN NEGATIVE (NEGATIVE); URINE BLOOD NEGATIVE (NEGATIVE); URINE COLOR YELLOW; URINE GLUCOSE (UA) NEGATIVE (NEGATIVE); URINE KETONE NEGATIVE (NEGATIVE); URINE LEUK ESTERASE NEGATIVE (NEGATIVE); URINE NITRITE NEGATIVE (NEGATIVE); URINE PROTEIN NEGATIVE (NEGATIVE); URINE UROBILINOGEN NEGATIVE mg/dL (0.2-1.0)
[2017-06-21 03:12] LABS: COCAINE, UR NEGATIVE ng/ml (CUTOFF=300); METHADONE, UR NEGATIVE ng/ml (CUTOFF=300); OPIATES, URI NEGATIVE ng/ml (CUTOFF=300); PHENCYCLIDINE,URINE NEGATIVE ng/ml (CUTOFF=25); URINE AMPHETAMINES NEGATIVE ng/ml (CUTOFF=500); URINE BARBITURATES NEGATIVE ng/ml (CUTOFF=200)
[2017-06-21 03:14] LABS: URINE BENZODIAZEPINES POSITIVE ng/ml (CUTOFF=200)
--- NOTE | 2017-06-21 03:49 | PN ---
Teaching Attending Note Name of Resident: Tacos Silveira ATTENDING PHYSICIAN STATEMENT I saw and evaluated the patient. I reviewed the resident's note and discussed the case with the resident. I agree with the resident's findings and plan as documented. SUBJECTIVE: 72 M BIBA w pmhx. of HTN, HLDm GERD who presents to ED s/p Intoxication from Etoh. As per ED pt. had "cold" Left foot. He states that he left [facility] on am and since then had been drinking. Notes that he has neuropathy of his bilateral feet. OBJECTIVE: Physical: VS: Vital Signs Period Temp Pulse Resp BP Sys/Metcalf Pulse Ox Last 24 Hr 97.5 F 69 18 109/70 97 GEN: NAD, Resting in bed, AA0X3 HEENT: NCAT, PERRL, Throat without erythema or exudates CARD:RRR S1, S2 RESP: CTAB ABD: BSx4, NTD to palpation EXT: - C/C/E, DP PULSES intace 2/4 in both feet. Bilateral Feet warm to touch. CBCD WBC 3.6 K/mm3 (4.0-10.0) L 06/21/17 01:25 RBC 4.38 M/mm3 (4.00-5.60) 06/21/17 01:25 Hgb 14.2 GM/dL (11.7-16.9) 06/21/17 01:25 Hct 43.0 % (35.4-49) 06/21/17 01:25 MCV 98.0 fl (80-96) H 06/21/17 01:25 MCHC 32.9 g/dl (32.0-35.9) 06/21/17 01:25 RDW 15.5 % (11.9-15.9) 06/21/17 01:25 Plt Count 162 K/MM3 (134-434) 06/21/17 01:25 MPV 8.4 fl (7.5-11.1) 06/21/17 01:25 CMP Sodium 142 mmol/L (136-145) 06/21/17 01:25 Potassium 4.0 mmol/L (3.5-5.1) D 06/21/17 01:25 Chloride 105 mmol/L (98-107) 06/21/17 01:25 Carbon Dioxide 27 mmol/L (21-32) 06/21/17 01:25 Anion Gap 10 (8-16) 06/21/17 01:25 BUN 15 mg/dL (7-18) 06/21/17 01:25 Creatinine 0.8 mg/dL (0.7-1.3) 06/21/17 01:25 Creat Clearance w eGFR > 60 (>60) 06/21/17 01:25 Random Glucose 81 mg/dL (74-106) 06/21/17 01:25 Calcium 8.7 mg/dL (8.5-10.1) 06/21/17 01:25 Total Bilirub 0.3 mg/dL (0.2-1.0) D 06/21/17 01:25 AST 39 U/L (15-37) H D 06/21/17 01:25 ALT 52 U/L (12-78) D 06/21/17 01:25 Alkaline Phosphatase 71 U/L (45-117) 06/21/17 01:25 Total Protein 8.1 g/dl (6.4-8.2) 06/21/17 01:25 Albumin 3.7 g/dl (3.4-5.0) 06/21/17 01:25 CARDIAC ENZYMES Creatine Kinase 108 IU/L (39-308) 06/21/17 01:25 Troponin I < 0.02 ng/ml (0.00-0.05) 06/21/17 01:25 Home Medications Medication Instructions Recorded Amlodipine Besylate [Norvasc -] 10 mg PO DAILY #30 tablet 06/20/17 Aspirin Coated [Ecotrin -] 81 mg PO DAILY #30 tablet.ec 06/20/17 Gabapentin [Neurontin -] 300 mg PO BID #60 capsule 06/20/17 Mineral Oil/Petrolat,Wht/Water 1 applic TP HS #1 jar 06/20/17 [Eucerin (Small Jar) -] Pantoprazole Sodium [Protonix -] 40 mg PO DAILY #30 tab 06/20/17 Simvastatin [Zocor -] 40 mg PO HS #30 tablet 06/20/17 CT HEAD- Involutional changes with mild ventriculomegaly DUPLEX ART LLE- DP could not be assessed, but flow intact ASSESSMENT AND PLAN: 72 M BIBA w pmhx. of HTN, HLDm GERD who presents to ED s/p Intoxication from Etoh 1.) ETOH Intoxication - Banana Bag - Thiamine/Folic Acid - [facility] Protocol - Detox consult 2.) HTN - C/W Amlodipine 3.) Peripheral Neuropathy - C/W Gabapentin 4.) HLD - C/W Zocor 5.) GERD - PPI 6.) HLD - C/W Statin 7.) Mild Ventriculomegaly - Monitor - Repeat CT if headaches 8.) DVt Ppx - Amublates - [facility] in [facility]- Tele
[2017-06-21] MEDS ORDERED: chlordiazePOXIDE HCL 25 MG CAPSULE PO PRN ×2 (04:12→13:17)
--- NOTE | 2017-06-21 04:12 | HP ---
CHIEF COMPLAINT: intoxication PCP: HISTORY OF PRESENT ILLNESS: Pt is a 72 y/o M with PMH EtOH abuse with numerous hospital visits for intoxication who was BIBA intoxicated and uncommunicative. Pt reportedly left [facility] facility on the morning of the and immediately started drinking again. Pt does not recall what happened last night. Pt complains of foot pain from long standing neuropathy and requests librium. Pt also states he has chronic back pain, which is currently controlled. Pt denies cp, sob, fever, chills, nausea, vomiting, diarrhea. He states his head does not hurt. Pt currently stable, afebrile, in NAD. ER course was notable for: (1) alcohol 97.2, Utox pos for Benzos (2) cxr unremarkable, head CT night hawk read consistent with ventriculomegaly without trauma/bleed, L leg doppler suggestive of atherosclerotic disease (3) Recent Travel: denies PAST MEDICAL HISTORY: HLD, HTN, GERD PAST SURGICAL HISTORY: Social History: Smokin cig/day Alcohol: 3 pints hard liquor daily Drugs: denies Family History: denies Allergies No Known Allergies Allergy (Verified 06/20/17 23:28) HOME MEDICATIONS: Home Medications Medication Instructions Recorded Amlodipine Besylate [Norvasc -] 10 mg PO DAILY #30 tablet 06/20/17 Aspirin Coated [Ecotrin -] 81 mg PO DAILY #30 tablet.ec 06/20/17 Gabapentin [Neurontin -] 300 mg PO BID #60 capsule 06/20/17 Mineral Oil/Petrolat,Wht/Water 1 applic TP HS #1 jar 06/20/17 [Eucerin (Small Jar) -] Pantoprazole Sodium [Protonix -] 40 mg PO DAILY #30 tab 06/20/17 Simvastatin [Zocor -] 40 mg PO HS #30 tablet 06/20/17 REVIEW OF SYSTEMS CONSTITUTIONAL: Absent: fever, chills, diaphoresis, generalized weakness, malaise, loss of appetite, weight change HEENT: Absent: rhinorrhea, nasal congestion, throat pain, throat swelling, difficulty swallowing, mouth swelling, ear pain, eye pain, visual changes CARDIOVASCULAR: Absent: chest pain, syncope, palpitations, irregular heart rate, lightheadedness , peripheral edema RESPIRATORY: Absent: cough, shortness of breath, dyspnea with exertion, orthopnea, wheezing, stridor, hemoptysis GASTROINTESTINAL: Absent: abdominal pain, abdominal distension, nausea, vomiting, diarrhea, constipation, melena, hematochezia GENITOURINARY: Absent: dysuria, frequency, urgency, hesitancy, hematuria, flank pain, genital pain MUSCULOSKELETAL: Absent: myalgia, arthralgia, joint swelling, back pain, neck pain SKIN: Absent: rash, itching, pallor HEMATOLOGIC/IMMUNOLOGIC: Absent: easy bleeding, easy bruising, lymphadenopathy, frequent infections ENDOCRINE: Absent: unexplained weight gain, unexplained weight loss, heat intolerance, cold intolerance NEUROLOGIC: Absent: headache, focal weakness or paresthesias, dizziness, unsteady gait, seizure, mental status changes, bladder or bowel incontinence PSYCHIATRIC: Absent: anxiety, depression, suicidal or homicidal ideation, hallucinations. PHYSICAL EXAMINATION Vital Signs - 24 hr 06/20/17 23:27 Temperature 97.5 F L Pulse Rate 69 Respiratory 18 Rate Blood Pressure 109/70 O2 Sat by Pulse 97 Oximetry (%) GENERAL: sleeping but rousable and fully oriented, in no acute distress. HEAD: Normal with no signs of trauma. Subtle head tremors EYES: Pupils equal, round and reactive to light, extraocular movements intact mild nystagmus at the periphery, sclera anicteric, conjunctiva clear. No lid lag. EARS, NOSE, THROAT: oropharynx clear without exudates. Moist mucous membranes. adentulous maxillary NECK: Normal range of motion, supple without lymphadenopathy, JVD, or masses. LUNGS: Breath sounds equal, clear to auscultation bilaterally. No wheezes, and no crackles. No accessory muscle use. HEART: Regular rate and rhythm, normal S1 and S2 without murmur, rub or gallop. ABDOMEN: Soft, nontender, not distended, normoactive bowel sounds, no guarding, no rebound, no masses. No hepatomegaly or splenomegaly. MUSCULOSKELETAL: Normal range of motion at all joints. No bony deformities or tenderness. No CVA tenderness. UPPER EXTREMITIES: R hand tremulous. No flapping asterixis. 2+ pulses, warm, well-perfused. No cyanosis. No clubbing. No peripheral edema. LOWER EXTREMITIES: 2+ pulses R DP, 1+ L DP, L foot with multiple toe amputations , warm, well-perfused. No calf tenderness. No peripheral edema. NEUROLOGICAL: Cranial nerves II-XII intact. Normal speech. PSYCHIATRIC: Cooperative. Good eye contact. Appropriate mood and affect. SKIN: Warm, dry, normal turgor, no rashes or lesions noted, normal capillary refill. Laboratory Results - last 24 hr 06/21/17 06/21/17 06/21/17 01:25 01:25 01:25 WBC RBC Hgb Hct MCV MCH MCHC RDW Plt Count MPV Neutrophils % Lymphocytes % Monocytes % Eosinophils % Basophils % PTT (Actin FS) 27.1 Sodium 142 Potassium 4.0 D Chloride 105 Carbon Dioxide 27 Anion Gap 10 BUN 15 Creatinine 0.8 Creat Clearance w eGFR > 60 Random Glucose 81 Lactic Acid 1.2 Calcium 8.7 Magnesium 2.4 Total Bilirubin 0.3 D AST 39 H D ALT 52 D Alkaline Phosphatase 71 Creatine Kinase 108 Troponin I < 0.02 Total Protein 8.1 Albumin 3.7 Urine Color Urine Appearance Urine pH Ur Specific [place] Urine Protein Urine Glucose (UA) Urine Ketones Urine Blood Urine Nitrite Urine Bilirubin Urine Urobilinogen Ur Leukocyte Esterase Opiates Screen Methadone Screen Barbiturate Screen Phencyclidine Screen Ur Amphetamines Screen MDMA (Ecstasy) Screen Benzodiazepines Screen Cocaine Screen U Marijuana (THC) Screen Alcohol, Quantitative Blood Type Antibody Screen 06/21/17 06/21/17 06/21/17 01:25 01:25 01:25 WBC 3.6 L RBC 4.38 Hgb 14.2 Hct 43.0 MCV 98.0 H MCH 32.3 MCHC 32.9 RDW 15.5 Plt Count 162 MPV 8.4 Neutrophils % 56.8 D Lymphocytes % 24.2 D Monocytes % 15.6 H Eosinophils % 2.5 Basophils % 0.9 PTT (Actin FS) Sodium Potassium Chloride Carbon Dioxide Anion Gap BUN Creatinine Creat Clearance w eGFR Random Glucose Lactic Acid Calcium Magnesium Total Bilirubin AST ALT Alkaline Phosphatase Creatine Kinase Troponin I Total Protein Albumin Urine Color Urine Appearance Urine pH Ur Specific [place] Urine Protein Urine Glucose (UA) Urine Ketones Urine Blood Urine Nitrite Urine Bilirubin Urine Urobilinogen Ur Leukocyte Esterase Opiates Screen Methadone Screen Barbiturate Screen Phencyclidine Screen Ur Amphetamines Screen MDMA (Ecstasy) Screen Benzodiazepines Screen Cocaine Screen U Marijuana (THC) Screen Alcohol, Quantitative 97.2 H* Blood Type A POSITIVE Antibody Screen Negative 06/21/17 06/21/17 02:50 02:50 WBC RBC Hgb Hct MCV MCH MCHC RDW Plt Count MPV Neutrophils % Lymphocytes % Monocytes % Eosinophils % Basophils % PTT (Actin FS) Sodium Potassium Chloride Carbon Dioxide Anion Gap BUN Creatinine Creat Clearance w eGFR Random Glucose Lactic Acid Calcium Magnesium Total Bilirubin AST ALT Alkaline Phosphatase Creatine Kinase Troponin I Total Protein Albumin Urine Color Yellow Urine Appearance Clear Urine pH 5.0 D Ur Specific [place] 1.018 Urine Protein Negative Urine Glucose (UA) Negative Urine Ketones Negative Urine Blood Negative Urine Nitrite Negative Urine Bilirubin Negative Urine Urobilinogen Negative Ur Leukocyte Esterase Negative Opiates Screen Negative Methadone Screen Negative Barbiturate Screen Negative Phencyclidine Screen Negative Ur Amphetamines Screen Negative MDMA (Ecstasy) Screen Negative Benzodiazepines Screen Positive Cocaine Screen Negative U Marijuana (THC) Screen Negative Alcohol, Quantitative Blood Type Antibody Screen ASSESSMENT/PLAN: PT is a 72 y/o M with PMH EtOH abuse who recently left [facility] facility who was BIBA intoxicated. Currently, pt AAOx3, responsive, stable in NAD. #Intoxication -EtOH 97 -Benzo pos. Likely from being in rehab -Detox -Librium -B12 -Folate daily -Thyamine daily -Banana bag -Detox consult #Neuropathy -c/w neurontin #HTN -c/w norvasc #GERD -c/w protonix #HLD -c/w Simvastatin #FEN -banana bag -lytes wnl -htn diet #PPx - Visit type - Emergency Visit Emergency Visit: Yes ED Registration Date: 06/21/17 Care time: The patient presented to the Emergency Department on the above date and was hospitalized for further evaluation of their emergent condition. - New Patient This patient is new to me today: Yes Date on this admission: 06/22/17 - Critical Care Critical Care patient: No
[2017-06-21] MEDS ORDERED: CYANOCOBALAMIN (VITAMIN B-12) 1000 MCG/1 ML VIAL IM ONE (04:14)
[2017-06-21] MEDS: HEPARIN NA (PORCINE) 5,000 UNITS/ML 1ML VIAL SQ SCH ×2 (06:51→14:24)
--- NOTE | 2017-06-21 08:48 | PN ---
Physical Exam: SUBJECTIVE: Patient seen and examined OBJECTIVE: Vital Signs Intake & Output 06/18/17 06/19/17 06/20/17 06/21/17 23:59 23:59 23:59 23:59 Weight 70.307 kg Period Temp Pulse Resp BP Sys/Metcalf Pulse Ox Last 24 Hr 97.5 F 69-73 16-18 109-143/70-89 97-97 GENERAL: The patient is awake, alert, and fully oriented, in no acute distress. HEAD: Normal with no signs of trauma. EYES: PERRL, extraocular movements intact, sclera anicteric, conjunctiva clear. No ptosis. ENT: Ears normal, nares patent, oropharynx clear without exudates, moist mucous membranes. NECK: Trachea midline, full range of motion, supple. LUNGS: Breath sounds equal, clear to auscultation bilaterally, no wheezes, no crackles, no accessory muscle use. HEART: Regular rate and rhythm, S1, S2 without murmur, rub or gallop. ABDOMEN: Soft, nontender, nondistended, normoactive bowel sounds, no guarding, no rebound, no hepatosplenomegaly, no masses. EXTREMITIES: 2+ pulses, warm, well-perfused, no edema. NEUROLOGICAL: Cranial nerves II through XII grossly intact. Normal speech, gait not observed. PSYCH: Normal mood, normal affect. SKIN: Warm, dry, normal turgor, no rashes or lesions noted Laboratory Results - last 24 hr CBC, BMP 06/21/17 01:25 06/21/17 01:25 06/21/17 06/21/17 06/21/17 01:25 01:25 01:25 WBC RBC Hgb Hct MCV MCH MCHC RDW Plt Count MPV Neutrophils % Lymphocytes % Monocytes % Eosinophils % Basophils % PTT (Actin FS) 27.1 Sodium 142 Potassium 4.0 D Chloride 105 Carbon Dioxide 27 Anion Gap 10 BUN 15 Creatinine 0.8 Creat Clearance w eGFR > 60 Random Glucose 81 Lactic Acid 1.2 Calcium 8.7 Magnesium 2.4 Total Bilirubin 0.3 D AST 39 H D ALT 52 D Alkaline Phosphatase 71 Creatine Kinase 108 Troponin I < 0.02 Total Protein 8.1 Albumin 3.7 Urine Color Urine Appearance Urine pH Ur Specific [place] Urine Protein Urine Glucose (UA) Urine Ketones Urine Blood Urine Nitrite Urine Bilirubin Urine Urobilinogen Ur Leukocyte Esterase Opiates Screen Methadone Screen Barbiturate Screen Phencyclidine Screen Ur Amphetamines Screen MDMA (Ecstasy) Screen Benzodiazepines Screen Cocaine Screen U Marijuana (THC) Screen Alcohol, Quantitative Blood Type Antibody Screen 06/21/17 06/21/17 06/21/17 01:25 01:25 01:25 WBC 3.6 L RBC 4.38 Hgb 14.2 Hct 43.0 MCV 98.0 H MCH 32.3 MCHC 32.9 RDW 15.5 Plt Count 162 MPV 8.4 Neutrophils % 56.8 D Lymphocytes % 24.2 D Monocytes % 15.6 H Eosinophils % 2.5 Basophils % 0.9 PTT (Actin FS) Sodium Potassium Chloride Carbon Dioxide Anion Gap BUN Creatinine Creat Clearance w eGFR Random Glucose Lactic Acid Calcium Magnesium Total Bilirubin AST ALT Alkaline Phosphatase Creatine Kinase Troponin I Total Protein Albumin Urine Color Urine Appearance Urine pH Ur Specific [place] Urine Protein Urine Glucose (UA) Urine Ketones Urine Blood Urine Nitrite Urine Bilirubin Urine Urobilinogen Ur Leukocyte Esterase Opiates Screen Methadone Screen Barbiturate Screen Phencyclidine Screen Ur Amphetamines Screen MDMA (Ecstasy) Screen Benzodiazepines Screen Cocaine Screen U Marijuana (THC) Screen Alcohol, Quantitative 97.2 H* Blood Type A POSITIVE Antibody Screen Negative 06/21/17 06/21/17 02:50 02:50 WBC RBC Hgb Hct MCV MCH MCHC RDW Plt Count MPV Neutrophils % Lymphocytes % Monocytes % Eosinophils % Basophils % PTT (Actin FS) Sodium Potassium Chloride Carbon Dioxide Anion Gap BUN Creatinine Creat Clearance w eGFR Random Glucose Lactic Acid Calcium Magnesium Total Bilirubin AST ALT Alkaline Phosphatase Creatine Kinase Troponin I Total Protein Albumin Urine Color Yellow Urine Appearance Clear Urine pH 5.0 D Ur Specific [place] 1.018 Urine Protein Negative Urine Glucose (UA) Negative Urine Ketones Negative Urine Blood Negative Urine Nitrite Negative Urine Bilirubin Negative Urine Urobilinogen Negative Ur Leukocyte Esterase Negative Opiates Screen Negative Methadone Screen Negative Barbiturate Screen Negative Phencyclidine Screen Negative Ur Amphetamines Screen Negative MDMA (Ecstasy) Screen Negative Benzodiazepines Screen Positive Cocaine Screen Negative U Marijuana (THC) Screen Negative Alcohol, Quantitative Blood Type Antibody Screen Active Medications Generic Name Dose Route Start Last Admin Trade Name Freq PRN Reason Stop Dose Admin Amlodipine Besylate 10 mg 06/21/17 10:00 Norvasc - PO DAILY [facility] Aspirin 81 mg 06/21/17 10:00 Ecotrin - PO DAILY [facility] Atorvastatin Calcium 20 mg 06/21/17 22:00 Lipitor - PO HS [facility] Folic Acid 1 mg 06/21/17 10:00 Folic Acid - PO DAILY [facility] Gabapentin 300 mg 06/21/17 10:00 Neurontin - PO BID [facility] Heparin Sodium (Porcine) 5,000 unit 06/21/17 06:00 06/21/17 06:51 Heparin - SQ 5,000 unit TID [facility] Administration Folic Acid 1 mg/ Thiamine HCl 1,000 mls @ 125 mls/hr 06/21/17 01:19 06/21/17 02:43 100 mg/ Multivitamins/Minerals IVPB 06/21/17 09:18 125 mls/hr 10 ml/ Sodium Chloride ONCE ONE Administration Multi-Ingredient Lotion 1 applic 06/21/17 22:00 Eucerin (Small Jar) - TP HS [facility] Pantoprazole Sodium 40 mg 06/21/17 10:00 Protonix - PO DAILY [facility] Thiamine HCl 100 mg 06/21/17 10:00 Vitamin B1 - PO DAILY [facility] ASSESSMENT/PLAN:
[2017-06-21] MEDS ORDERED: THIAMINE HCL 100 MG TABLET (FP) PO SCH (10:00)
[2017-06-21] MEDS ORDERED: GABAPENTIN 300 MG CAPSULE (FP) PO SCH (10:00)
[2017-06-21] MEDS ORDERED: PANTOPRAZOLE 40 MG TABLET (FP) PO SCH (10:00)
[2017-06-21] MEDS ORDERED: amLODIPine BESYLATE 10 MG TABLET (FP) PO SCH (10:00)
[2017-06-21] MEDS ORDERED: ASPIRIN COATED 81 MG TABLET.EC PO SCH (10:00)
[2017-06-21] MEDS ORDERED: FOLIC ACID 1 MG TABLET (FP) PO SCH (10:00)
--- NOTE | 2017-06-21 10:30 | EKG ---
Test Reason : Blood Pressure : / mmHG Vent. Rate : 077 BPM Atrial Rate : 077 BPM P-R Int : 154 ms QRS Dur : 084 ms QT Int : 394 ms P-R-T Axes : 077 026 053 degrees QTc Int : 445 ms NORMAL SINUS RHYTHM SEPTAL INFARCT , AGE UNDETERMINED ABNORMAL ECG WHEN COMPARED WITH ECG OF 17-JUN-2017 02:24, SEPTAL INFARCT IS NOW PRESENT ST NO LONGER DEPRESSED IN INFERIOR LEADS Confirmed by BRANDEN MATHIS, CHIP ([id number]) on 06/21/2017 10:30:03 AM Referred By: Confirmed By:CHIP OTERO MD
[2017-06-21] MEDS ORDERED: chlordiazePOXIDE HCL 25 MG CAPSULE PO SCH ×2 (11:00)
[2017-06-21 11:02] VITALS: BP 101/87
[2017-06-21 12:43] VITALS: PULSE 117
--- NOTE | 2017-06-21 13:54 | PN ---
Teaching Attending Note Name of Resident: Dayron Pollard ATTENDING PHYSICIAN STATEMENT I saw and evaluated the patient. I reviewed the resident's note and discussed the case with the resident. I agree with the resident's findings and plan as documented. SUBJECTIVE:c/o CASTORENA that he has had since last night. frontal, non radiating no change in character or position. also c/o of feeling anxious. he states he completed detox yesterday at [facility] and was very upset that he was unable to do inpatient rehab as there was no beds available to him so he drank 1.5 pints of hard liquor. (which is less than his typical 3 per day). has completed inpatient rehab in the past but always relapses shortly after completing the program. also endorses L foot pain which is chronic but that the pain has travelled up his leg to his calf where it is typically only in the foot. denies Cp, SOB, fever, chills, N/V/C/D/, auditory/visual hallucinations. OBJECTIVE: Last Vital Signs Temp Pulse Resp BP Pulse Ox 97.5 F L 117 H 20 101/87 97 06/20/17 23:27 06/21/17 12:41 06/21/17 12:41 06/21/17 11:02 06/21/17 06:47 General NAD HEENT lateral nystagmus CV S1 S2 RRR no murmur/rub/gallop Lungs CTA B/L no wheezing/rales/rhonchi Extremities slight tremor at rest, B/L LE sensation grossly intact, good plantar and dorsi-flexion of both feet. skin is warm. can not palpate DP on L foot but PT intact, R foot 1+ DP and 2+ PT multiple toe ampuations on L foot ASSESSMENT AND PLAN: 72yo M with PMH continuous ETOH dependence, Dyslipidemia, GERD who just completed detox at [facility] c/o LLE pain and cold 1. PVD- feet are both warm with intact sensation and good motor strength. PT pulses intact B/L. likely has chronic disease. arterial dopplers showing no significant stenosis. will need to f/u with vascular surgery as outpatient. on statin/asa/gabapentin 2. Acute ETOH withdrawals- CIWA 6. start librium protocol as now showing early signs of withdrawal. requesting detox and placement at [facility] for detox. interested in inpatient rehab. explained that we can not guarantee a bed but he will be given information for support in the event no bed is available to give him support. on banana bag, MVI, thaimine, folic acid 3 +BZD on utox- likely from recent completion of ETOH detox with BZD at [facility] 4. GERD- on protonix 5. DVT ppx- EAM 6. Medically optimized to go to [facility] to complete detox
--- NOTE | 2017-06-21 14:39 | PN ---
Progress Note (short form) - Note Progress Note: Vascular Surgery Pt seen and examined in ER with resident. Pt complains of no pain in the legs. Pt has left palpable PT pulse and right palpable DP pulse. No need for vascular intervention at this time. Medical management. Cleared from a vascular standpoint for DC. Kenton Sweet DO
--- NOTE | 2017-06-21 18:37 | DS ---
Physical Exam: SUBJECTIVE: Patient seen and examined by me this AM - Somnolent. Complaining of stiff neck. States he drank one pint of yariel, 1/2 pint of vodka after leaving detox at [facility] as he was depressed about not receiving rehab placement. Does not remember any events after that. Denies any trauma to his knowledge. No CP, SOB, N/V, abdominal pain, hallucinations, fevers , rigors. Mild coarse tremor in hands BL. OBJECTIVE: Vital Signs Period Temp Pulse Resp BP Sys/Metcalf Pulse Ox Last 24 Hr 97.5 F 66-117 16-20 101-143/70-89 97-97 PHYSICAL EXAM GENERAL: Somnolent, elderly man. laying in bed in NAD HEAD: multiple hypopigmented patches on scalp, alopecia. Normal with no signs of trauma. EYES: PERRL, extraocular movements intact, sclera anicteric, conjunctiva clear. ENT: Ears normal, nares patent, oropharynx clear without exudates, moist mucous membranes. NECK: Trachea midline, full range of motion, supple. LUNGS: Breath sounds equal, clear to auscultation bilaterally, no wheezes, no crackles, no accessory muscle use. HEART: Regular rate and rhythm, S1, S2 without murmur, rub or gallop. ABDOMEN: Mild pain to palpation in epigastric region. otherwise, Soft, nontender , nondistended, normoactive bowel sounds, no guarding, no rebound, no hepatosplenomegaly, no masses. EXTREMITIES: BL coarse tremor in hands, -asterixis. L foot with multiple toe amputations. 1+ DP, 2+ PT pulse on L, 2+ DP, Pt on R. No edema. Dry skin on feet BL. No edema noted NEUROLOGICAL: Cranial nerves II through XII grossly intact. Normal speech, gait not observed. Preserved sensation to light touch diffusely. 5/5 strength grossly. PSYCH: Normal mood, normal affect. SKIN: Warm, dry, normal turgor, no rashes or lesions noted. LABS Laboratory Results - last 24 hr 06/21/17 06/21/17 06/21/17 01:25 01:25 01:25 WBC RBC Hgb Hct MCV MCH MCHC RDW Plt Count MPV Neutrophils % Lymphocytes % Monocytes % Eosinophils % Basophils % PTT (Actin FS) 27.1 Sodium 142 Potassium 4.0 D Chloride 105 Carbon Dioxide 27 Anion Gap 10 BUN 15 Creatinine 0.8 Creat Clearance w eGFR > 60 Random Glucose 81 Lactic Acid 1.2 Calcium 8.7 Magnesium 2.4 Total Bilirubin 0.3 D AST 39 H D ALT 52 D Alkaline Phosphatase 71 Creatine Kinase 108 Troponin I < 0.02 Total Protein 8.1 Albumin 3.7 Urine Color Urine Appearance Urine pH Ur Specific [place] Urine Protein Urine Glucose (UA) Urine Ketones Urine Blood Urine Nitrite Urine Bilirubin Urine Urobilinogen Ur Leukocyte Esterase Opiates Screen Methadone Screen Barbiturate Screen Phencyclidine Screen Ur Amphetamines Screen MDMA (Ecstasy) Screen Benzodiazepines Screen Cocaine Screen U Marijuana (THC) Screen Alcohol, Quantitative Blood Type Antibody Screen 06/21/17 06/21/17 06/21/17 01:25 01:25 01:25 WBC 3.6 L RBC 4.38 Hgb 14.2 Hct 43.0 MCV 98.0 H MCH 32.3 MCHC 32.9 RDW 15.5 Plt Count 162 MPV 8.4 Neutrophils % 56.8 D Lymphocytes % 24.2 D Monocytes % 15.6 H Eosinophils % 2.5 Basophils % 0.9 PTT (Actin FS) Sodium Potassium Chloride Carbon Dioxide Anion Gap BUN Creatinine Creat Clearance w eGFR Random Glucose Lactic Acid Calcium Magnesium Total Bilirubin AST ALT Alkaline Phosphatase Creatine Kinase Troponin I Total Protein Albumin Urine Color Urine Appearance Urine pH Ur Specific [place] Urine Protein Urine Glucose (UA) Urine Ketones Urine Blood Urine Nitrite Urine Bilirubin Urine Urobilinogen Ur Leukocyte Esterase Opiates Screen Methadone Screen Barbiturate Screen Phencyclidine Screen Ur Amphetamines Screen MDMA (Ecstasy) Screen Benzodiazepines Screen Cocaine Screen U Marijuana (THC) Screen Alcohol, Quantitative 97.2 H* Blood Type A POSITIVE Antibody Screen Negative 06/21/17 06/21/17 02:50 02:50 WBC RBC Hgb Hct MCV MCH MCHC RDW Plt Count MPV Neutrophils % Lymphocytes % Monocytes % Eosinophils % Basophils % PTT (Actin FS) Sodium Potassium Chloride Carbon Dioxide Anion Gap BUN Creatinine Creat Clearance w eGFR Random Glucose Lactic Acid Calcium Magnesium Total Bilirubin AST ALT Alkaline Phosphatase Creatine Kinase Troponin I Total Protein Albumin Urine Color Yellow Urine Appearance Clear Urine pH 5.0 D Ur Specific [place] 1.018 Urine Protein Negative Urine Glucose (UA) Negative Urine Ketones Negative Urine Blood Negative Urine Nitrite Negative Urine Bilirubin Negative Urine Urobilinogen Negative Ur Leukocyte Esterase Negative Opiates Screen Negative Methadone Screen Negative Barbiturate Screen Negative Phencyclidine Screen Negative Ur Amphetamines Screen Negative MDMA (Ecstasy) Screen Negative Benzodiazepines Screen Positive Cocaine Screen Negative U Marijuana (THC) Screen Negative Alcohol, Quantitative Blood Type Antibody Screen No micro Imaging: Head CT 06/21 - Moderate atrophy, ventricular dilatation and periventricular chronic microvascular ischemic changes without evidence of acute intracranial pathology. Correlate clinically for further evaluation and follow-up. CXR 06/21- Impression: No acute pathology. No significant change Duplex LE arterial 06/21 - No evidence of hemodynamically significant stenosis. Biphasic waveform in the distal left popliteal artery suggestive of less than 50 % stenosis between the proximal and distal left popliteal artery. Patent proximal left [employer] LOSS PREVENTION MANAGER and at least single vessel runoff provided by the left MARY/ DPA. The mid to distal left AREA LOSS PREVENTION MANAGER and the left peroneal artery are not evaluated. Consults: Detox - Dr. Aguilera contacted. Stated patient finished detox, will likely not experience withdrawal symptoms. OK for discharge with f/u at rehab center. HOSPITAL COURSE: Date of Admission:06/21/17 Date of Discharge: 06/21/17 Pt is a 72 y/o M with PMH EtOH abuse with numerous hospital visits for intoxication who was BIBA intoxicated and uncommunicative. Pt reportedly left [facility] facility on the morning of the and immediately started drinking again. Pt does not recall what happened last night. Pt w/ left foot pain, requesting librium. Pt was stable in NAD, denied CP, SOB, fever, chills, N/V, diarrhea or pain in head. ER course notable for alcohol 97.2, Utox pos for Benzos, cxr unremarkable, head CT night hawk read consistent with ventriculomegaly without trauma/bleed, L leg doppler initially suggestive of possible PVD. Labs only remarkable for WBC of 3.6. Pt seen in AM by vascular surgery, determined to have no evidence of hemodynamically significant stenosis BL in legs on imaging and good perfusion BL, cleared by Dr. Sweet. Dr. Aguilera contact by phone, states pt finished detox and unable to get placement at rehab due to lack of beds and no insurance approval. Stated pt will not likely withdraw as finished detox. Pt medically stable and was discharged home to "[facility] [place]" with referral for f/u as outpt with Dr. Negron to establish primary care coverage. Pt instructed to f/u as outpt if he desires rehab facility, as unable to obtain placement during stay. Pt with no active medical issues and unable to obtain rehab placement. Discharged home with outpt f/u with Dr. Negron in clinic. Pt agreeable to plan, all questions answered. Minutes to complete discharge: 35 Discharge Summary Reason For Visit: ALCOHOL DEPENDENCY W/UNCOMPLICATED W/D Current Active Problems Alcohol dependence with uncomplicated withdrawal (Acute) Sensation of cold in lower extremity (Acute) Condition: Stable - Instructions Diet, Activity, Other Instructions: During your stay at [facility], you were treated for acute alcohol intoxication. PLEASE REFRAIN from drinking alcohol as this is detrimental to your health. Please call rehab daily for when a bed becomes available. Go to AA meetings and find a sponser to help you stay sober. Medications: Please continued taking all your home meds as previously prescribed. No new medication was added to your home medication regimen. You have completed your alcohol detox course at [facility]. You were seen by our vascular surgery team for evaluation of blood flow in your left leg. Per their recommendations, your do not require any intervention at time and have good blood flow. Follow-up: If you require a primary care provider, a referral has been included in this packet for follow-up with Dr. Negron in her clinic. Please call the number provided to schedule an appointment. Follow up with vascular surgery. If you experience any of the following symptoms, please return to the hospital. - Hallucinations - Severe tremors/uncontrollable shaking - Seizures - High, persistent fever Referrals: Israel Negron MD [Staff Physician] - 1 Week Kenton Sweet MD [Staff Physician] - Disposition: HOME - Home Medications Comprehensive Discharge Medication List: Ambulatory Orders Amlodipine Besylate [Norvasc -] 10 mg PO DAILY #30 tablet 06/20/17 Aspirin Coated [Ecotrin -] 81 mg PO DAILY #30 tablet.ec 06/20/17 Gabapentin [Neurontin -] 300 mg PO BID #60 capsule 06/20/17 Mineral Oil/Petrolat,Wht/Water [Eucerin (Small Jar) -] 1 applic TP HS #1 jar Pantoprazole Sodium [Protonix -] 40 mg PO DAILY #30 tab 06/20/17 Simvastatin [Zocor -] 40 mg PO HS #30 tablet 01/24/18 Problem List - Problems (1) Sensation of cold in lower extremity Code(s): R20.9 - UNSPECIFIED DISTURBANCES OF SKIN SENSATION (2) Alcohol intoxication Code(s): F10.929 - ALCOHOL USE, UNSPECIFIED WITH INTOXICATION, UNSPECIFIED Qualifiers: Complication of substance-induced condition: with unspecified complication Qualified Code(s): F10.929 - Alcohol use, unspecified with intoxication, unspecified This patient is new to me today: Yes Date on this admission: 06/21/17 Emergency Visit: Yes ED Registration Date: 06/21/17 Care time: The patient presented to the Emergency Department on the above date and was hospitalized for further evaluation of their emergent condition. Critical Care patient: No - Discharge Referral Referred to [facility] No
[2017-06-21] MEDS ORDERED: ATORVASTATIN CA 20 MG TABLET (FP) PO SCH (22:00)
[2017-06-21] MEDS ORDERED: MINERAL OIL/PETROLAT/WATER TOPICAL CREAM 113 GM JAR TP SCH (22:00)
[2017-06-22] MEDS ORDERED: MULTIVITAMINS (DAILY MVI) TABLET (FP) PO SCH (10:00)
[2017-06-22] MEDS ORDERED: chlordiazePOXIDE HCL 25 MG CAPSULE PO SCH ×2 (11:00)
[2017-06-23] MEDS ORDERED: chlordiazePOXIDE 5 MG CAPSULE PO SCH ×2 (11:00)
== END 2017-06-21 18:21 | disposition home or self-care (01) | DRG 897 ==
LOC: JER 21:23 → JERBED 06-21 02:17 → UNDOADMIN 06-21 02:26 → JERBED 06-21 02:26
PROVIDERS: ADMIT Internal Medicine; ATTEND Internal Medicine
PROC: HZ2ZZZZ Detoxification Services for Substance Abuse Treatment (ICD-10-PCS; principal; 2017-06-21)
DX: F10.230 Alcohol dependence with withdrawal, uncomplicated (principal); F10.220 Alcohol dependence with intoxication, uncomplicated; F13.10 Sedative, hypnotic or anxiolytic abuse, uncomplicated; Y90.4 Blood alcohol level of 80-99 mg/100 ml; Z89.422 Acquired absence of other left toe(s); F17.210 Nicotine dependence, cigarettes, uncomplicated; I10 Essential (primary) hypertension; E78.5 Hyperlipidemia, unspecified; K21.9 Gastro-esophageal reflux disease without esophagitis; G62.9 Polyneuropathy, unspecified; G93.89 Other specified disorders of brain; I70.202 Unspecified atherosclerosis of native arteries of extremities, left leg
CPT/HCPCS: 36415; 70450-TC; 71046-TC; 80053; 80307; 81003; 82550; 83605; 83735; 84484; 85025; 85730; 86850; 86900; 86901; 93005; 93010; 93926-TC; 99283-25; J1644

== ENCOUNTER 2017-06-23 02:24 | Emergency (ER) | payer OTHER ==
--- NOTE | 2017-06-23 02:34 | PDOC ---
History of Present Illness - General History Source: Patient Exam Limitations: No Limitations - History of Present Illness Initial Comments: 06/23/17 03:08 The patient is a 72 year old male, with a significant past medical history of hypertension, hyperlipidemia, Hepatitis C, GERD, who presents to the emergency department via EMS with, one hour of chest pain. As per patient, he was waiting for the bus when his chest pain started. He describes his chest pain as a pressure. Secondary to his symptoms, he reports drinking 2 pints of alcohol, has tightness in his jaw, has a headache, and dizziness. The patient is unaware if he fell. He denies any recent fevers or chills. He denies any recent nausea, vomit, diarrhea or constipation. He denies any recent shortness of breath. He denies any recent dysuria, frequency, urgency or hematuria. Allergies: NKA Past surgical history: None reported. Social History: Nonsmoker. Denies EtOH use and recreational drug use. <Elbert Gama - Last Filed: 06/23/17 04:42> <Hannah Rodriguez - Last Filed: 06/23/17 06:26> <Raj Nicholson - Last Filed: 06/23/17 14:29> <Monet Garcia - Last Filed: 06/23/17 14:40> - General Chief Complaint: Chest Pain Stated Complaint: CHEST PAIN Time Seen by Provider: 06/23/17 02:33 Past History <Elbert Gama - Last Filed: 06/23/17 04:42> - Past Medical History Anemia: No Asthma: No Cancer: No Cardiac Disorders: Yes CVA: No COPD: No CHF: No Dementia: No Diabetes: No GI Disorders: Yes (GERD) Disorders: No HTN: Yes Hypercholesterolemia: Yes (ON MED) Kidney Stones: No Liver Disease: Yes (Not on meds) Seizures: No Thyroid Disease: No - Surgical History Abdominal Surgery: No Appendectomy: No Cardiac Surgery: No Cholecystectomy: No Lung Surgery: No Neurologic Surgery: No Orthopedic Surgery: Yes (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,3RD,4TH,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.) - Reproductive History Testicular Surgery: No - Immunization History Immunization Up to Date: Yes - Suicide/Smoking/Psychosocial Hx Smoking Status: Yes Smoking History: Current every day smoker Have you smoked in the past 12 months: Yes Number of Cigarettes Smoked Daily: 5 Cigars Per Day: 0 'Breaking Loose' booklet given: 06/16/17 Hx Alcohol Use: Yes Drug/Substance Use Hx: No Substance Use Type: Alcohol Hx Substance Use Treatment: Yes <RodriguezHannah - Last Filed: 06/23/17 06:26> <Raj Nicholson - Last Filed: 06/23/17 14:29> <Monet Garcia - Last Filed: 06/23/17 14:40> - Past Medical History Allergies/Adverse Reactions: Allergies Allergy/AdvReac Type Severity Reaction Status Date / Time No Known Allergies Allergy Verified 06/23/17 02:52 Home Medications: Ambulatory Orders Amlodipine Besylate [Norvasc -] 10 mg PO DAILY #30 tablet 06/20/17 Aspirin Coated [Ecotrin -] 81 mg PO DAILY #30 tablet.ec 06/20/17 Gabapentin [Neurontin -] 300 mg PO BID #60 capsule 06/20/17 Mineral Oil/Petrolat,Wht/Water [Eucerin (Small Jar) -] 1 applic TP HS #1 jar Pantoprazole Sodium [Protonix -] 40 mg PO DAILY #30 tab 06/20/17 Simvastatin [Zocor -] 40 mg PO HS #30 tablet 06/20/17 Review of Systems - Review of Systems Able to Perform ROS?: Yes Comments:: 06/23/17 03:08 GENERAL/CONSTITUTIONAL: No fever or chills. No weakness. HEAD, EYES, EARS, NOSE AND THROAT: No change in vision. No ear pain or discharge. No sore throat. JAW: +Tightness. CARDIOVASCULAR: +Chest pain. No shortness of breath. RESPIRATORY: No cough, wheezing, or hemoptysis. GASTROINTESTINAL: No nausea, vomiting, diarrhea or constipation. GENITOURINARY: No dysuria, frequency, or change in urination. MUSCULOSKELETAL: No joint or muscle swelling or pain. No neck or back pain. SKIN: No rash NEUROLOGIC: +Headache. +Dizziness. No loss of consciousness, or change in strength/sensation. ENDOCRINE: No increased thirst. No abnormal weight change. HEMATOLOGIC/LYMPHATIC: No anemia, easy bleeding, or history of blood clots. ALLERGIC/IMMUNOLOGIC: No hives or skin allergy. All Other Systems: Reviewed and Negative <Goberdan,Nirvannie - Last Filed: 06/23/17 04:42> *Physical Exam - Vital Signs Last Vital Signs Temp Pulse Resp BP Pulse Ox 98.2 F 86 17 106/73 98 06/23/17 02:30 06/23/17 02:30 06/23/17 02:30 06/23/17 02:30 06/23/17 02:30 - Physical Exam Comments: 06/23/17 04:42 GENERAL: Awake, alert, and fully oriented, in no acute distress HEAD: No signs of trauma EYES: PERRLA, EOMI, sclera anicteric, conjunctiva clear ENT: Auricles normal inspection, hearing grossly normal, nares patent, oropharynx clear without exudates. Moist mucosa NECK: Normal ROM, supple, no lymphadenopathy, JVD, or masses LUNGS: Breath sounds equal, clear to auscultation bilaterally. No wheezes, and no crackles HEART: Regular rate and rhythm, normal S1 and S2, no murmurs, rubs or gallops ABDOMEN: Soft, nontender, normoactive bowel sounds. No guarding, no rebound. No masses EXTREMITIES: Normal range of motion, no edema. No clubbing or cyanosis. No cords, erythema, or tenderness NEUROLOGICAL: Cranial nerves II through XII grossly intact. Normal speech, normal gait SKIN: Warm, Dry, normal turgor, no rashes or lesions noted. <Elbert Gama - Last Filed: 06/23/17 04:42> - Vital Signs Last Vital Signs Temp Pulse Resp BP Pulse Ox 97.9 F 88 16 120/71 98 06/23/17 06:55 06/23/17 07:15 06/23/17 06:55 06/23/17 07:15 06/23/17 08:13 <Raj Nicholson - Last Filed: 06/23/17 14:29> - Vital Signs Last Vital Signs Temp Pulse Resp BP Pulse Ox 97.9 F 81 18 110/76 98 06/23/17 06:55 06/23/17 12:53 06/23/17 12:53 06/23/17 12:53 06/23/17 12:53 <Monet Garcia - Last Filed: 06/23/17 14:40> Heart Score/ECG Review #1 06/23/17 11:48 Vent rate 84 bpm Normal sinus rhythm Septal infarct, age undetermined Abnormal ECG <Raj Nicholson - Last Filed: 06/23/17 14:29> ED Treatment Course - LABORATORY CBC & Chemistry Diagram: 06/23/17 10:10 06/23/17 11:17 - ADDITIONAL ORDERS Additional order review: Laboratory Results 06/23/17 06/23/17 06/23/17 10:10 10:10 10:10 Sodium Cancelled Cancelled Potassium Cancelled Cancelled Chloride Cancelled Cancelled Carbon Dioxide Cancelled Cancelled Anion Gap Cancelled Cancelled BUN Cancelled Cancelled Creatinine Cancelled Cancelled Creat Clearance w eGFR Cancelled Cancelled Random Glucose Cancelled Cancelled Calcium Cancelled Cancelled Total Bilirubin Cancelled Cancelled AST Cancelled Cancelled ALT Cancelled Cancelled Alkaline Phosphatase Cancelled Cancelled Creatine Kinase Cancelled Cancelled Troponin I Cancelled Cancelled Total Protein Cancelled Cancelled Albumin Cancelled Cancelled Lipase Cancelled 06/23/17 10:10 RBC 4.23 MCV 95.3 MCHC 33.3 RDW 16.4 H MPV 9.0 Neutrophils % No Result Required. Lymphocytes % No Result Required. - Additional Consults Time Called: 14:10 Consult/PCP: Spoke with CASTING COORDINATOR Billie at [facility] who is accepting this pt. detox vs. rehab <Raj Nicholson - Last Filed: 06/23/17 14:29> - LABORATORY CBC & Chemistry Diagram: 06/23/17 10:10 06/23/17 11:17 - ADDITIONAL ORDERS Additional order review: Laboratory Results 06/23/17 06/23/17 06/23/17 11:17 10:10 10:10 Sodium 138 Cancelled Potassium 4.3 Cancelled Chloride 105 Cancelled Carbon Dioxide 27 Cancelled Anion Gap 6 L Cancelled BUN 17 Cancelled Creatinine 0.8 Cancelled Creat Clearance w eGFR > 60 Cancelled Random Glucose 114 H D Cancelled Calcium 8.3 L Cancelled Total Bilirubin 0.4 D Cancelled AST 54 H D Cancelled ALT 56 Cancelled Alkaline Phosphatase 79 Cancelled Creatine Kinase 112 Cancelled Cancelled Troponin I < 0.02 Cancelled Cancelled Total Protein 7.6 Cancelled Albumin 3.5 Cancelled Lipase 208 Cancelled 06/23/17 10:10 Sodium Cancelled Potassium Cancelled Chloride Cancelled Carbon Dioxide Cancelled Anion Gap Cancelled BUN Cancelled Creatinine Cancelled Creat Clearance w eGFR Cancelled Random Glucose Cancelled Calcium Cancelled Total Bilirubin Cancelled AST Cancelled ALT Cancelled Alkaline Phosphatase Cancelled Creatine Kinase Troponin I Total Protein Cancelled Albumin Cancelled Lipase 06/23/17 10:10 RBC 4.23 MCV 95.3 MCHC 33.3 RDW 16.4 H MPV 9.0 Neutrophils % No Result Required. Lymphocytes % No Result Required. - RADIOLOGY Radiology Studies Ordered: Category Date Time Status CHEST X-RAY PORTABLE* [RAD] Stat Radiology 06/23/17 09:57 Completed - Medications Given in the ED: ED Medications Discontinued Medications Generic Name Dose Route Start Last Admin Trade Name Freq PRN Reason Stop Dose Admin Lorazepam 0.5 mg 06/23/17 12:03 06/23/17 12:27 Ativan - PO 06/23/17 12:04 0.5 mg ONCE ONE Administration <Monet Garcia - Last Filed: 06/23/17 14:40> Medical Decision Making - Medical Decision Making 06/23/17 06:14 Pt comes with alcohol intox; complaining of CP.. But once in the ER, pt states that he has no CP and he wants to eat food. He understands that he cannot go to detox, as he was just there last week. Pt is refusing us to place an IV as he has poor vasculature and he was stuck 3 times. 06/23/17 06:26 Pt will be signed out to the day team, who will sign him out once he is sober and ready to leave. <Hannah Rodriguez - Last Filed: 06/23/17 06:26> - Medical Decision Making 06/23/17 13:33 I, Dr. Monet Garcia , attest that the scribes documentation that appears above has been prepared under my direction and personally reviewed by me. I confirmed that the note above accurately reflects all work, treatment, procedures, and medical decision-making performed by me. 06/23/17 14:35 Pt's labs reviewed, and pt reevaluated, pt no longer c/o chest pain but is very tremulous, pt was given a dose of ativan in ed earlier which helped with the shakes. Pt remains mildly tachycardic at 105, and is still tremulous, case was discussed with EDGARDO Wise at [facility], and pt was accepted at [facility] for alcohol rehab. PT agreed to transfer to [facility], pt ambulated by card writer hand in edm , has very shaky and unsteady gait due to shakes will need transfer in wheelchair. Pt is awake and alert able to answer questions approriately and provide history, admit to drinking 3 pints of alcohol daily last drink just prior to coming to ed,pt denies any history of seizures if he does not drink. <Monet Garcia - Last Filed: 06/23/17 14:40> *DC/Admit/Observation/Transfer - Attestations Scribe Attestion: 06/23/17 03:09 Documentation prepared by Elbert Gama, acting as medical record librarian for Hannah Rodriguez MD. <Elbert Gama - Last Filed: 06/23/17 04:42> <Hannah Rodriguez - Last Filed: 06/23/17 06:26> <Raj Nicholson - Last Filed: 06/23/17 14:29> - Discharge Dispostion Admit: No <Monet Garcia - Last Filed: 06/23/17 14:40> Diagnosis at time of Disposition: Alcohol dependence - Discharge Dispostion Disposition: HOME Condition at time of disposition: Stable - Referrals Referrals: ON STAFF,NOT [Non Staff, Medical] - - Patient Instructions Printed Discharge Instructions: Alcohol Use Disorder, DI for Alcohol Abuse - Post Discharge Activity
[2017-06-23 03:48] VITALS: BMI 25.7
[2017-06-23 10:31] LABS: HEMATOCRIT 40.3 % (35.4-49); HEMOGLOBIN 13.4 GM/dL (11.7-16.9); MCH 31.8 pg (25.7-33.7); MCHC 33.3 g/dl (32.0-35.9); MEAN CELL VOLUME 95.3 fl (80-96); PLATELET COUNT 220 K/MM3 (134-434); RBC 4.23 M/mm3 (4.00-5.60); RDW 16.4 % (11.9-15.9)
[2017-06-23] MEDS ORDERED: LORazepam 0.5 MG TABLET PO ONE (12:03)
--- NOTE | 2017-06-23 12:08 | EKG ---
Test Reason : Blood Pressure : / mmHG Vent. Rate : 084 BPM Atrial Rate : 084 BPM P-R Int : 148 ms QRS Dur : 074 ms QT Int : 362 ms P-R-T Axes : 063 -18 032 degrees QTc Int : 427 ms POOR DATA QUALITY, INTERPRETATION MAY BE ADVERSELY AFFECTED NORMAL SINUS RHYTHM SEPTAL INFARCT (CITED ON OR BEFORE 21-JUN-2017) ABNORMAL ECG Confirmed by MD TONY, DANA ([id number]) on 06/23/2017 12:07:57 PM Referred By: Confirmed By:DANA JIMENEZ MD
[2017-06-23 12:09] LABS: ACANTHOCYTES 0; ANISOCYTOSIS 0; HELMET CELLS 0; HOWELL-JOLLY BODIES 0; MACROCYTOSIS 0; OVALOCYTE 0; PLATELET ESTIMATE NORMAL; ROULEAU 0; SICKELED CELLS 0; TARGET CELLS 0; TEAR DROP CELLS 0; TOXIC GRANULATION 0
[2017-06-23] MEDS ORDERED: LORazepam 2 MG/ML SDV VIAL ONE (12:20)
[2017-06-23 12:35] LABS: ALBUMIN 3.5 g/dl (3.4-5.0); ANION GAP 6 (8-16); BILIRUBIN,TOTAL 0.4 mg/dL (0.2-1.0); BLOOD UREA NITROGEN 17 mg/dL (7-18); CALCIUM 8.3 mg/dL (8.5-10.1); CHLORIDE 105 mmol/L (98-107); CO2 27 mmol/L (21-32); CREATININE 0.8 mg/dL (0.7-1.3); GLUCOSE,RANDOM 114 mg/dL (74-106); SGPT/ALT 56 U/L (12-78); SODIUM 138 mmol/L (136-145); TOT PROT 7.6 g/dl (6.4-8.2)
[2017-06-23 12:38] LABS: ALK PHOS 79 U/L (45-117)
[2017-06-23 12:39] LABS: LIPASE 208 U/L (73-393); POTASSIUM 4.3 mmol/L (3.5-5.1)
[2017-06-23 12:40] LABS: SGOT/AST 54 U/L (15-37)
[2017-06-23 15:05] VITALS: BP 125/81; PULSE 75; TEMP 98.1
== END 2017-06-23 15:05 | disposition home or self-care (01) ==
LOC: SUPCPDRO 02:24 → JER 02:24
DX: F10.220 Alcohol dependence with intoxication, uncomplicated (principal); G25.2 Other specified forms of tremor; I10 Essential (primary) hypertension; E78.5 Hyperlipidemia, unspecified; E78.00 Pure hypercholesterolemia, unspecified; K21.9 Gastro-esophageal reflux disease without esophagitis; B18.2 Chronic viral hepatitis C; Z89.422 Acquired absence of other left toe(s); Z59.0 Homelessness
CPT/HCPCS: 36415; 71045-TC; 80053; 82550; 83690; 84484; 85025; 93005; 93010; 99284-25

== ENCOUNTER 2017-06-25 09:18 | Emergency (ER) | payer OTHER ==
[2017-06-25 09:43] VITALS: PULSE 94; TEMP 98.3; BMI 25.7
--- NOTE | 2017-06-25 10:12 | PDOC ---
History of Present Illness - General Chief Complaint: Alcohol intoxication Stated Complaint: INTOX, FOLLOW UP Time Seen by Provider: 06/25/17 09:46 History Source: Patient Exam Limitations: Intoxication - History of Present Illness Initial Comments: 06/25/17 10:06 This 72-year-old male with past medical history of alcohol abuse, GERD, hyperlipidemia, HCV, osteoarthritis, spinal stenosis who presents to the emergency department today after drinking "a few beers" and requesting to go to detox. Patient states was seen here 2 days ago and told to come back this morning as the emergency Department will be able to provide a bed for him in detox. Patient endorses a daily 3 pints of hard liquor habit. Patient reports smoking 6-10 cigarettes daily for "many years." Patient presently dizzy denies any dizziness, chest pain, shortness of breath, abdominal pain, nausea, vomiting , diarrhea. 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 EtOH: 3 pints of hard liquor daily Tobacco: 6-10 cigarettes daily for "many years" Illicits: Denies Past History - Past Medical History Allergies/Adverse Reactions: Allergies Allergy/AdvReac Type Severity Reaction Status Date / Time No Known Allergies Allergy Verified 06/25/17 09:39 Home Medications: Ambulatory Orders Amlodipine Besylate [Norvasc -] 10 mg PO DAILY #30 tablet 06/20/17 Aspirin Coated [Ecotrin -] 81 mg PO DAILY #30 tablet.ec 06/20/17 Gabapentin [Neurontin -] 300 mg PO BID #60 capsule 06/20/17 Mineral Oil/Petrolat,Wht/Water [Eucerin (Small Jar) -] 1 applic TP HS #1 jar Pantoprazole Sodium [Protonix -] 40 mg PO DAILY #30 tab 06/20/17 Simvastatin [Zocor -] 40 mg PO HS #30 tablet 06/20/17 Anemia: No Asthma: No Cancer: No Cardiac Disorders: Yes CVA: No COPD: No CHF: No Dementia: No Diabetes: No GI Disorders: Yes (GERD) Disorders: No HTN: Yes Hypercholesterolemia: Yes (ON MED) Kidney Stones: No Liver Disease: Yes (Not on meds) Seizures: No Thyroid Disease: No - Surgical History Abdominal Surgery: No Appendectomy: No Cardiac Surgery: No Cholecystectomy: No Lung Surgery: No Neurologic Surgery: No Orthopedic Surgery: Yes (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,3RD,4TH,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.) - Reproductive History Testicular Surgery: No - Immunization History Immunization Up to Date: Yes - Suicide/Smoking/Psychosocial Hx Smoking Status: Yes Smoking History: Current every day smoker Have you smoked in the past 12 months: Yes Number of Cigarettes Smoked Daily: 5 Cigars Per Day: 0 Information on smoking cessation initiated: Yes 'Breaking Loose' booklet given: 06/25/17 Hx Alcohol Use: Yes Drug/Substance Use Hx: No Substance Use Type: Alcohol Hx Substance Use Treatment: Yes Review of Systems - Review of Systems Able to Perform ROS?: Yes (intoxicated) Is the patient limited Thai proficient: No Constitutional: No: Symptoms Reported HEENTM: No: Symptoms Reported Respiratory: No: Symptoms reported Cardiac (ROS): No: Symptoms Reported ABD/GI: No: Symptoms Reported : No: Symptoms Reported Musculoskeletal: No: Symptoms Reported Integumentary: No: Symptoms Reported Neurological: No: Symptoms reported *Physical Exam - Vital Signs Last Vital Signs Temp Pulse Resp BP Pulse Ox 98.3 F 94 H 18 134/76 100 06/25/17 09:41 06/25/17 09:41 06/25/17 09:41 06/25/17 09:41 06/25/17 09:41 - Physical Exam General Appearance: Yes: Disheveled, Alcohol on Breath HEENT: positive: FRANCISCO, Normal ENT Inspection Neck: positive: Trachea midline, Supple Respiratory/Chest: positive: Lungs Clear, Normal Breath Sounds. negative: Respiratory Distress, Accessory Muscle Use Cardiovascular: positive: Regular Rhythm, Regular Rate, Edema (trace pedal). negative: Murmur Gastrointestinal/Abdominal: positive: Normal Bowel Sounds, Soft. negative: Tender Musculoskeletal: positive: Normal Inspection. 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 Patient states was seen here 2 days ago and told to come back this morning as the emergency Department will be able to provide a bed for him in detox. Patient endorses a daily 3 pints of hard liquor habit. Patient reports smoking 6-10 cigarettes daily for "many years." Patient presently dizzy denies any dizziness, chest pain, shortness of breath, abdominal pain, nausea, vomiting , diarrhea. Patient with alcohol on breath. Reports last EtOH was a couple of beers last night. Does not remember the time. Currently cooperative with care. Pupils equally round reactive to light and accommodation. 4 mm briskly reactive bilaterally. Lungs clear to auscultation bilaterally. RRR. No murmur, rub or gallop noted. Normoactive bowel sounds. Abdomen soft nontender nondistended. Trace pedal edema noted bilaterally. No tremors noted on exam. No tongue fasciculations present. Diagnosis: Alcohol intoxication I will call [facility] to arrange detox/rehabilitation for the patient. I'll continue to monitor the patient for signs and symptoms of acute withdrawal. Ciwa -Ar score at present is 0. 06/25/17 10:[address] Aguilera at [facility] who states at present the patient is not a candidate for detox as he recently completed detox session. He would be eligible for rehabilitation if arrangements can be made for insurance and if bed is available. 06/25/17 14:21 Attempts to find rehabilitation placement have been unsuccessful. At this time patient had his chief clinical sobriety. Currently not tremulous with a Ciwa-Ar score of 0. Patient is refusing rehab at this time. Was explained to the patient that [facility] will have a bed opening on July 02. patient is to go there on the for rehabilitation placement if he desires at that time. Patient is in agreement with this plan. *DC/Admit/Observation/Transfer Diagnosis at time of Disposition: Alcohol intoxication Qualifiers: Complication of substance-induced condition: uncomplicated Qualified Code(s): F10.920 - Alcohol use, unspecified with intoxication, uncomplicated - Discharge Dispostion Disposition: HOME Condition at time of disposition: Stable Admit: No - Referrals - Patient Instructions Printed Discharge Instructions: DI for Alcohol Abuse Additional Instructions: We were unable to find rehabilitation placement for you today. [facility] will have a bed opening on July 02. Go to [address] [place] [address] for rehabilitation at that time. Avoid alcohol use. Eat a well-balanced diet. Return to emergency department for dizziness, hallucinations, tremors, or any other concerns. Thank you very much for choosing us to provide your emergent healthcare needs. - Post Discharge Activity
[2017-06-25 14:21] VITALS: BP 141/75
== END 2017-06-25 14:47 | disposition home or self-care (01) ==
LOC: JER 09:18
DX: F10.120 Alcohol abuse with intoxication, uncomplicated (principal); Y90.9 Presence of alcohol in blood, level not specified; E78.00 Pure hypercholesterolemia, unspecified; K21.9 Gastro-esophageal reflux disease without esophagitis; B18.2 Chronic viral hepatitis C; Z89.422 Acquired absence of other left toe(s)
CPT/HCPCS: 99282-25

== ENCOUNTER 2018-03-07 10:17 | Inpatient (IN) | payer OTHER ==
[2018-03-07 11:03] VITALS: BMI 23.8
--- NOTE | 2018-03-07 11:55 | HP ---
CIWA Score - CIWA Score Nausea/Vomitin Muscle Tremors: 3 Anxiety: 2 Agitation: 2 Paroxysmal Sweats: 1-Minimal Palms Moist Orientation: 0-Oriented Tacttile Disturbances: 1-Very Mild Itch/Numbness Auditory Disturbances: 1-Very Mild Visual Disturbances: 1-Very Mild Sensitivity Headache: 2-Mild CIWA-Ar Total Score: 15 Admission ROS BHS - HPI Chief Complaint: i need help to stop drinking from alcohol Allergies/Adverse Reactions: Allergies Allergy/AdvReac Type Severity Reaction Status Date / Time No Known Allergies Allergy Verified 03/07/18 11:31 History of Present Illness: this 72 years old male with alcohol dependence,seen in [facility] yesterday , refer for detox, multiple admissions in detox,last detox [facility] 06/16/17 to 06/20/17 history of hypertension,gerd,hypercholesterolemia,neuropathy,hepatitis c neuropathy nicotine dependence longest period of sobriety 5 years history of blackout,fall in the past Exam Limitations: No Limitations - Ebola screening Have you traveled outside of the country in the last 21 days: No (N) Have you had contact with anyone from an Ebola affected area: No Have you been sick,other than usual withdrawal symptoms: No Do you have a fever: No - Review of Systems Constitutional: Loss of Appetite, Malaise, Night Sweats, Changes in sleep, Weakness, Unintentional Wgt. Loss EENT: reports: Nose Congestion Respiratory: reports: No Symptoms reported Cardiac: reports: Palpitations GI: reports: Nausea, Poor Appetite, Abdominal cramping : reports: No Symptoms Reported Musculoskeletal: reports: Back Pain, Muscle Pain Integumentary: reports: Dryness Neuro: reports: Headache, Tremors Endocrine: reports: No Symptoms Reported Hematology: reports: No Symptoms Reported Psychiatric: reports: No Sypmtoms Reported, Judgement Intact, Mood/Affect Appropiate, Orientated x3 Patient History - Patient Medical History Hx Anemia: No Hx Asthma: No Hx Chronic Obstructive Pulmonary Disease (COPD): No Hx Cancer: No Hx Cardiac Disorders: No Hx Congestive Heart Failure: No Hx Hypertension: Yes Hx Hypercholesterolemia: Yes (ON MED non compliance) Hx Pacemaker: No HX Cerebrovascular Accident: No Hx Seizures: No Hx Dementia: No Hx Diabetes: No Hx Gastrointestinal Disorders: Yes (GERD) Hx Liver Disease: Yes (Not on meds) Hx Genitourinary Disorders: No Hx Sexually Transmitted Disorders: No Hx Renal Disease (ESRD): No Hx Thyroid Disease: No Hx Human Immunodeficiency Virus (HIV): No (last tested 06/14) Hx Hepatitis C: Yes (Not on Meds, needs treatment) Hx Depression: No Hx Suicide Attempt: No Hx Bipolar Disorder: No Hx Schizophrenia: No Other Medical History: no suicidal,no homicidal - Patient Surgical History Past Surgical History: Yes Hx Neurologic Surgery: No Hx Cataract Extraction: No Hx Cardiac Surgery: No Hx Lung Surgery: No Hx Breast Surgery: No Hx Breast Biopsy: No Hx Abdominal Surgery: No Hx Appendectomy: No Hx Cholecystectomy: No Hx Genitourinary Surgery: No Hx Section: No Hx Orthopedic Surgery: Yes (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,3RD,4TH,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.) Hx Hysterectomy: Yes (fx left elbow in 1975) Other Surgical History: incision and drainage of abscess left hand,PINS AND PLATE LEFT ELBOW Anesthesia Reaction: No - PPD History Previous Implant?: Yes Documented Results: Negative w/o proof Date: 02/03/17 Results: 0 mm PPD to be Administered?: Yes - Smoking Cessation Smoking history: Current every day smoker Have you smoked in the past 12 months: Yes Aproximately how many cigarettes per day: 5 Cigars Per Day: 0 Hx Chewing Tobacco Use: No Initiated information on smoking cessation: Yes 'Breaking Loose' booklet given: 03/07/18 - Substance & Tx. History Hx Alcohol Use: Yes Hx Substance Use: No Substance Use Type: Alcohol Hx Substance Use Treatment: Yes ([facility] 06/16/17 to 06/20/17) - Substances Abused Alcohol-yariel Route: Oral Frequency: Daily Amount used: 3 pts. Age of first use: 17 Date of Last Use: 03/07/18 Family Disease History - Family Disease History Family Disease History: Heart Disease: Father ( OF MD), Sister (MD X 1), Other: Mother (THUY GEHRIG DISEASE, ) Admission Physical Exam S - Vital Signs Vital Signs: Vital Signs - 24 hr 03/07/18 10:59 Temperature 97.5 F L Pulse Rate 117 H Respiratory 20 Rate Blood Pressure 139/85 - Physical General Appearance: Yes: Nourished, Tremorous, Irritable, Sweating, Anxious HEENTM: Yes: Normal ENT Inspection, FRANCISCO, Pharynx Normal Respiratory: Yes: Lungs Clear, Normal Breath Sounds, No Respiratory Distress Neck: Yes: Within Normal Limits Breast: Yes: Within Normal Limits Cardiology: Yes: Tachycardia Abdominal: Yes: Normal Bowel Sounds, Non Tender, Soft, Organomegaly Genitourinary: Yes: Within Normal Limits Back: Yes: Muscle Spasm Musculoskeletal: Yes: Back pain, Muscle Pain Extremities: Yes: Tremors, Other (s/p amputation of left 2nd,3rd,4th,5th toe callus of left big toe) Neurological: Yes: 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 II-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 NML intact, Alert, Motor Strength 5/5 Integumentary: Yes: Dry, Other (abrasion of both knees) Lymphatic: Yes: Within Normal Limits - Diagnostic (1) Alcohol dependence with uncomplicated withdrawal Current Visit: No Status: Acute (2) syncope alcohol related Current Visit: No Status: Active (3) Essential hypertension Current Visit: No Status: Chronic (4) Gastroesophageal reflux disease Current Visit: No Status: Chronic (5) Hepatitis C Current Visit: No Status: Chronic Qualifiers: Viral hepatitis chronicity: chronic Hepatic coma status: without hepatic coma Qualified Code(s): B18.2 - Chronic viral hepatitis C (6) Nicotine dependence Current Visit: No Status: Chronic Qualifiers: Nicotine product type: cigarettes Substance use status: in withdrawal Qualified Code(s): F17.213 - Nicotine dependence, cigarettes, with withdrawal (7) Weight decreased Current Visit: No Status: Chronic (8) hypercholesterolemia Current Visit: No Status: Chronic (9) s/p surgery for fx left elbow Current Visit: No Status: Chronic (10) Neuropathy Current Visit: Yes Status: Acute (11) History of fall Current Visit: Yes Status: Acute (12) Abrasion Current Visit: Yes Status: Acute Cleared for Admission [facility] - Detox or Rehab [facility] Level of Care: Medically Managed Detox Regimen/Protocol: Librium [facility] Breath Alcohol Content Breath Alcohol Content: 0 Urine Drug Screen - Results Drug Screen Negative: No Urine Drug Screen Results: BZO-Benzodiazepines
[2018-03-07] MEDS ORDERED: P-EPHED 60MG/TRIPROLIDI 2.5MG TABLET PO PRN (12:18)
[2018-03-07] MEDS ORDERED: hydrOXYzine PAMOATE 25 MG CAPSULE (FP) PO PRN (12:18)
[2018-03-07] MEDS ORDERED: MENTHOL/PHENOL 1 EACH UD MM PRN (12:18)
[2018-03-07] MEDS ORDERED: MAG HYDROX/AL HYDROX/SIMETH 30 ML UNIT-DOSE CUP PO PRN (12:18)
[2018-03-07] MEDS ORDERED: LOPERAMIDE HCL 2 MG CAPSULE PO PRN (12:18)
[2018-03-07] MEDS ORDERED: ACETAMINOPHEN 325 MG TABLET (FP) PO PRN (12:18)
[2018-03-07] MEDS ORDERED: chlordiazePOXIDE HCL 25 MG CAPSULE PO PRN (12:18)
[2018-03-07] MEDS ORDERED: MAGNESIUM CITRATE 300 ML BOTTLE PO PRN (12:18)
[2018-03-07] MEDS ORDERED: guaiFENesin/D-METHORPHAN HB 10 ML UNIT-DOSE CUPS PO PRN (12:18)
[2018-03-07] MEDS: BACITRACIN 0.9 GM PACKET TP SCH ×2 (14:15→22:32)
--- NOTE | 2018-03-07 15:02 | EKG ---
Test Reason : Blood Pressure : / mmHG Vent. Rate : 098 BPM Atrial Rate : 098 BPM P-R Int : 136 ms QRS Dur : 072 ms QT Int : 334 ms P-R-T Axes : 070 -11 038 degrees QTc Int : 426 ms NORMAL SINUS RHYTHM SEPTAL INFARCT (CITED ON OR BEFORE 21-JUN-2017) ABNORMAL ECG WHEN COMPARED WITH ECG OF 23-JUN-2017 02:33, ST NO LONGER ELEVATED IN ANTERIOR LEADS Confirmed by CHIP OTERO MD ([id number]) on 03/07/2018 3:02:12 PM Referred By: Confirmed By:CHIP OTERO MD
[2018-03-07] MEDS: chlordiazePOXIDE HCL 25 MG CAPSULE PO SCH ×2 (17:31→22:32)
[2018-03-07 18:16] LABS: URINE APPEARANCE CLEAR; URINE BILIRUBIN NEGATIVE (<2.0 mg/dL); URINE COLOR AMBER; URINE GLUCOSE (UA) NEGATIVE (NEGATIVE); URINE KETONE 1+ (NEGATIVE); URINE LEUK ESTERASE 2+ (NEGATIVE); URINE NITRITE NEGATIVE (NEGATIVE); URINE PROTEIN 2+ (NEGATIVE); URINE UROBILINOGEN 4.0 E.U/dl mg/dL (0.2-1.0)
[2018-03-07 18:39] LABS: URINE BACTERIA RARE /hpf (NONE SEEN); URINE MUCUS MANY
[2018-03-07] MEDS: ATORVASTATIN CA 20 MG TABLET (FP) PO SCH (22:32)
[2018-03-07] MEDS: GABAPENTIN 300 MG CAPSULE (FP) PO SCH (22:32)
[2018-03-07] MEDS: THIAMINE HCL 100 MG TABLET (FP) PO SCH (22:32)
[2018-03-08] MEDS: chlordiazePOXIDE HCL 25 MG CAPSULE PO SCH ×4 (05:21→22:18)
[2018-03-08 09:58] LABS: HEMATOCRIT 42.1 % (35.4-49); HEMOGLOBIN 13.7 GM/dL (11.7-16.9); MCHC 32.4 g/dl (32.0-35.9); MEAN CELL VOLUME 98.7 fl (80-96); MEAN PLT VOLUME 9.2 fl (7.5-11.1); PLATELET COUNT 132 K/MM3 (134-434); RBC 4.27 M/mm3 (4.00-5.60); RDW 17.3 % (11.9-15.9); WHITE BLOOD COUNT 5.9 K/mm3 (4.0-10.0)
[2018-03-08 10:18] LABS: ALBUMIN 3.5 g/dl (3.4-5.0); ALK PHOS 100 U/L (45-117); ANION GAP 7 MMOL/L (8-16); BILIRUBIN,TOTAL 1.1 mg/dL (0.2-1); BLOOD UREA NITROGEN 16 mg/dL (7-18); CALCIUM 9.5 mg/dL (8.5-10.1); CHLORIDE 103 mmol/L (98-107); CO2 26 mmol/L (21-32); CREATININE 0.8 mg/dL (0.55-1.3); GLUCOSE,RANDOM 213 mg/dL (74-106); POTASSIUM 3.9 mmol/L (3.5-5.1); SGOT/AST 31 U/L (15-37); SGPT/ALT 51 U/L (13-61); SODIUM 137 mmol/L (136-145)
[2018-03-08] MEDS: BACITRACIN 0.9 GM PACKET TP SCH ×2 (10:27→22:17)
[2018-03-08] MEDS: GABAPENTIN 300 MG CAPSULE (FP) PO SCH ×2 (10:27→22:17)
[2018-03-08] MEDS: PANTOPRAZOLE 40 MG TABLET (FP) PO SCH (10:29)
[2018-03-08] MEDS: IBUPROFEN 400 MG TABLET (FP) PO PRN (10:29)
[2018-03-08] MEDS: PRENATAL VITAMINS W/ FOLIC ACID TABLET (FP) PO SCH (10:29)
[2018-03-08] MEDS: ASPIRIN COATED 81 MG TABLET.EC PO SCH (10:29)
[2018-03-08] MEDS: amLODIPine BESYLATE 10 MG TABLET (FP) PO SCH (10:29)
--- NOTE | 2018-03-08 16:35 | PN ---
[facility] CIWA - CIWA Score Nausea/Vomitin Muscle Tremors: 4-Moderate,w/Arms Extend Anxiety: 4-Mod. Anxious/Guarded Agitation: 4-Moderately Restless Paroxysmal Sweats: 3 Orientation: 0-Oriented Tacttile Disturbances: 1-Very Mild Itch/Numbness Auditory Disturbances: 0-None Visual Disturbances: 0-None Headache: 0-None Present CIWA-Ar Total Score: 18 BHS Progress Note (SOAP) Subjective: Tremor, sweating, anxious Objective: 03/08/18 16:27 Last Vital Signs Temp Pulse Resp BP Pulse Ox 99.5 F 97 H 16 128/84 03/08/18 10:00 03/08/18 14:18 03/08/18 14:18 03/08/18 14:18 Laboratory Tests 03/07/18 03/08/18 03/08/18 15:45 06:00 06:00 WBC 5.9 RBC 4.27 Hgb 13.7 Hct 42.1 MCV 98.7 H MCH 32.0 MCHC 32.4 RDW 17.3 H Plt Count 132 L D MPV 9.2 Sodium 137 Potassium 3.9 Chloride 103 Carbon Dioxide 26 Anion Gap 7 L BUN 16 Creatinine 0.8 Creat Clearance w eGFR > 60 Random Glucose 213 H Calcium 9.5 Total Bilirubin 1.1 H AST 31 ALT 51 Alkaline Phosphatase 100 Total Protein 8.0 Albumin 3.5 Urine Color Jennifer Urine Appearance Clear Urine pH 6.0 Ur Specific [place] 1.030 Urine Protein 2+ H Urine Glucose (UA) Negative Urine Ketones 1+ H Urine Blood 1+ H Urine Nitrite Negative Urine Bilirubin Negative Urine Urobilinogen 4.0 e.u/dl Ur Leukocyte Esterase 2+ H Urine WBC (Auto) 106 Urine RBC (Auto) 7 Urine Bacteria Rare Urine Mucus Many RPR Titer 03/08/18 06:00 WBC RBC Hgb Hct MCV MCH MCHC RDW Plt Count MPV Sodium Potassium Chloride Carbon Dioxide Anion Gap BUN Creatinine Creat Clearance w eGFR Random Glucose Calcium Total Bilirubin AST ALT Alkaline Phosphatase Total Protein Albumin Urine Color Urine Appearance Urine pH Ur Specific [place] Urine Protein Urine Glucose (UA) Urine Ketones Urine Blood Urine Nitrite Urine Bilirubin Urine Urobilinogen Ur Leukocyte Esterase Urine WBC (Auto) Urine RBC (Auto) Urine Bacteria Urine Mucus RPR Titer Nonreactive Labs reviewed: serum glucose 213, plt 132, UA abnormal Assessment: 03/08/18 16:28 Withdrawal sxs Noted with mild thrombocytopenia, hyperglycemia and abnormal UA Plan: Continue detox Mild thrombocytopenia: stable, follow up with your PCP for monitoring Hyperglycemia: change ensure to glucerna, start finger stick glucose TID with insulin coverage, repeat fasting glucose, send HbA1c, start oral antidiabetic medication if warranted Abnormal UA: encouraged PO water hydration, repeat UA
[2018-03-08] MEDS: INSULIN SLIDING SCALE (NOVOLOG) 1 VIAL SQ SCH (17:05)
[2018-03-08] MEDS: ATORVASTATIN CA 20 MG TABLET (FP) PO SCH (22:16)
[2018-03-08] MEDS: THIAMINE HCL 100 MG TABLET (FP) PO SCH (22:17)
[2018-03-09] MEDS: chlordiazePOXIDE HCL 25 MG CAPSULE PO SCH ×2 (05:48→10:35)
[2018-03-09] MEDS: INSULIN SLIDING SCALE (NOVOLOG) 1 VIAL SQ SCH ×3 (07:01→16:57)
[2018-03-09] MEDS: ASPIRIN COATED 81 MG TABLET.EC PO SCH (10:35)
[2018-03-09] MEDS: PANTOPRAZOLE 40 MG TABLET (FP) PO SCH (10:35)
[2018-03-09] MEDS: GABAPENTIN 300 MG CAPSULE (FP) PO SCH ×2 (10:35→22:51)
[2018-03-09] MEDS: PRENATAL VITAMINS W/ FOLIC ACID TABLET (FP) PO SCH (10:35)
[2018-03-09] MEDS: amLODIPine BESYLATE 10 MG TABLET (FP) PO SCH (10:35)
[2018-03-09] MEDS: BACITRACIN 0.9 GM PACKET TP SCH ×2 (10:36→22:52)
[2018-03-09] MEDS: IBUPROFEN 400 MG TABLET (FP) PO PRN (10:38)
--- NOTE | 2018-03-09 16:40 | PN ---
S CIWA - CIWA Score Nausea/Vomitin Muscle Tremors: 2 Anxiety: 2 Agitation: 2 Paroxysmal Sweats: 1-Minimal Palms Moist Orientation: 0-Oriented Tacttile Disturbances: 1-Very Mild Itch/Numbness Auditory Disturbances: 1-Very Mild Visual Disturbances: 1-Very Mild Sensitivity Headache: 2-Mild CIWA-Ar Total Score: 14 S Progress Note (SOAP) Subjective: alert,irritable,anxious,feel weak,interrupted sleep Objective: 03/09/18 16:38 Vital Signs Temperature 97.4 F L 03/09/18 15:37 Pulse Rate 99 H 03/09/18 15:37 Respiratory Rate 18 03/09/18 15:37 Blood Pressure 106/69 03/09/18 15:37 O2 Sat by Pulse Oximetry (%) Laboratory Last Values WBC 5.9 K/mm3 (4.0-10.0) 03/08/18 06:00 RBC 4.27 M/mm3 (4.00-5.60) 03/08/18 06:00 Hgb 13.7 GM/dL (11.7-16.9) 03/08/18 06:00 Hct 42.1 % (35.4-49) 03/08/18 06:00 MCV 98.7 fl (80-96) H 03/08/18 06:00 MCH 32.0 pg (25.7-33.7) 03/08/18 06:00 MCHC 32.4 g/dl (32.0-35.9) 03/08/18 06:00 RDW 17.3 % (11.9-15.9) H 03/08/18 06:00 Plt Count 132 K/MM3 (134-434) L D 03/08/18 06:00 MPV 9.2 fl (7.5-11.1) 03/08/18 06:00 Sodium 137 mmol/L (136-145) 03/08/18 06:00 Potassium 3.9 mmol/L (3.5-5.1) 03/08/18 06:00 Chloride 103 mmol/L (98-107) 03/08/18 06:00 Carbon Dioxide 26 mmol/L (21-32) 03/08/18 06:00 Anion Gap 7 MMOL/L (8-16) L 03/08/18 06:00 BUN 16 mg/dL (7-18) 03/08/18 06:00 Creatinine 0.8 mg/dL (0.55-1.3) 03/08/18 06:00 Creat Clearance w eGFR > 60 (>60) 03/08/18 06:00 POC Glucometer 165 UNITS (80-120) 03/09/18 11:46 Random Glucose 213 mg/dL (74-106) H 03/08/18 06:00 Calcium 9.5 mg/dL (8.5-10.1) 03/08/18 06:00 Total Bilirubin 1.1 mg/dL (0.2-1) H 03/08/18 06:00 AST 31 U/L (15-37) 03/08/18 06:00 ALT 51 U/L (13-61) 03/08/18 06:00 Alkaline Phosphatase 100 U/L (45-117) 03/08/18 06:00 Total Protein 8.0 g/dl (6.4-8.2) 03/08/18 06:00 Albumin 3.5 g/dl (3.4-5.0) 03/08/18 06:00 Urine Color Jennifer 03/07/18 15:45 Urine Appearance Clear 03/07/18 15:45 Urine pH 6.0 (5.0-8.0) 03/07/18 15:45 Ur Specific [place] 1.030 (1.010-1.035) 03/07/18 15:45 Urine Protein 2+ (NEGATIVE) H 03/07/18 15:45 Urine Glucose (UA) Negative (NEGATIVE) 03/07/18 15:45 Urine Ketones 1+ (NEGATIVE) H 03/07/18 15:45 Urine Blood 1+ (NEGATIVE) H 03/07/18 15:45 Urine Nitrite Negative (NEGATIVE) 03/07/18 15:45 Urine Bilirubin Negative (<2.0 mg/dL) 03/07/18 15:45 Urine Urobilinogen 4.0 e.u/dl mg/dL (0.2-1.0) 03/07/18 15:45 Ur Leukocyte Esterase 2+ (NEGATIVE) H 03/07/18 15:45 Urine WBC (Auto) 106 /hpf (3-5) 03/07/18 15:45 Urine RBC (Auto) 7 /hpf (0-3) 03/07/18 15:45 Urine Bacteria Rare /hpf (NONE SEEN) 03/07/18 15:45 Urine Mucus Many 03/07/18 15:45 RPR Titer Nonreactive (NONREACTIVE) 03/08/18 06:00 Assessment: 03/09/18 16:39 withdrawal symptom Plan: continue detox,bactrim ds 1 tab po bid for uti
[2018-03-09] MEDS: chlordiazePOXIDE 5 MG CAPSULE PO SCH ×2 (17:59→22:55)
[2018-03-09] MEDS: MAGNESIUM HYDROX 2400MG/30ML ORAL SUSPENSION 30 ML CUP PO PRN (19:17)
[2018-03-09] MEDS: SULFAMETHOXAZOLE/TRIMETHOPRIM 800MG/160MG D.S. TABLET PO SCH (22:51)
[2018-03-09] MEDS: ATORVASTATIN CA 20 MG TABLET (FP) PO SCH (22:51)
[2018-03-09] MEDS: THIAMINE HCL 100 MG TABLET (FP) PO SCH (22:52)
[2018-03-09] MEDS: MELATONIN 5 MG TABLETS PO PRN (22:56)
[2018-03-10] MEDS: chlordiazePOXIDE 5 MG CAPSULE PO SCH ×3 (06:10→12:13)
[2018-03-10] MEDS: INSULIN SLIDING SCALE (NOVOLOG) 1 VIAL SQ SCH ×3 (06:27→18:08)
[2018-03-10] MEDS: GABAPENTIN 300 MG CAPSULE (FP) PO SCH ×2 (10:48→22:28)
[2018-03-10] MEDS: ASPIRIN COATED 81 MG TABLET.EC PO SCH (10:48)
[2018-03-10] MEDS: amLODIPine BESYLATE 10 MG TABLET (FP) PO SCH (10:48)
[2018-03-10] MEDS: PRENATAL VITAMINS W/ FOLIC ACID TABLET (FP) PO SCH (10:48)
[2018-03-10] MEDS: SULFAMETHOXAZOLE/TRIMETHOPRIM 800MG/160MG D.S. TABLET PO SCH ×2 (10:48→22:28)
[2018-03-10] MEDS: BACITRACIN 0.9 GM PACKET TP SCH ×2 (10:48→22:28)
[2018-03-10] MEDS: PANTOPRAZOLE 40 MG TABLET (FP) PO SCH (10:49)
[2018-03-10] MEDS ORDERED: metFORMIN HCL 500 MG TABLET (FP) PO ONE (11:23)
[2018-03-10 11:56] LABS: URINE APPEARANCE TURBID; URINE BILIRUBIN NEGATIVE (<2.0 mg/dL); URINE COLOR DKYELLOW; URINE GLUCOSE (UA) NEGATIVE (NEGATIVE); URINE KETONE NEGATIVE (NEGATIVE); URINE LEUK ESTERASE 2+ (NEGATIVE); URINE NITRITE NEGATIVE (NEGATIVE); URINE PROTEIN NEGATIVE (NEGATIVE); URINE UROBILINOGEN NEGATIVE mg/dL (0.2-1.0)
[2018-03-10 12:05] LABS: EPI CELLS RARE /HPF (FEW); URINE BACTERIA RARE /hpf (NONE SEEN); URINE MUCUS RARE
[2018-03-10] MEDS: metFORMIN HCL 500 MG TABLET (FP) PO SCH (16:30)
--- NOTE | 2018-03-10 17:04 | PN ---
BHS Progress Note (SOAP) Subjective: Anxious, tremor, increased flatulence Objective: 03/10/18 17:01 Last Vital Signs Temp Pulse Resp BP Pulse Ox 98.0 F 99 H 16 132/81 03/10/18 14:02 03/10/18 14:02 03/10/18 14:02 03/10/18 14:02 Laboratory Tests 03/07/18 03/08/18 03/08/18 15:45 06:00 06:00 WBC 5.9 RBC 4.27 Hgb 13.7 Hct 42.1 MCV 98.7 H MCH 32.0 MCHC 32.4 RDW 17.3 H Plt Count 132 L D MPV 9.2 Sodium 137 Potassium 3.9 Chloride 103 Carbon Dioxide 26 Anion Gap 7 L BUN 16 Creatinine 0.8 Creat Clearance w eGFR > 60 POC Glucometer Random Glucose 213 H Calcium 9.5 Total Bilirubin 1.1 H AST 31 ALT 51 Alkaline Phosphatase 100 Total Protein 8.0 Albumin 3.5 Urine Color Jennifer Urine Appearance Clear Urine pH 6.0 Ur Specific [place] 1.030 Urine Protein 2+ H Urine Glucose (UA) Negative Urine Ketones 1+ H Urine Blood 1+ H Urine Nitrite Negative Urine Bilirubin Negative Urine Urobilinogen 4.0 e.u/dl Ur Leukocyte Esterase 2+ H Urine WBC (Auto) 106 Urine RBC (Auto) 7 Ur Epithelial Cells Urine Bacteria Rare Urine Mucus Many RPR Titer 03/08/18 03/08/18 03/09/18 06:00 17:02 05:50 WBC RBC Hgb Hct MCV MCH MCHC RDW Plt Count MPV Sodium Potassium Chloride Carbon Dioxide Anion Gap BUN Creatinine Creat Clearance w eGFR POC Glucometer 125 112 Random Glucose Calcium Total Bilirubin AST ALT Alkaline Phosphatase Total Protein Albumin Urine Color Urine Appearance Urine pH Ur Specific [place] Urine Protein Urine Glucose (UA) Urine Ketones Urine Blood Urine Nitrite Urine Bilirubin Urine Urobilinogen Ur Leukocyte Esterase Urine WBC (Auto) Urine RBC (Auto) Ur Epithelial Cells Urine Bacteria Urine Mucus RPR Titer Nonreactive 03/09/18 03/09/18 03/10/18 11:46 16:20 06:09 WBC RBC Hgb Hct MCV MCH MCHC RDW Plt Count MPV Sodium Potassium Chloride Carbon Dioxide Anion Gap BUN Creatinine Creat Clearance w eGFR POC Glucometer 165 126 128 Random Glucose Calcium Total Bilirubin AST ALT Alkaline Phosphatase Total Protein Albumin Urine Color Urine Appearance Urine pH Ur Specific [place] Urine Protein Urine Glucose (UA) Urine Ketones Urine Blood Urine Nitrite Urine Bilirubin Urine Urobilinogen Ur Leukocyte Esterase Urine WBC (Auto) Urine RBC (Auto) Ur Epithelial Cells Urine Bacteria Urine Mucus RPR Titer 03/10/18 07:30 WBC RBC Hgb Hct MCV MCH MCHC RDW Plt Count MPV Sodium Potassium Chloride Carbon Dioxide Anion Gap BUN Creatinine Creat Clearance w eGFR POC Glucometer Random Glucose Calcium Total Bilirubin AST ALT Alkaline Phosphatase Total Protein Albumin Urine Color Dkyellow Urine Appearance Turbid Urine pH 7.0 Ur Specific [place] 1.018 Urine Protein Negative Urine Glucose (UA) Negative Urine Ketones Negative Urine Blood Negative Urine Nitrite Negative Urine Bilirubin Negative Urine Urobilinogen Negative Ur Leukocyte Esterase 2+ H Urine WBC (Auto) 163 Urine RBC (Auto) 1 Ur Epithelial Cells Rare Urine Bacteria Rare Urine Mucus Rare RPR Titer Labs reviewed: hyperglycemia Assessment: 03/10/18 17:01 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
[2018-03-10] MEDS: chlordiazePOXIDE HCL 10 MG CAPSULE PO SCH ×2 (18:10→22:28)
[2018-03-10] MEDS: THIAMINE HCL 100 MG TABLET (FP) PO SCH (22:28)
[2018-03-10] MEDS: ATORVASTATIN CA 20 MG TABLET (FP) PO SCH (22:28)
[2018-03-10] MEDS: MELATONIN 5 MG TABLETS PO PRN (22:31)
[2018-03-11] MEDS: chlordiazePOXIDE HCL 10 MG CAPSULE PO SCH ×2 (05:50→10:29)
[2018-03-11] MEDS: INSULIN SLIDING SCALE (NOVOLOG) 1 VIAL SQ SCH ×2 (07:24→12:09)
[2018-03-11] MEDS: metFORMIN HCL 500 MG TABLET (FP) PO SCH ×2 (07:24→17:24)
[2018-03-11] MEDS: ASPIRIN COATED 81 MG TABLET.EC PO SCH (10:27)
[2018-03-11] MEDS: BACITRACIN 0.9 GM PACKET TP SCH ×2 (10:27→23:21)
[2018-03-11] MEDS: PANTOPRAZOLE 40 MG TABLET (FP) PO SCH (10:27)
[2018-03-11] MEDS: amLODIPine BESYLATE 10 MG TABLET (FP) PO SCH (10:27)
[2018-03-11] MEDS: SULFAMETHOXAZOLE/TRIMETHOPRIM 800MG/160MG D.S. TABLET PO SCH ×2 (10:27→23:21)
[2018-03-11] MEDS: PRENATAL VITAMINS W/ FOLIC ACID TABLET (FP) PO SCH (10:27)
[2018-03-11] MEDS: GABAPENTIN 300 MG CAPSULE (FP) PO SCH ×2 (10:27→23:21)
--- NOTE | 2018-03-11 13:13 | PN ---
[facility] Progress Note (SOAP) Subjective: Anxious, restless, interrupted sleep Objective: 03/11/18 13:08 Last Vital Signs Temp Pulse Resp BP Pulse Ox 97.4 F L 99 H 18 135/85 03/11/18 09:30 03/11/18 09:30 03/11/18 09:30 03/11/18 09:30 Laboratory Tests 03/07/18 03/08/18 03/08/18 15:45 06:00 06:00 WBC 5.9 RBC 4.27 Hgb 13.7 Hct 42.1 MCV 98.7 H MCH 32.0 MCHC 32.4 RDW 17.3 H Plt Count 132 L D MPV 9.2 Sodium 137 Potassium 3.9 Chloride 103 Carbon Dioxide 26 Anion Gap 7 L BUN 16 Creatinine 0.8 Creat Clearance w eGFR > 60 POC Glucometer Random Glucose 213 H Calcium 9.5 Total Bilirubin 1.1 H AST 31 ALT 51 Alkaline Phosphatase 100 Total Protein 8.0 Albumin 3.5 Urine Color Jennifer Urine Appearance Clear Urine pH 6.0 Ur Specific [place] 1.030 Urine Protein 2+ H Urine Glucose (UA) Negative Urine Ketones 1+ H Urine Blood 1+ H Urine Nitrite Negative Urine Bilirubin Negative Urine Urobilinogen 4.0 e.u/dl Ur Leukocyte Esterase 2+ H Urine WBC (Auto) 106 Urine RBC (Auto) 7 Ur Epithelial Cells Urine Bacteria Rare Urine Mucus Many RPR Titer 03/08/18 03/08/18 03/09/18 06:00 17:02 05:50 WBC RBC Hgb Hct MCV MCH MCHC RDW Plt Count MPV Sodium Potassium Chloride Carbon Dioxide Anion Gap BUN Creatinine Creat Clearance w eGFR POC Glucometer 125 112 Random Glucose Calcium Total Bilirubin AST ALT Alkaline Phosphatase Total Protein Albumin Urine Color Urine Appearance Urine pH Ur Specific [place] Urine Protein Urine Glucose (UA) Urine Ketones Urine Blood Urine Nitrite Urine Bilirubin Urine Urobilinogen Ur Leukocyte Esterase Urine WBC (Auto) Urine RBC (Auto) Ur Epithelial Cells Urine Bacteria Urine Mucus RPR Titer Nonreactive 03/09/18 03/09/18 03/10/18 11:46 16:20 06:09 WBC RBC Hgb Hct MCV MCH MCHC RDW Plt Count MPV Sodium Potassium Chloride Carbon Dioxide Anion Gap BUN Creatinine Creat Clearance w eGFR POC Glucometer 165 126 128 Random Glucose Calcium Total Bilirubin AST ALT Alkaline Phosphatase Total Protein Albumin Urine Color Urine Appearance Urine pH Ur Specific [place] Urine Protein Urine Glucose (UA) Urine Ketones Urine Blood Urine Nitrite Urine Bilirubin Urine Urobilinogen Ur Leukocyte Esterase Urine WBC (Auto) Urine RBC (Auto) Ur Epithelial Cells Urine Bacteria Urine Mucus RPR Titer 03/10/18 03/10/18 03/11/18 07:30 16:58 05:49 WBC RBC Hgb Hct MCV MCH MCHC RDW Plt Count MPV Sodium Potassium Chloride Carbon Dioxide Anion Gap BUN Creatinine Creat Clearance w eGFR POC Glucometer 128 114 Random Glucose Calcium Total Bilirubin AST ALT Alkaline Phosphatase Total Protein Albumin Urine Color Dkyellow Urine Appearance Turbid Urine pH 7.0 Ur Specific [place] 1.018 Urine Protein Negative Urine Glucose (UA) Negative Urine Ketones Negative Urine Blood Negative Urine Nitrite Negative Urine Bilirubin Negative Urine Urobilinogen Negative Ur Leukocyte Esterase 2+ H Urine WBC (Auto) 163 Urine RBC (Auto) 1 Ur Epithelial Cells Rare Urine Bacteria Rare Urine Mucus Rare RPR Titer Labs reviewed: abnormal UA Assessment: 03/11/18 13:12 Withdrawal sxs Noted with abnormal UA Plan: Continue detox Abnormal UA: send urine culture to rule out UTI
[2018-03-11] MEDS: ATORVASTATIN CA 20 MG TABLET (FP) PO SCH (23:21)
[2018-03-11] MEDS: THIAMINE HCL 100 MG TABLET (FP) PO SCH (23:21)
[2018-03-12] MEDS: metFORMIN HCL 500 MG TABLET (FP) PO SCH ×2 (08:01→17:08)
--- NOTE | 2018-03-12 10:18 | DS ---
[facility] Detox Discharge Summary Admission Date: 03/07/18 Discharge Date: 03/12/18 - History Present History: Alcohol Dependence Additional Comments: Patient noted with large leukocytes in UA. Ordered for urine culture to rule out UTI. Follow up on urine culture result and treat for UTI if warranted. Pertinent Past History: DMT2 (newly dx) GERD Hepatitis C HLD HTN Neuropathy - Physical Exam Results Vital Signs: Vital Signs Temperature 97.8 F 03/12/18 10:09 Pulse Rate 100 H 03/12/18 10:09 Respiratory Rate 17 03/12/18 10:09 Blood Pressure 115/80 03/12/18 10:09 O2 Sat by Pulse Oximetry (%) Pertinent Admission Physical Exam Findings: Withdrawal symptoms Laboratory Tests 03/07/18 03/08/18 03/08/18 15:45 06:00 06:00 WBC 5.9 RBC 4.27 Hgb 13.7 Hct 42.1 MCV 98.7 H MCH 32.0 MCHC 32.4 RDW 17.3 H Plt Count 132 L D MPV 9.2 Sodium 137 Potassium 3.9 Chloride 103 Carbon Dioxide 26 Anion Gap 7 L BUN 16 Creatinine 0.8 Creat Clearance w eGFR > 60 POC Glucometer Random Glucose 213 H Calcium 9.5 Total Bilirubin 1.1 H AST 31 ALT 51 Alkaline Phosphatase 100 Total Protein 8.0 Albumin 3.5 Urine Color Jennifer Urine Appearance Clear Urine pH 6.0 Ur Specific [place] 1.030 Urine Protein 2+ H Urine Glucose (UA) Negative Urine Ketones 1+ H Urine Blood 1+ H Urine Nitrite Negative Urine Bilirubin Negative Urine Urobilinogen 4.0 e.u/dl Ur Leukocyte Esterase 2+ H Urine WBC (Auto) 106 Urine RBC (Auto) 7 Ur Epithelial Cells Urine Bacteria Rare Urine Mucus Many RPR Titer 03/08/18 03/08/18 03/09/18 06:00 17:02 05:50 WBC RBC Hgb Hct MCV MCH MCHC RDW Plt Count MPV Sodium Potassium Chloride Carbon Dioxide Anion Gap BUN Creatinine Creat Clearance w eGFR POC Glucometer 125 112 Random Glucose Calcium Total Bilirubin AST ALT Alkaline Phosphatase Total Protein Albumin Urine Color Urine Appearance Urine pH Ur Specific [place] Urine Protein Urine Glucose (UA) Urine Ketones Urine Blood Urine Nitrite Urine Bilirubin Urine Urobilinogen Ur Leukocyte Esterase Urine WBC (Auto) Urine RBC (Auto) Ur Epithelial Cells Urine Bacteria Urine Mucus RPR Titer Nonreactive 03/09/18 03/09/18 03/10/18 11:46 16:20 06:09 WBC RBC Hgb Hct MCV MCH MCHC RDW Plt Count MPV Sodium Potassium Chloride Carbon Dioxide Anion Gap BUN Creatinine Creat Clearance w eGFR POC Glucometer 165 126 128 Random Glucose Calcium Total Bilirubin AST ALT Alkaline Phosphatase Total Protein Albumin Urine Color Urine Appearance Urine pH Ur Specific [place] Urine Protein Urine Glucose (UA) Urine Ketones Urine Blood Urine Nitrite Urine Bilirubin Urine Urobilinogen Ur Leukocyte Esterase Urine WBC (Auto) Urine RBC (Auto) Ur Epithelial Cells Urine Bacteria Urine Mucus RPR Titer 03/10/18 03/10/18 03/11/18 07:30 16:58 05:49 WBC RBC Hgb Hct MCV MCH MCHC RDW Plt Count MPV Sodium Potassium Chloride Carbon Dioxide Anion Gap BUN Creatinine Creat Clearance w eGFR POC Glucometer 128 114 Random Glucose Calcium Total Bilirubin AST ALT Alkaline Phosphatase Total Protein Albumin Urine Color Dkyellow Urine Appearance Turbid Urine pH 7.0 Ur Specific [place] 1.018 Urine Protein Negative Urine Glucose (UA) Negative Urine Ketones Negative Urine Blood Negative Urine Nitrite Negative Urine Bilirubin Negative Urine Urobilinogen Negative Ur Leukocyte Esterase 2+ H Urine WBC (Auto) 163 Urine RBC (Auto) 1 Ur Epithelial Cells Rare Urine Bacteria Rare Urine Mucus Rare RPR Titer 03/11/18 03/12/18 16:29 05:26 WBC RBC Hgb Hct MCV MCH MCHC RDW Plt Count MPV Sodium Potassium Chloride Carbon Dioxide Anion Gap BUN Creatinine Creat Clearance w eGFR POC Glucometer 96 93 Random Glucose Calcium Total Bilirubin AST ALT Alkaline Phosphatase Total Protein Albumin Urine Color Urine Appearance Urine pH Ur Specific [place] Urine Protein Urine Glucose (UA) Urine Ketones Urine Blood Urine Nitrite Urine Bilirubin Urine Urobilinogen Ur Leukocyte Esterase Urine WBC (Auto) Urine RBC (Auto) Ur Epithelial Cells Urine Bacteria Urine Mucus RPR Titer Labs reviewed: abnormal UA (encouraged PO water intake, follow up on urine cx) - Treatment Hospital Course: Detox Protocol Followed, Detoxed Safely, Responded well, Discharged Condition Good, Rehab Referral Accepted - Medication Discharge Medications: Ambulatory Orders Amlodipine Besylate [Norvasc -] 10 mg PO DAILY #30 tablet 06/20/17 Aspirin Coated [Ecotrin -] 81 mg PO DAILY #30 tablet.ec 06/20/17 Gabapentin [Neurontin -] 300 mg PO BID #60 capsule 06/20/17 Pantoprazole Sodium [Protonix -] 40 mg PO DAILY #30 tab 06/20/17 Simvastatin [Zocor -] 40 mg PO HS #30 tablet 06/20/17 - Diagnosis (1) Hyperglycemia Current Visit: Yes Status: Acute (2) Abnormal finding on urinalysis Current Visit: Yes Status: Acute (3) Thrombocytopenia Current Visit: Yes Status: Acute (4) Neuropathy Current Visit: Yes Status: Chronic (5) Alcohol dependence with uncomplicated withdrawal Current Visit: Yes Status: Acute (6) Essential hypertension Current Visit: Yes Status: Chronic (7) Gastroesophageal reflux disease Current Visit: Yes Status: Chronic (8) Hepatitis C Current Visit: Yes Status: Chronic Qualifiers: Viral hepatitis chronicity: chronic Hepatic coma status: without hepatic coma Qualified Code(s): B18.2 - Chronic viral hepatitis C (9) Nicotine dependence Current Visit: Yes Status: Chronic Qualifiers: Nicotine product type: cigarettes Substance use status: in withdrawal Qualified Code(s): F17.213 - Nicotine dependence, cigarettes, with withdrawal (10) hypercholesterolemia Current Visit: Yes Status: Chronic (11) Type 2 diabetes mellitus with hyperglycemia Current Visit: Yes Status: Acute - AMA Did Patient Leave Against Medical Advice: No (Patient transferred to [facility]. F/U with PCP in 1 week after rehab)
[2018-03-12] MEDS: amLODIPine BESYLATE 10 MG TABLET (FP) PO SCH (10:25)
[2018-03-12] MEDS: PRENATAL VITAMINS W/ FOLIC ACID TABLET (FP) PO SCH (10:25)
[2018-03-12] MEDS: GABAPENTIN 300 MG CAPSULE (FP) PO SCH ×2 (10:25→21:49)
[2018-03-12] MEDS: ASPIRIN COATED 81 MG TABLET.EC PO SCH (10:26)
[2018-03-12] MEDS: SULFAMETHOXAZOLE/TRIMETHOPRIM 800MG/160MG D.S. TABLET PO SCH ×2 (10:26→21:49)
[2018-03-12] MEDS: BACITRACIN 0.9 GM PACKET TP SCH ×2 (10:26→21:48)
[2018-03-12] MEDS: PANTOPRAZOLE 40 MG TABLET (FP) PO SCH (10:26)
[2018-03-12] MEDS: ATORVASTATIN CA 20 MG TABLET (FP) PO SCH (21:49)
[2018-03-12] MEDS: THIAMINE HCL 100 MG TABLET (FP) PO SCH (21:49)
[2018-03-13] MEDS: SIMETHICONE 80 MG TAB.CHEW (FP) PO PRN ×3 (05:58→23:45)
--- NOTE | 2018-03-13 06:14 | HP ---
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 Historical narrative remains consistent. He reports seeing a therapist in 2009 to address depression while living in [place]. Told freelance copywriter that depression stemmed from the fact he was homeless and abusing alcohol. States that he was not prescribed medication. Denies history of previous psychiatric hospitalization or suicidal attempt. At present, reports doing well but sleeping poorly Physical/Sexual Abuse/Trauma History: Denies history of emotional, physical or sexual as well as DV relationship Additional Comment: Reports history of multiple arrests including at least 2 felony convictions. Denies being on parole/probation currently Vital Signs: Vital Signs - 24 hr 03/12/18 03/12/18 03/12/18 06:35 10:09 15:19 Temperature 97.5 F L 97.8 F 98.3 F Pulse Rate 95 H 100 H 95 H Respiratory 18 17 18 Rate Blood Pressure 105/62 115/80 130/73 03/13/18 03/13/18 00:30 03:30 Temperature Pulse Rate Respiratory 18 18 Rate Blood Pressure Allergies/Adverse Reactions: Allergies Allergy/AdvReac Type Severity Reaction Status Date / Time No Known Allergies Allergy Verified 03/07/18 11:31 Date of last physical exam: 03/07/18 Concur with the findings of this exam: Yes - Substance Abuse/Tx History Hx Alcohol Use: Yes Hx Substance Use: No Substance Use Type: Alcohol (Started drinking alcohol at age 17, consumes 3 pints of yariel daily. Last drank on 03/07/18) Hx Substance Use Treatment: Yes (5 previous inpt detox & 3 inpt rehab admissions @ [facility]) Mental Status Exam - Mental Status Exam Alert and Oriented to: Person Cognitive Function: Fair Patient Appearance: Well Groomed Mood: Hopeful, Euthymic Affect: Appropriate Patient Behavior: Cooperative Speech Pattern: Clear Voice Loudness: Normal Thought Process: Intact, Goal Oriented Hallucinations: Denies Suicidal Ideation: Denies Homicidal Ideation: Denies Insight/Judgement: Fair Sleep: Poorly Appetite: Good Muscle strength/Tone: Rigidity Gait/Station: Normal Psychiatric Findings - Problem List ([place] 1, 2,3) (1) Alcohol dependence Current Visit: Yes Status: Acute (2) Nicotine dependence Current Visit: Yes Status: Chronic Qualifiers: Nicotine product type: cigarettes Substance use status: in withdrawal Qualified Code(s): F17.213 - Nicotine dependence, cigarettes, with withdrawal (3) Alcohol-induced sleep disorder Current Visit: Yes Status: Acute (4) Essential hypertension Current Visit: Yes Status: Chronic (5) hypercholesterolemia Current Visit: Yes Status: Chronic (6) Type 2 diabetes mellitus with hyperglycemia Current Visit: Yes Status: Chronic (7) Gastroesophageal reflux disease Current Visit: Yes Status: Chronic (8) Hepatitis C Current Visit: Yes Status: Chronic Qualifiers: Viral hepatitis chronicity: chronic Hepatic coma status: without hepatic coma Qualified Code(s): B18.2 - Chronic viral hepatitis C (9) Neuropathy Current Visit: Yes Status: Chronic (10) s/p surgery for fx left elbow Current Visit: No Status: Suspected - Initial Treatment Plan Initial Treatment Plan: 1) Start Melatonin 5 mg po HS prn for insomnia. 2) Monitor progress
[2018-03-13] MEDS: metFORMIN HCL 500 MG TABLET (FP) PO SCH ×2 (07:09→17:30)
[2018-03-13] MEDS: GABAPENTIN 300 MG CAPSULE (FP) PO SCH ×2 (10:21→21:18)
[2018-03-13] MEDS: PRENATAL VITAMINS W/ FOLIC ACID TABLET (FP) PO SCH (10:21)
[2018-03-13] MEDS: PANTOPRAZOLE 40 MG TABLET (FP) PO SCH (10:21)
[2018-03-13] MEDS: amLODIPine BESYLATE 10 MG TABLET (FP) PO SCH (10:21)
[2018-03-13] MEDS: SULFAMETHOXAZOLE/TRIMETHOPRIM 800MG/160MG D.S. TABLET PO SCH ×2 (10:21→21:18)
[2018-03-13] MEDS: ASPIRIN COATED 81 MG TABLET.EC PO SCH (10:22)
[2018-03-13] MEDS: BACITRACIN 0.9 GM PACKET TP SCH ×2 (10:23→21:18)
[2018-03-13] MEDS: THIAMINE HCL 100 MG TABLET (FP) PO SCH (21:18)
[2018-03-13] MEDS: ATORVASTATIN CA 20 MG TABLET (FP) PO SCH (21:18)
[2018-03-14] MEDS: metFORMIN HCL 500 MG TABLET (FP) PO SCH ×2 (06:47→17:02)
[2018-03-14] MEDS: BACITRACIN 0.9 GM PACKET TP SCH ×2 (10:31→21:47)
[2018-03-14] MEDS: GABAPENTIN 300 MG CAPSULE (FP) PO SCH ×2 (10:32→21:48)
[2018-03-14] MEDS: ASPIRIN COATED 81 MG TABLET.EC PO SCH (10:32)
[2018-03-14] MEDS: PANTOPRAZOLE 40 MG TABLET (FP) PO SCH (10:32)
[2018-03-14] MEDS: amLODIPine BESYLATE 10 MG TABLET (FP) PO SCH (10:32)
[2018-03-14] MEDS: SULFAMETHOXAZOLE/TRIMETHOPRIM 800MG/160MG D.S. TABLET PO SCH ×2 (10:32→21:47)
[2018-03-14] MEDS: PRENATAL VITAMINS W/ FOLIC ACID TABLET (FP) PO SCH (10:32)
[2018-03-14] MEDS: SIMETHICONE 80 MG TAB.CHEW (FP) PO PRN ×2 (10:33→23:43)
[2018-03-14] MEDS: THIAMINE HCL 100 MG TABLET (FP) PO SCH (21:47)
[2018-03-14] MEDS: ATORVASTATIN CA 20 MG TABLET (FP) PO SCH (21:48)
[2018-03-15] MEDS: metFORMIN HCL 500 MG TABLET (FP) PO SCH ×2 (07:07→17:01)
[2018-03-15] MEDS: ASPIRIN COATED 81 MG TABLET.EC PO SCH (10:23)
[2018-03-15] MEDS: GABAPENTIN 300 MG CAPSULE (FP) PO SCH ×2 (10:23→21:06)
[2018-03-15] MEDS: PRENATAL VITAMINS W/ FOLIC ACID TABLET (FP) PO SCH (10:23)
[2018-03-15] MEDS: SULFAMETHOXAZOLE/TRIMETHOPRIM 800MG/160MG D.S. TABLET PO SCH ×2 (10:23→21:06)
[2018-03-15] MEDS: amLODIPine BESYLATE 10 MG TABLET (FP) PO SCH (10:23)
[2018-03-15] MEDS: BACITRACIN 0.9 GM PACKET TP SCH ×2 (10:24→21:06)
[2018-03-15] MEDS: PANTOPRAZOLE 40 MG TABLET (FP) PO SCH (10:28)
[2018-03-15] MEDS: ATORVASTATIN CA 20 MG TABLET (FP) PO SCH (21:06)
[2018-03-15] MEDS: THIAMINE HCL 100 MG TABLET (FP) PO SCH (21:07)
[2018-03-15] MEDS: SIMETHICONE 80 MG TAB.CHEW (FP) PO PRN (21:08)
[2018-03-16] MEDS: metFORMIN HCL 500 MG TABLET (FP) PO SCH ×2 (06:24→17:47)
[2018-03-16] MEDS: amLODIPine BESYLATE 10 MG TABLET (FP) PO SCH (09:24)
[2018-03-16] MEDS: SULFAMETHOXAZOLE/TRIMETHOPRIM 800MG/160MG D.S. TABLET PO SCH ×2 (09:24→21:51)
[2018-03-16] MEDS: ASPIRIN COATED 81 MG TABLET.EC PO SCH (09:24)
[2018-03-16] MEDS: PRENATAL VITAMINS W/ FOLIC ACID TABLET (FP) PO SCH (09:24)
[2018-03-16] MEDS: PANTOPRAZOLE 40 MG TABLET (FP) PO SCH (09:24)
[2018-03-16] MEDS: BACITRACIN 0.9 GM PACKET TP SCH ×2 (09:24→21:50)
[2018-03-16] MEDS: GABAPENTIN 300 MG CAPSULE (FP) PO SCH ×2 (09:24→21:51)
[2018-03-16] MEDS: MAGNESIUM HYDROX 2400MG/30ML ORAL SUSPENSION 30 ML CUP PO PRN (15:34)
[2018-03-16] MEDS: ATORVASTATIN CA 20 MG TABLET (FP) PO SCH (21:51)
[2018-03-16] MEDS: THIAMINE HCL 100 MG TABLET (FP) PO SCH (21:51)
[2018-03-17] MEDS: MELATONIN 5 MG TABLETS PO PRN (00:01)
[2018-03-17] MEDS: metFORMIN HCL 500 MG TABLET (FP) PO SCH ×2 (06:20→17:37)
[2018-03-17] MEDS: ASPIRIN COATED 81 MG TABLET.EC PO SCH (10:01)
[2018-03-17] MEDS: GABAPENTIN 300 MG CAPSULE (FP) PO SCH ×2 (10:01→21:10)
[2018-03-17] MEDS: BACITRACIN 0.9 GM PACKET TP SCH ×2 (10:01→21:10)
[2018-03-17] MEDS: SULFAMETHOXAZOLE/TRIMETHOPRIM 800MG/160MG D.S. TABLET PO SCH ×2 (10:01→21:10)
[2018-03-17] MEDS: PRENATAL VITAMINS W/ FOLIC ACID TABLET (FP) PO SCH (10:01)
[2018-03-17] MEDS: PANTOPRAZOLE 40 MG TABLET (FP) PO SCH (10:01)
[2018-03-17] MEDS: amLODIPine BESYLATE 10 MG TABLET (FP) PO SCH (10:01)
[2018-03-17] MEDS: THIAMINE HCL 100 MG TABLET (FP) PO SCH (21:10)
[2018-03-17] MEDS: ATORVASTATIN CA 20 MG TABLET (FP) PO SCH (21:10)
[2018-03-18] MEDS: metFORMIN HCL 500 MG TABLET (FP) PO SCH ×2 (07:19→16:39)
[2018-03-18] MEDS: BACITRACIN 0.9 GM PACKET TP SCH ×2 (10:18→21:33)
[2018-03-18] MEDS: SULFAMETHOXAZOLE/TRIMETHOPRIM 800MG/160MG D.S. TABLET PO SCH ×2 (10:18→21:33)
[2018-03-18] MEDS: amLODIPine BESYLATE 10 MG TABLET (FP) PO SCH (10:18)
[2018-03-18] MEDS: GABAPENTIN 300 MG CAPSULE (FP) PO SCH ×2 (10:18→21:34)
[2018-03-18] MEDS: ASPIRIN COATED 81 MG TABLET.EC PO SCH (10:18)
[2018-03-18] MEDS: PANTOPRAZOLE 40 MG TABLET (FP) PO SCH (10:18)
[2018-03-18] MEDS: PRENATAL VITAMINS W/ FOLIC ACID TABLET (FP) PO SCH (10:18)
--- NOTE | 2018-03-18 15:49 | HP ---
GANESH MATHIS Rehab Assess/Revision - Admission History Ad[facility] to [facility]hab [facility] Date of Admission to Rehab: 03/12/18 - Vital signs Vital Signs: Vital Signs Period Temp Pulse Resp BP Sys/Metcalf Pulse Ox Last 24 Hr 97.5 F 87-90 18-18 112-117/70-72 - Findings Detox History & Physical reviewed: Yes Concur with findings: Yes Inpatient Rehab Admission - Initial Determination Are CD services needed?: Yes Free of communicable disease: Yes Not in need of hospitalization: Yes - Rehab Admission Criteria Patient is meeting Inpatient Rehab admission criteria:: Yes
[2018-03-18] MEDS: MELATONIN 5 MG TABLETS PO PRN (21:33)
[2018-03-18] MEDS: ATORVASTATIN CA 20 MG TABLET (FP) PO SCH (21:34)
[2018-03-18] MEDS: THIAMINE HCL 100 MG TABLET (FP) PO SCH (21:34)
[2018-03-19] MEDS: metFORMIN HCL 500 MG TABLET (FP) PO SCH ×2 (06:26→16:50)
[2018-03-19] MEDS: GABAPENTIN 300 MG CAPSULE (FP) PO SCH ×2 (10:18→21:45)
[2018-03-19] MEDS: amLODIPine BESYLATE 10 MG TABLET (FP) PO SCH (10:18)
[2018-03-19] MEDS: PRENATAL VITAMINS W/ FOLIC ACID TABLET (FP) PO SCH (10:18)
[2018-03-19] MEDS: ASPIRIN COATED 81 MG TABLET.EC PO SCH (10:18)
[2018-03-19] MEDS: BACITRACIN 0.9 GM PACKET TP SCH ×2 (10:18→21:44)
[2018-03-19] MEDS: SULFAMETHOXAZOLE/TRIMETHOPRIM 800MG/160MG D.S. TABLET PO SCH ×2 (10:18→21:45)
[2018-03-19] MEDS: PANTOPRAZOLE 40 MG TABLET (FP) PO SCH (10:18)
[2018-03-19] MEDS: MELATONIN 5 MG TABLETS PO PRN (21:44)
[2018-03-19] MEDS: THIAMINE HCL 100 MG TABLET (FP) PO SCH (21:45)
[2018-03-19] MEDS: ATORVASTATIN CA 20 MG TABLET (FP) PO SCH (21:45)
[2018-03-20] MEDS: metFORMIN HCL 500 MG TABLET (FP) PO SCH ×2 (07:11→18:10)
[2018-03-20] MEDS: PRENATAL VITAMINS W/ FOLIC ACID TABLET (FP) PO SCH (10:52)
[2018-03-20] MEDS: ASPIRIN COATED 81 MG TABLET.EC PO SCH (10:52)
[2018-03-20] MEDS: GABAPENTIN 300 MG CAPSULE (FP) PO SCH ×2 (10:52→22:41)
[2018-03-20] MEDS: PANTOPRAZOLE 40 MG TABLET (FP) PO SCH (10:52)
[2018-03-20] MEDS: amLODIPine BESYLATE 10 MG TABLET (FP) PO SCH (10:52)
[2018-03-20] MEDS: BACITRACIN 0.9 GM PACKET TP SCH ×2 (10:52→22:03)
[2018-03-20] MEDS: SULFAMETHOXAZOLE/TRIMETHOPRIM 800MG/160MG D.S. TABLET PO SCH ×2 (10:52→22:03)
[2018-03-20] MEDS: THIAMINE HCL 100 MG TABLET (FP) PO SCH (22:03)
[2018-03-20] MEDS: ATORVASTATIN CA 20 MG TABLET (FP) PO SCH (22:03)
[2018-03-20] MEDS: AMMONIUM LACTATE 12% LOTION 225 GM BOTTLE TP SCH (22:04)
[2018-03-21] MEDS: metFORMIN HCL 500 MG TABLET (FP) PO SCH ×2 (06:08→17:00)
[2018-03-21] MEDS: BACITRACIN 0.9 GM PACKET TP SCH ×2 (10:22→22:10)
[2018-03-21] MEDS: SULFAMETHOXAZOLE/TRIMETHOPRIM 800MG/160MG D.S. TABLET PO SCH ×2 (10:22→22:11)
[2018-03-21] MEDS: DOCUSATE SODIUM 100 MG CAPSULE (FP) PO SCH ×2 (10:23→22:10)
[2018-03-21] MEDS: AMMONIUM LACTATE 12% LOTION 225 GM BOTTLE TP SCH ×2 (10:23→22:10)
[2018-03-21] MEDS: GABAPENTIN 300 MG CAPSULE (FP) PO SCH ×2 (10:23→22:11)
[2018-03-21] MEDS: ASPIRIN COATED 81 MG TABLET.EC PO SCH (10:23)
[2018-03-21] MEDS: PANTOPRAZOLE 40 MG TABLET (FP) PO SCH (10:24)
[2018-03-21] MEDS: PRENATAL VITAMINS W/ FOLIC ACID TABLET (FP) PO SCH (10:24)
[2018-03-21] MEDS: amLODIPine BESYLATE 10 MG TABLET (FP) PO SCH (10:24)
[2018-03-21] MEDS: ATORVASTATIN CA 20 MG TABLET (FP) PO SCH (22:11)
[2018-03-21] MEDS: THIAMINE HCL 100 MG TABLET (FP) PO SCH (22:11)
[2018-03-22 06:50] VITALS: TEMP 97.8
[2018-03-22] MEDS: metFORMIN HCL 500 MG TABLET (FP) PO SCH (07:03)
--- NOTE | 2018-03-22 08:14 | PN ---
Psychiatric Progress Note Vital Signs: Vital Signs Period Temp Pulse Resp BP Sys/Metcalf Pulse Ox Last 24 Hr 97.8 F 90-101 - 105-129/63-81 Date of Session: 03/22/18 Chief Complaint:: Discharge Note HPI: Patient addressing Alcohol Dependence comobid with Nicotine Dependence, Alcoho-Induced Sleep Disorder ROS: HTN, HLD, Type 2 DM, GERD, Hep C, Neuropathy were medically managed Current Medications: Active Medications Generic Name Dose Route Start Last Admin Trade Name Freq PRN Reason Stop Dose Admin Acetaminophen 650 mg 03/07/18 12:18 Tylenol - PO Q4H PRN FEVER Al Hydroxide/Mg Hydroxide 30 ml 03/07/18 12:18 03/12/18 05:27 Mylanta Oral Suspension - PO 30 ml Q6H PRN Administration DYSPEPSIA Amlodipine Besylate 10 mg 03/08/18 10:00 03/21/18 10:24 Norvasc - PO 10 mg DAILY URIAH Administration Aspirin 81 mg 03/08/18 10:00 03/21/18 10:23 Ecotrin - PO 81 mg DAILY URIAH Administration Atorvastatin Calcium 20 mg 03/07/18 22:00 03/21/18 22:11 Lipitor - PO 20 mg HS URIAH Administration Bacitracin 0.9 gm 03/07/18 14:00 03/21/18 22:10 Bacitracin - TP 0.9 gm BID URIAH Administration Docusate Sodium 100 mg 03/21/18 10:00 03/21/18 22:10 Colace - PO 100 mg BID URIAH Administration Eucalyptus/Menthol/Phenol/Sorbitol 1 each 03/07/18 12:18 Cepastat Lozenge - MM Q4H PRN SORE THROAT Gabapentin 300 mg 03/07/18 22:00 03/21/18 22:11 Neurontin - PO 300 mg BID URIAH Administration Guaifenesin 10 ml 03/07/18 12:18 Robitussin Dm - PO Q6H PRN COUGH Hydroxyzine Pamoate 25 mg 03/07/18 12:18 Vistaril - PO Q4H PRN AGITATION Ibuprofen 400 mg 03/07/18 12:18 03/09/18 10:38 Motrin - PO 400 mg Q6H PRN Administration PAIN LEVEL 4-6 Lactic Acid 1 applic 03/20/18 22:00 03/21/18 22:10 Lac-Hydrin 12 TP 1 applic BID URIAH Administration Loperamide HCl 4 mg 03/07/18 12:18 Imodium - PO Q6H PRN DIARRHEA Magnesium Citrate 300 ml 03/07/18 12:18 Citroma - PO Q48H PRN CONSTIPATION Magnesium Hydroxide 30 ml 03/07/18 12:18 03/16/18 15:34 Milk Of Magnesia - PO 30 ml DAILY PRN Administration CONSTIPATION Melatonin 5 mg 03/07/18 22:00 03/19/18 21:44 Melatonin PO 5 mg HS PRN Administration INSOMNIA Metformin HCl 500 mg 03/10/18 16:30 03/22/18 07:03 Glucophage - PO 500 mg BID@0700,1630 URIAH Administration Pantoprazole Sodium 40 mg 03/08/18 10:00 03/21/18 10:24 Protonix - PO 40 mg DAILY URIAH Administration Multivit/Folic Acid/Iron 1 tab 03/08/18 10:00 03/21/18 10:24 Vitamins (Sjr) - PO 1 tab DAILY URIAH Administration Pseudoephedrine/Triprolidine 1 combo 03/07/18 12:18 Actifed - PO TID PRN NASAL CONGESTION Simethicone 80 mg 03/10/18 10:10 03/15/18 21:08 Mylicon - PO 80 mg QID PRN Administration GAS Thiamine HCl 100 mg 03/07/18 22:00 03/21/18 22:11 Vitamin B1 - PO 100 mg HS URIAH Administration Trimethoprim/Sulfamethoxazole 1 each 03/09/18 22:00 03/21/18 22:11 Bactrim Ds - PO 1 each BID URIAH Administration Current Side Effect: No Lab tests ordered: Yes Lab tests reviewed: Yes Provider note:: Patient has completed this program today. He has met his treatment goals and will continue to address his issues in outpatient treatment at [facility] at [address] [place] [address]. He is stable for discharge today Total face to face time:: 35 Mental Status Exam - Mental Status Exam Alert and Oriented to: Time, Place, Person Cognitive Function: Fair Patient Appearance: Well Groomed Mood: Hopeful, Euthymic Affect: Appropriate Patient Behavior: Cooperative Speech Pattern: Clear Voice Loudness: Normal Thought Process: Intact, Goal Oriented Thought Disorder: Not Present Hallucinations: Denies Suicidal Ideation: Denies Homicidal Ideation: Denies Insight/Judgement: Fair Sleep: Fair Appetite: Good Muscle strength/Tone: Normal Gait/Station: Normal Psychiatric Treatment Plan - Problem List (1) Alcohol dependence Current Visit: Yes (2) Nicotine dependence Current Visit: Yes Qualifiers: Nicotine product type: cigarettes Substance use status: in withdrawal Qualified Code(s): F17.213 - Nicotine dependence, cigarettes, with withdrawal (3) Alcohol-induced sleep disorder Current Visit: Yes (4) Essential hypertension Current Visit: Yes (5) hypercholesterolemia Current Visit: Yes (6) Type 2 diabetes mellitus with hyperglycemia Current Visit: Yes (7) Gastroesophageal reflux disease Current Visit: Yes (8) Hepatitis C Current Visit: Yes Qualifiers: Viral hepatitis chronicity: chronic Hepatic coma status: without hepatic coma Qualified Code(s): B18.2 - Chronic viral hepatitis C (9) Neuropathy Current Visit: Yes (10) s/p surgery for fx left elbow Current Visit: No Initial treatment plan: Patient is discharged today and referred to [facility] for outpatient treatment
--- NOTE | 2018-03-22 09:11 | PN ---
[facility] Progress Note Note: PT IS DISCHARGING THIS MORNING . PT REPORTS TO THIS CELLAR HAND THAT HE IS NOT INTERESTED IN AFTERCARE AND HAS MANY OTHER THINGS TO TAKE CARE OF AT THIS TIME. ALERT O X 3. PT REPORTS HAS A PRIMARY CARE WITH DR. DEWITT ON [place], [place]. INSTRUCTED PT TO FOLLOW UP WITH PMD FOR MEDICAL MANAGEMENT OF HIS COMORBID CONDITIONS. RX FOR COURTESY DOSE MEDS SENT TO HIS LISTED PHARMACY. Vital Signs - 24 hr 03/21/18 03/22/18 03/22/18 09:30 00:30 03:30 Temperature Pulse Rate 90 Respiratory 18 18 18 Rate Blood Pressure 129/81 03/22/18 06:50 Temperature 97.8 F Pulse Rate 101 H Respiratory 16 Rate Blood Pressure 105/63 Laboratory Tests 03/07/18 03/08/18 03/08/18 15:45 06:00 06:00 WBC 5.9 RBC 4.27 Hgb 13.7 Hct 42.1 MCV 98.7 H MCH 32.0 MCHC 32.4 RDW 17.3 H Plt Count 132 L D MPV 9.2 Sodium 137 Potassium 3.9 Chloride 103 Carbon Dioxide 26 Anion Gap 7 L BUN 16 Creatinine 0.8 Creat Clearance w eGFR > 60 POC Glucometer Random Glucose 213 H Calcium 9.5 Total Bilirubin 1.1 H AST 31 ALT 51 Alkaline Phosphatase 100 Total Protein 8.0 Albumin 3.5 Urine Color Jennifer Urine Appearance Clear Urine pH 6.0 Ur Specific [place] 1.030 Urine Protein 2+ H Urine Glucose (UA) Negative Urine Ketones 1+ H Urine Blood 1+ H Urine Nitrite Negative Urine Bilirubin Negative Urine Urobilinogen 4.0 e.u/dl Ur Leukocyte Esterase 2+ H Urine WBC (Auto) 106 Urine RBC (Auto) 7 Ur Epithelial Cells Urine Bacteria Rare Urine Mucus Many RPR Titer 03/08/18 03/08/18 03/09/18 06:00 17:02 05:50 WBC RBC Hgb Hct MCV MCH MCHC RDW Plt Count MPV Sodium Potassium Chloride Carbon Dioxide Anion Gap BUN Creatinine Creat Clearance w eGFR POC Glucometer 125 112 Random Glucose Calcium Total Bilirubin AST ALT Alkaline Phosphatase Total Protein Albumin Urine Color Urine Appearance Urine pH Ur Specific [place] Urine Protein Urine Glucose (UA) Urine Ketones Urine Blood Urine Nitrite Urine Bilirubin Urine Urobilinogen Ur Leukocyte Esterase Urine WBC (Auto) Urine RBC (Auto) Ur Epithelial Cells Urine Bacteria Urine Mucus RPR Titer Nonreactive 03/09/18 03/09/18 03/10/18 11:46 16:20 06:09 WBC RBC Hgb Hct MCV MCH MCHC RDW Plt Count MPV Sodium Potassium Chloride Carbon Dioxide Anion Gap BUN Creatinine Creat Clearance w eGFR POC Glucometer 165 126 128 Random Glucose Calcium Total Bilirubin AST ALT Alkaline Phosphatase Total Protein Albumin Urine Color Urine Appearance Urine pH Ur Specific [place] Urine Protein Urine Glucose (UA) Urine Ketones Urine Blood Urine Nitrite Urine Bilirubin Urine Urobilinogen Ur Leukocyte Esterase Urine WBC (Auto) Urine RBC (Auto) Ur Epithelial Cells Urine Bacteria Urine Mucus RPR Titer 03/10/18 03/10/18 03/11/18 07:30 16:58 05:49 WBC RBC Hgb Hct MCV MCH MCHC RDW Plt Count MPV Sodium Potassium Chloride Carbon Dioxide Anion Gap BUN Creatinine Creat Clearance w eGFR POC Glucometer 128 114 Random Glucose Calcium Total Bilirubin AST ALT Alkaline Phosphatase Total Protein Albumin Urine Color Dkyellow Urine Appearance Turbid Urine pH 7.0 Ur Specific [place] 1.018 Urine Protein Negative Urine Glucose (UA) Negative Urine Ketones Negative Urine Blood Negative Urine Nitrite Negative Urine Bilirubin Negative Urine Urobilinogen Negative Ur Leukocyte Esterase 2+ H Urine WBC (Auto) 163 Urine RBC (Auto) 1 Ur Epithelial Cells Rare Urine Bacteria Rare Urine Mucus Rare RPR Titer 03/11/18 03/12/18 03/12/18 16:29 05:26 17:08 WBC RBC Hgb Hct MCV MCH MCHC RDW Plt Count MPV Sodium Potassium Chloride Carbon Dioxide Anion Gap BUN Creatinine Creat Clearance w eGFR POC Glucometer 96 93 99 Random Glucose Calcium Total Bilirubin AST ALT Alkaline Phosphatase Total Protein Albumin Urine Color Urine Appearance Urine pH Ur Specific [place] Urine Protein Urine Glucose (UA) Urine Ketones Urine Blood Urine Nitrite Urine Bilirubin Urine Urobilinogen Ur Leukocyte Esterase Urine WBC (Auto) Urine RBC (Auto) Ur Epithelial Cells Urine Bacteria Urine Mucus RPR Titer 03/13/18 03/13/18 03/14/18 05:56 17:29 06:00 WBC RBC Hgb Hct MCV MCH MCHC RDW Plt Count MPV Sodium Potassium Chloride Carbon Dioxide Anion Gap BUN Creatinine Creat Clearance w eGFR POC Glucometer 90 120 100 Random Glucose Calcium Total Bilirubin AST ALT Alkaline Phosphatase Total Protein Albumin Urine Color Urine Appearance Urine pH Ur Specific [place] Urine Protein Urine Glucose (UA) Urine Ketones Urine Blood Urine Nitrite Urine Bilirubin Urine Urobilinogen Ur Leukocyte Esterase Urine WBC (Auto) Urine RBC (Auto) Ur Epithelial Cells Urine Bacteria Urine Mucus RPR Titer 03/14/18 03/15/18 03/15/18 17:01 06:01 17:00 WBC RBC Hgb Hct MCV MCH MCHC RDW Plt Count MPV Sodium Potassium Chloride Carbon Dioxide Anion Gap BUN Creatinine Creat Clearance w eGFR POC Glucometer 84 76 104 Random Glucose Calcium Total Bilirubin AST ALT Alkaline Phosphatase Total Protein Albumin Urine Color Urine Appearance Urine pH Ur Specific [place] Urine Protein Urine Glucose (UA) Urine Ketones Urine Blood Urine Nitrite Urine Bilirubin Urine Urobilinogen Ur Leukocyte Esterase Urine WBC (Auto) Urine RBC (Auto) Ur Epithelial Cells Urine Bacteria Urine Mucus RPR Titer 03/16/18 03/16/18 03/17/18 06:23 17:45 06:19 WBC RBC Hgb Hct MCV MCH MCHC RDW Plt Count MPV Sodium Potassium Chloride Carbon Dioxide Anion Gap BUN Creatinine Creat Clearance w eGFR POC Glucometer 114 336 85 Random Glucose Calcium Total Bilirubin AST ALT Alkaline Phosphatase Total Protein Albumin Urine Color Urine Appearance Urine pH Ur Specific [place] Urine Protein Urine Glucose (UA) Urine Ketones Urine Blood Urine Nitrite Urine Bilirubin Urine Urobilinogen Ur Leukocyte Esterase Urine WBC (Auto) Urine RBC (Auto) Ur Epithelial Cells Urine Bacteria Urine Mucus RPR Titer 03/17/18 03/18/18 03/18/18 16:54 05:55 11:48 WBC RBC Hgb Hct MCV MCH MCHC RDW Plt Count MPV Sodium Potassium Chloride Carbon Dioxide Anion Gap BUN Creatinine Creat Clearance w eGFR POC Glucometer 212 73 82 Random Glucose Calcium Total Bilirubin AST ALT Alkaline Phosphatase Total Protein Albumin Urine Color Urine Appearance Urine pH Ur Specific [place] Urine Protein Urine Glucose (UA) Urine Ketones Urine Blood Urine Nitrite Urine Bilirubin Urine Urobilinogen Ur Leukocyte Esterase Urine WBC (Auto) Urine RBC (Auto) Ur Epithelial Cells Urine Bacteria Urine Mucus RPR Titer 03/18/18 03/19/18 03/19/18 16:39 06:25 16:50 WBC RBC Hgb Hct MCV MCH MCHC RDW Plt Count MPV Sodium Potassium Chloride Carbon Dioxide Anion Gap BUN Creatinine Creat Clearance w eGFR POC Glucometer 76 85 92 Random Glucose Calcium Total Bilirubin AST ALT Alkaline Phosphatase Total Protein Albumin Urine Color Urine Appearance Urine pH Ur Specific [place] Urine Protein Urine Glucose (UA) Urine Ketones Urine Blood Urine Nitrite Urine Bilirubin Urine Urobilinogen Ur Leukocyte Esterase Urine WBC (Auto) Urine RBC (Auto) Ur Epithelial Cells Urine Bacteria Urine Mucus RPR Titer 03/20/18 03/20/18 03/21/18 05:54 16:48 06:07 WBC RBC Hgb Hct MCV MCH MCHC RDW Plt Count MPV Sodium Potassium Chloride Carbon Dioxide Anion Gap BUN Creatinine Creat Clearance w eGFR POC Glucometer 119 97 99 Random Glucose Calcium Total Bilirubin AST ALT Alkaline Phosphatase Total Protein Albumin Urine Color Urine Appearance Urine pH Ur Specific [place] Urine Protein Urine Glucose (UA) Urine Ketones Urine Blood Urine Nitrite Urine Bilirubin Urine Urobilinogen Ur Leukocyte Esterase Urine WBC (Auto) Urine RBC (Auto) Ur Epithelial Cells Urine Bacteria Urine Mucus RPR Titer 03/21/18 03/22/18 17:00 07:03 WBC RBC Hgb Hct MCV MCH MCHC RDW Plt Count MPV Sodium Potassium Chloride Carbon Dioxide Anion Gap BUN Creatinine Creat Clearance w eGFR POC Glucometer 79 94 Random Glucose Calcium Total Bilirubin AST ALT Alkaline Phosphatase Total Protein Albumin Urine Color Urine Appearance Urine pH Ur Specific [place] Urine Protein Urine Glucose (UA) Urine Ketones Urine Blood Urine Nitrite Urine Bilirubin Urine Urobilinogen Ur Leukocyte Esterase Urine WBC (Auto) Urine RBC (Auto) Ur Epithelial Cells Urine Bacteria Urine Mucus RPR Titer NAD PLAN:F/U WITH PRIMARY CARE WITHIN ONE WEEK.
[2018-03-22 09:47] VITALS: BP 117/75; PULSE 87
== END 2018-03-22 10:05 | disposition home or self-care (01) | DRG 895 ==
LOC: YASAS 10:17 → Y3N 13:05 → Y3W 03-12 13:35
PROVIDERS: ATTEND Psychiatry & Neurology Psychiatry
PROC: HZ42ZZZ Group Counseling for Substance Abuse Treatment, Cognitive-Behavioral (ICD-10-PCS; principal; 2018-03-07)
DX: F10.20 Alcohol dependence, uncomplicated (principal); F19.282 Other psychoactive substance dependence with psychoactive substance-induced sleep disorder; N39.0 Urinary tract infection, site not specified; F17.213 Nicotine dependence, cigarettes, with withdrawal; I10 Essential (primary) hypertension; E78.00 Pure hypercholesterolemia, unspecified; E11.65 Type 2 diabetes mellitus with hyperglycemia; Z79.84 Long term (current) use of oral hypoglycemic drugs; D69.6 Thrombocytopenia, unspecified; K21.9 Gastro-esophageal reflux disease without esophagitis; B18.2 Chronic viral hepatitis C; G62.9 Polyneuropathy, unspecified; R82.90 Unspecified abnormal findings in urine; S80.211A Abrasion, right knee, initial encounter; Z87.81 Personal history of (healed) traumatic fracture; Z89.422 Acquired absence of other left toe(s); Z91.81 History of falling; Z98.890 Other specified postprocedural states; Z59.0 Homelessness
CPT/HCPCS: 36415; 80053; 81003; 81015; 82962; 85027; 86593; 87086; 93005; 93010

== ENCOUNTER 2018-05-27 09:27 | Inpatient (IN) | payer OTHER ==
[2018-05-27 09:55] VITALS: BMI 23.3
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
[2018-05-27] MEDS ORDERED: MAG HYDROX/AL HYDROX/SIMETH 30 ML UNIT-DOSE CUP PO PRN (13:45)
[2018-05-27] MEDS ORDERED: MENTHOL/PHENOL 1 EACH UD MM PRN (13:45)
[2018-05-27] MEDS ORDERED: chlordiazePOXIDE HCL 25 MG CAPSULE PO PRN (13:45)
[2018-05-27] MEDS ORDERED: IBUPROFEN 400 MG TABLET (FP) PO PRN (13:45)
[2018-05-27] MEDS ORDERED: MAGNESIUM HYDROX 2400MG/30ML ORAL SUSPENSION 30 ML CUP PO PRN (13:45)
[2018-05-27] MEDS ORDERED: hydrOXYzine PAMOATE 50 MG CAPSULE (FP) PO PRN (13:45)
[2018-05-27] MEDS ORDERED: P-EPHED 60MG/TRIPROLIDI 2.5MG TABLET PO PRN (13:45)
[2018-05-27] MEDS ORDERED: LOPERAMIDE HCL 2 MG CAPSULE PO PRN (13:45)
[2018-05-27] MEDS ORDERED: MAGNESIUM CITRATE 300 ML BOTTLE PO PRN (13:45)
[2018-05-27] MEDS ORDERED: NICOTINE POLACRILEX 4 MG GUM BUC PRN (13:45)
[2018-05-27] MEDS ORDERED: chlordiazePOXIDE HCL 25 MG CAPSULE PO ONE (13:50)
[2018-05-27] MEDS: chlordiazePOXIDE HCL 25 MG CAPSULE PO SCH ×2 (18:05→22:02)
[2018-05-27] MEDS ORDERED: MELATONIN 5 MG TABLETS PO PRN (22:00)
[2018-05-27] MEDS: THIAMINE HCL 100 MG TABLET (FP) PO SCH (22:02)
[2018-05-27] MEDS: GABAPENTIN 300 MG CAPSULE (FP) PO SCH (22:02)
[2018-05-27] MEDS: ATORVASTATIN CA 40 MG TABLET (FP) PO SCH (22:02)
[2018-05-28] MEDS: chlordiazePOXIDE HCL 25 MG CAPSULE PO SCH ×5 (06:32→23:26)
[2018-05-28] MEDS: amLODIPine BESYLATE 10 MG TABLET (FP) PO SCH (10:13)
[2018-05-28] MEDS: PANTOPRAZOLE 40 MG TABLET (FP) PO SCH (10:13)
[2018-05-28] MEDS: PRENATAL VITAMINS W/ FOLIC ACID TABLET (FP) PO SCH (10:13)
[2018-05-28] MEDS: ASPIRIN COATED 81 MG TABLET.EC PO SCH (10:13)
[2018-05-28] MEDS: GABAPENTIN 300 MG CAPSULE (FP) PO SCH ×2 (10:13→22:08)
[2018-05-28] MEDS: NICOTINE 21 MG/24 HOURS TOPICAL PATCH TD SCH (10:15)
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
[2018-05-28 11:05] LABS: HEMATOCRIT 47.2 % (35.4-49); HEMOGLOBIN 15.1 GM/dL (11.7-16.9); MCHC 32.1 g/dl (32.0-35.9); MEAN CELL VOLUME 96.8 fl (80-96); MEAN PLT VOLUME 9.1 fl (7.5-11.1); PLATELET COUNT 177 K/MM3 (134-434); RBC 4.88 M/mm3 (4.00-5.60); RDW 15.5 % (11.9-15.9); WHITE BLOOD COUNT 3.7 K/mm3 (4.0-10.0)
[2018-05-28 11:25] LABS: ALBUMIN 3.6 g/dl (3.4-5.0); ALK PHOS 106 U/L (45-117); ANION GAP 7 MMOL/L (8-16); BILIRUBIN,TOTAL 0.4 mg/dL (0.2-1); BLOOD UREA NITROGEN 19 mg/dL (7-18); CALCIUM 9.1 mg/dL (8.5-10.1); CHLORIDE 100 mmol/L (98-107); CO2 30 mmol/L (21-32); CREATININE 0.7 mg/dL (0.55-1.3); GLUCOSE,RANDOM 75 mg/dL (74-106); POTASSIUM 4.2 mmol/L (3.5-5.1); SGOT/AST 107 U/L (15-37); SGPT/ALT 93 U/L (13-61); SODIUM 137 mmol/L (136-145); TOT PROT 8.1 g/dl (6.4-8.2)
[2018-05-28] MEDS ORDERED: FLU VACCINE QUAD 60 MCG/0.5 ML (MDV 18-19) IM ONE (12:00)
[2018-05-28] MEDS: CEPHALEXIN MONOHYDRATE 500 MG CAPSULE (UD) PO SCH ×3 (12:22→23:27)
[2018-05-28] MEDS: SILVER SULFADIAZINE 1% TOP CREAM 50 GM JAR TP SCH ×2 (13:29→22:24)
[2018-05-28] MEDS: ATORVASTATIN CA 40 MG TABLET (FP) PO SCH (22:08)
[2018-05-28] MEDS: THIAMINE HCL 100 MG TABLET (FP) PO SCH (22:08)
[2018-05-28] MEDS: ACETAMINOPHEN 325 MG TABLET (FP) PO PRN (22:23)
[2018-05-28] MEDS: guaiFENesin/D-METHORPHAN HB 10 ML UNIT-DOSE CUPS PO PRN (22:23)
[2018-05-29] MEDS: chlordiazePOXIDE HCL 25 MG CAPSULE PO SCH ×2 (05:32→10:27)
[2018-05-29] MEDS: CEPHALEXIN MONOHYDRATE 500 MG CAPSULE (UD) PO SCH ×4 (05:32→23:03)
[2018-05-29] MEDS: SILVER SULFADIAZINE 1% TOP CREAM 50 GM JAR TP SCH ×4 (10:00→23:04)
[2018-05-29] MEDS: PRENATAL VITAMINS W/ FOLIC ACID TABLET (FP) PO SCH (10:26)
[2018-05-29] MEDS: NICOTINE 21 MG/24 HOURS TOPICAL PATCH TD SCH (10:27)
[2018-05-29] MEDS: ASPIRIN COATED 81 MG TABLET.EC PO SCH (10:27)
[2018-05-29] MEDS: PANTOPRAZOLE 40 MG TABLET (FP) PO SCH (10:27)
[2018-05-29] MEDS: GABAPENTIN 300 MG CAPSULE (FP) PO SCH ×2 (10:27→22:05)
[2018-05-29] MEDS: amLODIPine BESYLATE 10 MG TABLET (FP) PO SCH (10:27)
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
[2018-05-29] MEDS: chlordiazePOXIDE 5 MG CAPSULE PO SCH ×2 (17:48→23:04)
[2018-05-29] MEDS: THIAMINE HCL 100 MG TABLET (FP) PO SCH (22:05)
[2018-05-29] MEDS: ATORVASTATIN CA 40 MG TABLET (FP) PO SCH (22:05)
[2018-05-29] MEDS: guaiFENesin/D-METHORPHAN HB 10 ML UNIT-DOSE CUPS PO PRN (22:05)
[2018-05-30] MEDS: chlordiazePOXIDE 5 MG CAPSULE PO SCH ×2 (06:14→11:19)
[2018-05-30] MEDS: CEPHALEXIN MONOHYDRATE 500 MG CAPSULE (UD) PO SCH ×5 (06:14→23:20)
[2018-05-30] MEDS: amLODIPine BESYLATE 10 MG TABLET (FP) PO SCH (11:17)
[2018-05-30] MEDS: PRENATAL VITAMINS W/ FOLIC ACID TABLET (FP) PO SCH (11:17)
[2018-05-30] MEDS: NICOTINE 21 MG/24 HOURS TOPICAL PATCH TD SCH (11:17)
[2018-05-30] MEDS: ASPIRIN COATED 81 MG TABLET.EC PO SCH (11:17)
[2018-05-30] MEDS: PANTOPRAZOLE 40 MG TABLET (FP) PO SCH (11:17)
[2018-05-30] MEDS: SILVER SULFADIAZINE 1% TOP CREAM 50 GM JAR TP SCH ×2 (11:19→23:13)
[2018-05-30] MEDS: GABAPENTIN 300 MG CAPSULE (FP) PO SCH (11:19)
[2018-05-30] MEDS: ACETAMINOPHEN 325 MG TABLET (FP) PO PRN (11:22)
[2018-05-30] MEDS ORDERED: PERMETHRIN 5% TOPICAL CREAM 60 GM TUBE TP ONE (14:10)
--- NOTE | 2018-05-30 15:48 | PN ---
BHS Progress Note (SOAP) Subjective: Fatigue. Objective: PATIENT A & O X 3, OBSERVED AMBULATING ON UNIT. IN NO ACUTE DISTRESS. 05/30/18 15:49 Vital Signs Temperature 99.0 F 05/30/18 14:05 Pulse Rate 113 H 05/30/18 14:05 Respiratory Rate 20 05/30/18 14:05 Blood Pressure 132/75 05/30/18 14:05 O2 Sat by Pulse Oximetry (%) Laboratory Tests 05/27/18 05/28/18 05/28/18 11:20 06:00 06:00 WBC 3.7 L RBC 4.88 Hgb 15.1 Hct 47.2 MCV 96.8 H MCH 31.0 MCHC 32.1 RDW 15.5 D Plt Count 177 D MPV 9.1 Sodium 137 Potassium 4.2 Chloride 100 Carbon Dioxide 30 Anion Gap 7 L BUN 19 H Creatinine 0.7 Creat Clearance w eGFR > 60 Random Glucose 75 Calcium 9.1 Total Bilirubin 0.4 AST 107 H ALT 93 H Alkaline Phosphatase 106 Total Protein 8.1 Albumin 3.6 RPR Titer HIV 1&2 Antibody Screen Negative HIV P24 Antigen Negative 05/28/18 06:00 WBC RBC Hgb Hct MCV MCH MCHC RDW Plt Count MPV Sodium Potassium Chloride Carbon Dioxide Anion Gap BUN Creatinine Creat Clearance w eGFR Random Glucose Calcium Total Bilirubin AST ALT Alkaline Phosphatase Total Protein Albumin RPR Titer Nonreactive HIV 1&2 Antibody Screen HIV P24 Antigen LABS NOTED. 05/30/18 15:50 Assessment: 05/30/18 15:50 WITHDRAWAL SYMPTOMS. Plan: CONTINUE DETOX. NOTE: SEVERAL LICE VISUALIZED ON PATIENT'S PILLOW CASE WHILE PILLOW WAS LYING ON BEDISDE TABLE. PATIENT DENEIS SENSATIONS OF ITCHING ON HEAD OR BODY. NO IRRITATION OR LICE NOTED ON VISUAL INSPECTION OF PATIENT'S BODY OR HEAD. ELIMITE TOPICAL X 1 DOSE ORDERED. AFTER SHOWER AND APPLICATION OF ELIMITE, PATIENT ADVISED TO REMAIN IN HIS ROOM UNTIL TAKING A FOLLOW-UP SHOWER TOMORROW AM. PATIENT VERBALIZED UNDERSTANDING OF RECOMMENDATION.
[2018-05-30] MEDS: chlordiazePOXIDE HCL 10 MG CAPSULE PO SCH ×2 (18:45→23:12)
[2018-05-30] MEDS: THIAMINE HCL 100 MG TABLET (FP) PO SCH (23:20)
[2018-05-30] MEDS: ATORVASTATIN CA 40 MG TABLET (FP) PO SCH (23:20)
[2018-05-31] MEDS: guaiFENesin/D-METHORPHAN HB 10 ML UNIT-DOSE CUPS PO PRN (01:51)
[2018-05-31] MEDS: CEPHALEXIN MONOHYDRATE 500 MG CAPSULE (UD) PO SCH ×2 (06:17→12:07)
[2018-05-31] MEDS: chlordiazePOXIDE HCL 10 MG CAPSULE PO SCH ×2 (06:18→11:29)
[2018-05-31 09:30] VITALS: BP 94/69; PULSE 108; TEMP 98
[2018-05-31] MEDS: PRENATAL VITAMINS W/ FOLIC ACID TABLET (FP) PO SCH (11:27)
[2018-05-31] MEDS: ASPIRIN COATED 81 MG TABLET.EC PO SCH (11:27)
[2018-05-31] MEDS: NICOTINE 21 MG/24 HOURS TOPICAL PATCH TD SCH (11:27)
[2018-05-31] MEDS: amLODIPine BESYLATE 10 MG TABLET (FP) PO SCH (11:27)
[2018-05-31] MEDS: PANTOPRAZOLE 40 MG TABLET (FP) PO SCH (11:28)
[2018-05-31] MEDS: SILVER SULFADIAZINE 1% TOP CREAM 50 GM JAR TP SCH (12:08)
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
== END 2018-05-31 12:35 | disposition other institution (70) | DRG 897 ==
LOC: YASAS 09:27 → Y6N 11:49
PROC: HZ2ZZZZ Detoxification Services for Substance Abuse Treatment (ICD-10-PCS; principal; 2018-05-27)
DX: F10.230 Alcohol dependence with withdrawal, uncomplicated (principal); L97.528 Non-pressure chronic ulcer of other part of left foot with other specified severity; F17.210 Nicotine dependence, cigarettes, uncomplicated; B18.2 Chronic viral hepatitis C; B85.0 Pediculosis due to Pediculus humanus capitis; L84 Corns and callosities; L08.89 Other specified local infections of the skin and subcutaneous tissue; E78.00 Pure hypercholesterolemia, unspecified; K21.9 Gastro-esophageal reflux disease without esophagitis; Z89.422 Acquired absence of other left toe(s); Z91.14 Patient's other noncompliance with medication regimen
CPT/HCPCS: 36415; 80053; 85027; 86593; 87389; 90688; G0008